=== PATIENT | male | born 1980 ===

== ENCOUNTER 2020-08-26 17:00 | Emergency (ER) | payer OTHER, MEDICAID, SELFPAY ==
[2020-08-26 17:39] VITALS: BP 160/112; BP 170/100; PULSE 83; PULSE 89; RESP 16; TEMP 36.5; O2SAT 97; O2SAT 98; BMI 38.9
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
[2020-08-26] MEDS: Ibuprofen 800 MG TABLET PO (18:39)
[2020-08-26 19:23] VITALS: BP 158/107; PULSE 61; RESP 17; O2SAT 98
== END 2020-08-26 19:31 | disposition home or self-care (01) ==
PROVIDERS: Emergency Provider Internal Medicine
DX: S80.01XA Contusion of right knee, initial encounter (principal); S20.213A Contusion of bilateral front wall of thorax, initial encounter; R07.89 Other chest pain; M25.561 Pain in right knee; Y29.XXXA Contact with blunt object, undetermined intent, initial encounter; Y93.9 Activity, unspecified; Y92.810 Car as the place of occurrence of the external cause
CPT/HCPCS: 71046; 73564; 99283; 99284

== ENCOUNTER 2020-09-13 11:12 | Emergency (ER) | payer OTHER, MEDICAID, SELFPAY ==
[2020-09-13 11:24] VITALS: BP 130/89; PULSE 103; RESP 16; TEMP 36.9; O2SAT 97; BMI 35.4
--- NOTE | 2020-09-13 11:30 | XR_ITS ---
EXAMINATION: CR CHEST CLINICAL INFORMATION: Chest pain. COMPARISON: Several prior chest x-rays, most recent of which is dated 08/26/2020. TECHNIQUE: AP upright portable view of the chest was obtained. FINDINGS: EKG leads overlie the chest. The cardiomediastinal silhouette is within normal limits in size. Lungs bilaterally are symmetrically expanded and clear. No focal consolidation, effusion or pneumothorax is seen. Bony structures are unremarkable. XR/XR chest 1V IMPRESSION: Unremarkable examination.
--- NOTE | 2020-09-13 11:31 | ECG_ITS ---
Test Reason : CP Blood Pressure : / mmHG Vent. Rate : 094 BPM Atrial Rate : 094 BPM P-R Int : 152 ms QRS Dur : 088 ms QT Int : 356 ms P-R-T Axes : 024 -15 -01 degrees QTc Int : 445 ms Normal sinus rhythm Voltage criteria for left ventricular hypertrophy Nonspecific T wave abnormality Inferior leads Abnormal ECG When compared with ECG of 17-MAY-2020 13:04, No significant change was found Heart rate has increased Referred By: Reji Sorenson Electronically Signed By:GEOFF CRUZ MD
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
[2020-09-13 11:47] VITALS: PULSE 110; RESP 18
[2020-09-13 11:53] LABS: Basophils Absolute Auto 0.1 X10*3/uL (0.0-0.2); Basophils Percent Auto 0.5 % (0-2); Eosinophils Absolute Auto 0.1 X10*3/uL (0.0-0.4); Eosinophils Percent Auto 1.5 % (0-4); Hematocrit 46.4 % (42-52); Hemoglobin 15.9 g/dl (14.0-18.0); Imm Gran Abs Auto 0.03 X10*3/uL (0.00-0.03); Imm Gran Pct Auto 0.3 % (0.0-0.4); Lymphocytes Absolute Auto 2.4 X10*3/uL (1.2-4.9); Lymphocytes Percent Auto 25.2 % (20-40); MANUAL DIFF FLAG NO; Mean Corpuscular HGB Conc 34.3 g/dl (31.0-36.0); Mean Corpuscular Hemoglobin 29.8 pg (27.0-33.0); Mean Corpuscular Volume 86.9 fL (80-98); Monocytes Absolute Auto 0.7 X10*3/uL (0.1-1.2); Monocytes Percent Auto 7.2 % (2-11); Neutrophils Absolute Auto 6.1 X10*3/uL (2.0-8.3); Neutrophils Percent Auto 65.3 % (45-73); Platelet Count 272 X10*3/uL (160-400); Red Blood Count 5.34 X10*6/uL (4.60-5.80); Red Cell Distribution Width 13.7 % (11.0-16.0); White Blood Count 9.4 X10*3/uL (4.8-10.8)
[2020-09-13 12:05] LABS: D Dimer < 200 NG/ML
[2020-09-13 12:25] LABS: Anion Gap 12 (12-20); Blood Urea Nitrogen 22 mg/dL (9-16); Calcium 8.8 mg/dL (8.4-10.2); Carbon Dioxide 29 mmol/L (22-29); Chloride 105 mmol/L (96-108); Creatinine Clr Calc Pharmacy 69.9; Estimated Glomerular Filt Rate 57; Glucose Random 100 mg/dL (60-115); Potassium 4.2 mmol/l (3.3-5.1); Sodium 142 mmol/L (135-145)
[2020-09-13 12:33] LABS: B Type Natriuretic Peptide < 10 pg/mL (<100); Troponin-I High Sensitivity < 3.5 ng/L (<3.5-35.0)
== END 2020-09-13 13:04 | disposition home or self-care (01) ==
PROVIDERS: Emergency Provider Emergency Medicine; PCP Family Medicine
DX: S20.213A Contusion of bilateral front wall of thorax, initial encounter (principal); R07.9 Chest pain, unspecified; I10 Essential (primary) hypertension; V43.52XA Car driver injured in collision with other type car in traffic accident, initial encounter; Y93.9 Activity, unspecified; Y92.410 Unspecified street and highway as the place of occurrence of the external cause; Y99.9 Unspecified external cause status; Z79.899 Other long term (current) drug therapy
CPT/HCPCS: 36415; 71045; 80048; 83880; 84484; 85025; 85379; 93005; 99283; 99285

== ENCOUNTER 2020-10-27 11:52 | Outpatient (REF) | payer MEDICAID, SELFPAY | END 2020-10-27 11:53 | disposition home or self-care (01) | LOC: HO.LAB 11:52 | PROVIDERS: PCP Family Medicine; Visit Provider Internal Medicine | DX: Z20.828 Contact with and (suspected) exposure to other viral communicable diseases (principal) | CPT/HCPCS: C9803; U0003 ==

== ENCOUNTER 2020-11-13 14:59 | Emergency (ER) | payer MEDICAID, SELFPAY ==
[2020-11-13 15:21] VITALS: BP 153/98; PULSE 87; RESP 18; TEMP 37.3; O2SAT 97; BMI 38.0
[2020-11-13 15:41] VITALS: BP 161/101; PULSE 73; RESP 24; TEMP 36.9; O2SAT 98
--- NOTE | 2020-11-13 15:49 | XR_ITS ---
EXAMINATION: XR CHEST CLINICAL INFORMATION: Rule out pneumonia. COMPARISON: Several priors. Most recent of 09/13/20. TECHNIQUE: Frontal view of the chest was obtained. FINDINGS: No significant abnormality is noted involving the heart, lungs, mediastinum, bony thorax or soft tissues. No focal consolidation or other abnormality. XR/XR chest 1V IMPRESSION: Unremarkable examination.
[2020-11-13 16:00] VITALS: BP 140/67; PULSE 76; RESP 18; TEMP 36.7; O2SAT 97
--- NOTE | 2020-11-13 16:12 | ED.URI ---
HPI - URI/Sore Throat General Chief Complaint: Upper Respiratory Symptoms Stated Complaint: cough,dirrhea, Time Seen by Provider: 11/13/20 15:49 Source: patient Mode of arrival: ambulatory Limitations: no limitations History of Present Illness HPI Narrative: 40-year-old male with past medical history of hypertension, migraines here with complaints of cough, body aches, tactile temps, diarrhea times several days. at home has COVID. He had a test on November 10 which is negative. Continued symptoms. No shortness of breath, chest pain, vomiting, abdominal pain. MD elicited complaint: cough Onset (ago): day(s) Consistency: constant Severity: mild Able to tolerate fluids by mouth: Yes Exacerbating factors: nothing Relieving factors: nothing Associated symptoms: fever, chills, myalgias, cough and diarrhea Treatments prior to arrival: none Related Data Previous Rx's Medication Instructions Recorded naproxen 500 mg PO BID PRN #20 tab 08/26/20 Allergies Allergy/AdvReac Type Severity Reaction Status Date / Time No Known Allergies Allergy Verified 08/26/20 18:28 Review of Systems Review of Systems: Yes all other systems are reviewed and are negative Constitutional: Constitutional: Reports no additional constitutional complaints, Reports body ache(s), Reports chills, Reports fever(s), Denies headache(s) and Denies weakness Eyes: Eyes: Reports no additional eye complaints and Denies change in vision ENT: Reports system reviewed and no additional complaints, except as documented, Denies dizziness, Denies headache(s), Denies nasal congestion, Denies nasal discharge and Denies neck pain Cardiovascular: Cardiovascular: Reports no additional cardiovascular complaints, Denies chest pain, Denies leg edema and Denies dyspnea Respiratory: Respiratory: Reports no additional respiratory complaints, Reports cough and Denies dyspnea Gastrointestinal: Gastrointestinal: Reports no additional gastrointestinal complaints, Denies abdominal pain, Reports diarrhea, Denies nausea and Denies vomiting Genitourinary: Genitourinary: Denies urinary incontinence Musculoskeletal: Musculoskeletal: Reports no additional musculoskeletal complaints, Denies back pain, Denies arthralgias, Denies joint swelling, Denies neck pain, Denies numbness and Denies tingling Integumentary/Breasts: Skin/Breast: Reports system reviewed and no additional complaints, except as docu and Denies rash Neurologic: Denies Abnormal speech present, Denies dizziness, Denies headache(s), Denies numbness, Denies tingling and Denies weakness PMFSH Past Medical History Attestation statement: The following information was validated with the patient. Source: old records reviewed and nursing notes reviewed Medical History Hernia HTN (hypertension) Migraines Social History Social History Alcohol intake: never Smoking Status: Never smoker Advance Directives: No Advance Directives Information Provided: No Physical Exam Vital Signs: Vital Signs: Last Vital Signs Temp 98.0 F 11/13/20 16:00 Pulse 76 11/13/20 16:00 Resp 18 11/13/20 16:00 BP 140/67 H 11/13/20 16:00 Pulse Ox 97 11/13/20 16:00 Body Mass Index 38.0 Const: General: cooperative, healthy appearing, comfortable and no acute distress Orientation/consciousness: patient oriented x3 Limitations: no limitations HENMT: Head: Yes normal to inspection Ears: hearing grossly normal bilaterally General nose exam: Normal external nose present Face and sinus: Yes normal facial exam Mouth: Normal oral and palatal mucosa present Throat: Yes posterior oropharynx normal Eyes: General: appearance normal, both eyes and all related structures Pupils: Equal, round and reactive pupils present Neck: Neck: Yes normal visual inspection Chest: Chest palpation & inspection: normal inspection of the chest Resp: Effort & Inspection: normal respiratory effort Auscultation: clear to auscultation bilaterally Cardio: Rate: regular rate Rhythm: regular rhythm Peripheral pulses: Peripheral pulses 2+ throughout GI: Inspection: Yes normal to inspection Palpation (GI): Soft to palpation and nontender Auscultation: normal bowel sounds Back/Spine/Pelvis: Thoracic/Lumbar Spine: thoracic and lumbar spine normal to inspection Skin: General skin exam: no rashes or lesions noted Neuro: General: patient oriented x3, no focal motor deficits and normal sensation to monofilament Cranial nerves: Yes Equal, round and reactive pupils present Cognition (Neuro): normal cognition Speech: No Abnormal speech present Gait exam (Neuro): Normal gait present Motor exam (neuro): 5/5 motor strength present throughout Extrem: General: Yes normal to inspection Course Course Course Narrative: Flu like symptoms x 4 days. Will check covid, CXR. 1800-chest x-ray is negative. COVID test is positive. Patient has stable vital signs and stable oxygenation. Reviewed findings with the patient. Reviewed worrisome signs and symptoms and when to return to the emergency department. Comfortable discharge home. MDM - URI/Sore Throat Medical Records Attestation: I reviewed the patient's medical records. Lab Data Attestation: I reviewed the patient's lab results. Labs: Lab Results 11/13/20 Range/Units 16:26 Coronavirus (PCR) POSITIVE A (Negative) Influenza Type A (PCR) NEGATIVE (Negative) Influenza Type B (PCR) NEGATIVE (Negative) RSV RNA Qual (PCR) NEGATIVE (Negative) Imaging Data Chest x-ray: Attestation: I personally reviewed and interpreted this imaging study as follows: Radiologist's impression: EXAMINATION: XR CHEST CLINICAL INFORMATION: Rule out pneumonia. COMPARISON: Several priors. Most recent of 09/13/20. TECHNIQUE: Frontal view of the chest was obtained. FINDINGS: No significant abnormality is noted involving the heart, lungs, mediastinum, bony thorax or soft tissues. No focal consolidation or other abnormality. XR/XR chest 1V IMPRESSION: Unremarkable examination. Discharge Plan Discharge Clinical Impression: COVID-19 Patient Disposition: Home, Self-Care Instructions: COVID-19 (Coronavirus Disease 2019) (ED) Additional Instructions: Your test today for COVID was positive. You need to self isolate for total of 10 days from when her symptoms started and he must to resolve for 24 hours. Motrin or Tylenol for pain or fever as needed Increase fluids, rest Prescriptions: No Action naproxen 500 mg tablet 500 mg PO BID PRN (Reason: pain) Qty: 20 RF: 0 Referrals: Yue Mei DO [Primary Care Provider] - 2 days Stand Alone Forms: Work/School Release Interventions: ED Discharge Assessment Last Done: 11/13/20 18:05 Discharge Date/Time: 11/13/20 18:05
[2020-11-13 17:27] LABS: Influenza A PCR NEGATIVE (Negative); Influenza B PCR NEGATIVE (Negative); Resp Syncy Virus RNA Qual PCR NEGATIVE (Negative); SARS COV2 PCR INHOUSE POSITIVE (Negative)
== END 2020-11-13 18:05 | disposition home or self-care (01) ==
PROVIDERS: Nurse Practitioner Family; Emergency Provider Emergency Medicine; PCP Family Medicine
DX: U07.1 COVID-19 (principal)
CPT/HCPCS: 0241U; 71045; 99283; 99284

== ENCOUNTER 2021-04-28 19:49 | Emergency (ER) | payer MEDICAID, SELFPAY ==
--- NOTE | ~2021-04-28 | XR_ITS ---
EXAMINATION: XR CHEST CLINICAL INFORMATION: Tachycardia COMPARISON: 11/13/2020 TECHNIQUE: 2 views of the chest were obtained. FINDINGS: No significant abnormality is noted involving the heart, lungs, mediastinum, bony thorax or soft tissues. XR/XR chest 2V IMPRESSION: Unremarkable examination.
--- NOTE | 2021-04-28 08:58 | ECG_ITS ---
Test Reason : HYPERTENSIVE Blood Pressure : / mmHG Vent. Rate : 105 BPM Atrial Rate : 105 BPM P-R Int : 146 ms QRS Dur : 080 ms QT Int : 348 ms P-R-T Axes : 015 -21 -06 degrees QTc Int : 459 ms Sinus tachycardia Voltage criteria for left ventricular hypertrophy Abnormal ECG When compared with ECG of 28-APR-2021 21:33, No significant change was found Referred By: Tali Biswas Electronically Signed By:HAILY RIVERO
[2021-04-28 20:14] VITALS: BP 179/107; PULSE 120; RESP 20; TEMP 36.8; O2SAT 97; BMI 42.5
[2021-04-28 21:21] VITALS: BP 159/111; PULSE 100; RESP 20; O2SAT 98
[2021-04-28 21:31] LABS: MANUAL DIFF FLAG NO
[2021-04-28 21:32] LABS: Basophils Percent Auto 0.4 % (0-2); Eosinophils Absolute Auto 0.4 X10*3/uL (0.0-0.4); Eosinophils Percent Auto 3.8 % (0-4); Imm Gran Abs Auto 0.04 X10*3/uL (0.00-0.03); Imm Gran Pct Auto 0.4 % (0.0-0.4); Lymphocytes Percent Auto 27.1 % (20-40); Mean Corpuscular HGB Conc 34.1 g/dl (31.0-36.0); Mean Corpuscular Hemoglobin 29.2 pg (27.0-33.0); Mean Corpuscular Volume 85.8 fL (80-98); Mean Platelet Volume 11.6 fL (9.4-12.4); Monocytes Absolute Auto 0.8 X10*3/uL (0.1-1.2); Monocytes Percent Auto 6.7 % (2-11); Neutrophils Absolute Auto 6.9 X10*3/uL (2.0-8.3); Neutrophils Percent Auto 61.6 % (45-73); Platelet Count 252 X10*3/uL (160-400); Red Blood Count 5.13 X10*6/uL (4.60-5.80); Red Cell Distribution Width 14.1 % (11.0-16.0); White Blood Count 11.2 X10*3/uL (4.8-10.8)
[2021-04-28 21:40] LABS: Prothrombin Time 12.4 SEC (10.8-13.0)
[2021-04-28 21:43] LABS: Partial Thromboplastin Time 38.8 SEC (24.1-38.0)
[2021-04-28 22:03] LABS: Alanine Aminotransferase 32 U/L (0-40); Albumin Level 4.3 g/dL (3.5-5.0); Alkaline Phosphatase 77 U/L (39-117); Anion Gap 12 (12-20); Aspartate Amino Transferase 23 U/L (5-37); Bilirubin Total 0.3 mg/dL (0.0-1.0); Blood Urea Nitrogen 19 mg/dL (9-16); Calcium 9.1 mg/dL (8.4-10.2); Carbon Dioxide 26 mmol/L (22-29); Chloride 106 mmol/L (96-108); Creatinine Clr Calc Pharmacy 82.6; Estimated Glomerular Filt Rate > 60; Glucose Random 117 mg/dL (60-115); Potassium 3.6 mmol/L (3.3-5.1); Sodium 140 mmol/L (135-145); Total Protein 6.8 g/dL (6.5-8.0)
[2021-04-28 22:07] LABS: Troponin-I High Sensitivity 6.3 ng/L (<3.5-35.0)
[2021-04-28 23:07] VITALS: BP 154/111; PULSE 86; RESP 16; O2SAT 96
[2021-04-28 23:09] VITALS: BP 144/103
--- NOTE | 2021-04-28 23:15 | PC.NURSE ---
UA obtained and sent.
[2021-04-28 23:24] LABS: Glucose Urine UA NEG (NEG); Leukocyte Esterase Urine NEG (NEG); Nitrite Urine NEG (NEG); Specific Gravity - Urine 1.025 (1.005-1.025); Urine Blood NEG (NEG); Urine Ketones NEG (NEG); Urine Protein NEG (NEG-TRACE)
[2021-04-28 23:26] LABS: Appearance Urine CLEAR; Color Urine YELLOW
[2021-04-28 23:41] LABS: Amphetamine Screen Urine Not Detected (Not Detect); Barbiturates, Urine Not Detected (Not Detect); Benzodiazepines Screen Urine Not Detected (Not Detect); Cannabinoid Screen Urine Not Detected (Not Detect); Cocaine Screen Urine Not Detected (Not Detect); Opiate Screen Urine Not Detected (Not Detect); Phencyclidine Screen Urine Not Detected (Not Detect)
--- NOTE | 2021-04-28 23:58 | ED.DIZZY ---
HPI - Dizziness General Chief Complaint: Dizziness Stated Complaint: high bp Time Seen by Provider: 04/28/21 23:33 Source: patient Mode of arrival: ambulatory Limitations: no limitations History of Present Illness HPI Narrative: 40-year-old male presents with dizziness, high blood pressure, and nausea for approximately 1 day. He does report to take his medications intermittently, and is prescribed lisinopril, hydralazine, and another medication that he is not quite sure the name of. He did not report any illicit drug use, or any alcohol intake. He denies loss of balance, chest pain and pressure, palpitations, shortness of breath, shortness breath on exertion, abdominal pain, abdominal distention, dysuria, hematuria, vomiting, diarrhea, constipation, edema, weakness, changes in vision, or any other concerning symptoms. MD elicited complaint: dizziness Onset (ago): day(s) (1) Timing: gradual onset Severity: moderate Description: room spinning and lightheadedness History of similar symptoms: Yes Exacerbating factors: movement/ambulation and change in body position Relieving factors: nothing Associated symptoms: nausea Related Data Previous Rx's Medication Instructions Recorded naproxen 500 mg PO BID PRN #20 tab 08/26/20 Allergies Allergy/AdvReac Type Severity Reaction Status Date / Time No Known Allergies Allergy Verified 04/28/21 20:14 Review of Systems Review of Systems: Constitutional: Positive headache, positive dizziness, positive elevated blood pressure, No Fever, No Chills ENT/Mouth: No Ear Pain, No Hoarseness, No sore throat Eyes: No Eye Pain, No Swelling, No Redness, No Foreign Body Cardiovascular: No Chest Pain, No SOB Respiratory: No Cough, No Dyspnea Gastrointestinal: No Nausea, No Vomiting, No Diarrhea, No abdominal Pain Genitourinary: No Dysuria, No Hematuria Musculoskeletal: Now joint pain, No Myalgias, No Joint Swelling Skin: No Skin lacerations, No rash Neuro: No Weakness, No Numbness, No Paresthesias, No Loss of Consciousness, No Dizziness, No Headache Psych: No Anxiety/Panic, No Depression Heme/Lymph: no easy bruising, no Lymphadenopathy Endocrine: No Polyuria, No Polydipsia Yes all other systems are reviewed and are negative [facility] Past Medical History Attestation statement: The following information was validated with the patient. Source: old records reviewed Medical History Hernia HTN (hypertension) Migraines Social History Social History Alcohol intake: never Advance Directives: No Physical Exam Vital Signs: Vital Signs: Last Vital Signs Temp 98.3 F 04/28/21 20:14 Pulse 80 04/29/21 00:36 Resp 20 04/29/21 00:35 BP 136/88 04/29/21 00:36 Pulse Ox 96 04/28/21 23:07 Body Mass Index 42.5 Appearance: Alert. Oriented X3. No acute distress. Head: Normal external exam. Normocephalic. Atraumatic. No Geiger signs noted. No raccoon eyes noted Eyes: PERRLA. EOMI. Conjunctiva and sclera normal. Eyelids normal. ENT: TM's Normal. Pharynx normal. Uvula midline. Moist mucous membranes. No trismus noted. No drooling noted. No muffled voice noted. Neck: Normal inspection. Neck supple. No adenopathy. No meningeal signs. No neck mass noted. CVS: Normal heart rate and rhythm. Heart sound normal. No murmurs noted. Pulses equal to all extremities. Respiratory: No respiratory distress. Painless inspiration. Breath sounds normal. No wheezes/rales/rhonchi noted. Chest nontender. No accessory muscle usage noted or decreased air movement noted. Abdomen: Soft and nontender, obese. Bowel sounds normal in all 4 quadrants. No distention noted. No organomegaly noted. No visible injury noted. Back: No CVA tenderness. Full range of motion noted. Skin: Skin warm and dry. Normal skin color. Normal skin turgor. No rashes/lesions/lacerations noted. Extremities: No lower extremity edema. Extremities exhibit normal range of motion. Extremities nontender. Neuro: cranial nerves 2-12 intact, no focal neural deficits, strength 5/5 to all extremities, No motor deficit. No sensory deficit. Course Course Course Narrative: 40-year-old male presents with dizziness, and hypertension. Will rule out ACS, order lab values. Troponins are negative. BUN elevated at 19, urinalysis is negative, tox screen is negative. Chest x-ray is negative. Patient admitted that he has not been taking his medications properly. He was supposed take hydralazine twice a day today however he did not. He does not recall if he took his lisinopril this morning. Detailed discussion regarding necessity of taking medications properly discussed with patient and family. Will give 50 mg of hydralazine per his home dosage and discharged home. Patient verbalized understanding of and agrees plan of care discharge home. MDM - Dizziness MDM Narrative Medical decision making narrative: Hypertension, medication noncompliance Differential Diagnosis Differential diagnosis: Likely benign paroxysmal positional vertigo Medical Records Attestation: I reviewed the patient's medical records. Lab Data Attestation: I reviewed the patient's lab results. Result diagrams: 04/28/21 21:27 04/28/21 21: Labs: Lab Results 04/28/21 04/28/21 04/28/21 Range/Units 21:27 21:27 21:27 WBC 11.2 H (4.8-10.8) X10*3/uL RBC 5.13 (4.60-5.80) X10*6/uL Hgb 15.0 (14.0-18.0) g/dl Hct 44.0 (42-52) % MCV 85.8 (80-98) fL MCH 29.2 (27.0-33.0) pg MCHC 34.1 (31.0-36.0) g/dl RDW 14.1 (11.0-16.0) % Plt Count 252 (160-400) X10*3/uL MPV 11.6 (9.4-12.4) fL Immature Gran % (Auto) 0.4 (0.0-0.4) % Neut % (Auto) 61.6 (45-73) % Lymph % (Auto) 27.1 (20-40) % [place] % (Auto) 6.7 (2-11) % Eos % (Auto) 3.8 (0-4) % Baso % (Auto) 0.4 (0-2) % Lymph # (Auto) 3.0 (1.2-4.9) X10*3/uL [place] # (Auto) 0.8 (0.1-1.2) X10*3/uL Eos # (Auto) 0.4 (0.0-0.4) X10*3/uL Baso # (Auto) 0.0 (0.0-0.2) X10*3/uL Abs Immat Gran (auto) 0.04 H (0.00-0.03) X10*3/uL Absolute Neuts (auto) 6.9 (2.0-8.3) X10*3/uL Absolute Nucleated RBC 0.000 (0.0-0.012) X10*3/uL Nucleated RBC % (auto) 0.0 (0.0-0.2) /100WBC PT 12.4 (10.8-13.0) SEC INR 1.0 (0.9-1.1) APTT 38.8 H (24.1-38.0) SEC Sodium 140 (135-145) mmol/L Potassium 3.6 (3.3-5.1) mmol/L Chloride 106 (96-108) mmol/L Carbon Dioxide 26 (22-29) mmol/L Anion Gap 12 (12-20) BUN 19 H (9-16) mg/dL Creatinine 1.28 (0.5-1.4) mg/dL Estim Creat Clear Calc 82.6 Estimated GFR > 60 Random Glucose 117 H (60-115) mg/dL Calcium 9.1 (8.4-10.2) mg/dL Total Bilirubin 0.3 (0.0-1.0) mg/dL AST 23 (5-37) U/L ALT 32 (0-40) U/L Alkaline Phosphatase 77 (39-117) U/L Troponin I High Sens (<3.5-35.0) ng/L Total Protein 6.8 (6.5-8.0) g/dL Albumin 4.3 (3.5-5.0) g/dL Urine Color Urine Appearance Urine pH (5.0-8.0) Ur Specific [place] (1.005-1.025) Urine Protein (NEG-TRACE) MG/DL Urine Glucose (UA) (NEG) MG/DL Urine Ketones (NEG) MG/DL Urine Blood (NEG) Urine Nitrite (NEG) Ur Leukocyte Esterase (NEG) Urine Opiates Screen (Not Detect) Ur Barbiturates Screen (Not Detect) Ur Phencyclidine Scrn (Not Detect) Ur Amphetamines Screen (Not Detect) U Benzodiazepines Scrn (Not Detect) Urine Cocaine Screen (Not Detect) U Marijuana (THC) Screen (Not Detect) COVID-19 (MELONIE) (Negative) COVID-19 Clin Com 04/28/21 04/28/21 04/28/21 Range/Units 21:27 23:14 23:14 WBC (4.8-10.8) X10*3/uL RBC (4.60-5.80) X10*6/uL Hgb (14.0-18.0) g/dl Hct (42-52) % MCV (80-98) fL MCH (27.0-33.0) pg MCHC (31.0-36.0) g/dl RDW (11.0-16.0) % Plt Count (160-400) X10*3/uL MPV (9.4-12.4) fL Immature Gran % (Auto) (0.0-0.4) % Neut % (Auto) (45-73) % Lymph % (Auto) (20-40) % [place] % (Auto) (2-11) % Eos % (Auto) (0-4) % Baso % (Auto) (0-2) % Lymph # (Auto) (1.2-4.9) X10*3/uL [place] # (Auto) (0.1-1.2) X10*3/uL Eos # (Auto) (0.0-0.4) X10*3/uL Baso # (Auto) (0.0-0.2) X10*3/uL Abs Immat Gran (auto) (0.00-0.03) X10*3/uL Absolute Neuts (auto) (2.0-8.3) X10*3/uL Absolute Nucleated RBC (0.0-0.012) X10*3/uL Nucleated RBC % (auto) (0.0-0.2) /100WBC PT (10.8-13.0) SEC INR (0.9-1.1) APTT (24.1-38.0) SEC Sodium (135-145) mmol/L Potassium (3.3-5.1) mmol/L Chloride (96-108) mmol/L Carbon Dioxide (22-29) mmol/L Anion Gap (12-20) BUN (9-16) mg/dL Creatinine (0.5-1.4) mg/dL Estim Creat Clear Calc Estimated GFR Random Glucose (60-115) mg/dL Calcium (8.4-10.2) mg/dL Total Bilirubin (0.0-1.0) mg/dL AST (5-37) U/L ALT (0-40) U/L Alkaline Phosphatase (39-117) U/L Troponin I High Sens 6.3 (<3.5-35.0) ng/L Total Protein (6.5-8.0) g/dL Albumin (3.5-5.0) g/dL Urine Color YELLOW Urine Appearance CLEAR Urine pH 6.0 (5.0-8.0) Ur Specific [place] 1.025 (1.005-1.025) Urine Protein NEG (NEG-TRACE) MG/DL Urine Glucose (UA) NEG (NEG) MG/DL Urine Ketones NEG (NEG) MG/DL Urine Blood NEG (NEG) Urine Nitrite NEG (NEG) Ur Leukocyte Esterase NEG (NEG) Urine Opiates Screen Not Detected (Not Detect) Ur Barbiturates Screen Not Detected (Not Detect) Ur Phencyclidine Scrn Not Detected (Not Detect) Ur Amphetamines Screen Not Detected (Not Detect) U Benzodiazepines Scrn Not Detected (Not Detect) Urine Cocaine Screen Not Detected (Not Detect) U Marijuana (THC) Screen Not Detected (Not Detect) COVID-19 (MELONIE) (Negative) COVID-19 Clin Com 04/29/21 Range/Units 00:15 WBC (4.8-10.8) X10*3/uL RBC (4.60-5.80) X10*6/uL Hgb (14.0-18.0) g/dl Hct (42-52) % MCV (80-98) fL MCH (27.0-33.0) pg MCHC (31.0-36.0) g/dl RDW (11.0-16.0) % Plt Count (160-400) X10*3/uL MPV (9.4-12.4) fL Immature Gran % (Auto) (0.0-0.4) % Neut % (Auto) (45-73) % Lymph % (Auto) (20-40) % [place] % (Auto) (2-11) % Eos % (Auto) (0-4) % Baso % (Auto) (0-2) % Lymph # (Auto) (1.2-4.9) X10*3/uL [place] # (Auto) (0.1-1.2) X10*3/uL Eos # (Auto) (0.0-0.4) X10*3/uL Baso # (Auto) (0.0-0.2) X10*3/uL Abs Immat Gran (auto) (0.00-0.03) X10*3/uL Absolute Neuts (auto) (2.0-8.3) X10*3/uL Absolute Nucleated RBC (0.0-0.012) X10*3/uL Nucleated RBC % (auto) (0.0-0.2) /100WBC PT (10.8-13.0) SEC INR (0.9-1.1) APTT (24.1-38.0) SEC Sodium (135-145) mmol/L Potassium (3.3-5.1) mmol/L Chloride (96-108) mmol/L Carbon Dioxide (22-29) mmol/L Anion Gap (12-20) BUN (9-16) mg/dL Creatinine (0.5-1.4) mg/dL Estim Creat Clear Calc Estimated GFR Random Glucose (60-115) mg/dL Calcium (8.4-10.2) mg/dL Total Bilirubin (0.0-1.0) mg/dL AST (5-37) U/L ALT (0-40) U/L Alkaline Phosphatase (39-117) U/L Troponin I High Sens (<3.5-35.0) ng/L Total Protein (6.5-8.0) g/dL Albumin (3.5-5.0) g/dL Urine Color Urine Appearance Urine pH (5.0-8.0) Ur Specific [place] (1.005-1.025) Urine Protein (NEG-TRACE) MG/DL Urine Glucose (UA) (NEG) MG/DL Urine Ketones (NEG) MG/DL Urine Blood (NEG) Urine Nitrite (NEG) Ur Leukocyte Esterase (NEG) Urine Opiates Screen (Not Detect) Ur Barbiturates Screen (Not Detect) Ur Phencyclidine Scrn (Not Detect) Ur Amphetamines Screen (Not Detect) U Benzodiazepines Scrn (Not Detect) Urine Cocaine Screen (Not Detect) U Marijuana (THC) Screen (Not Detect) COVID-19 (MELONIE) Negative (Negative) COVID-19 Clin Com See Note Imaging Data Chest x-ray: Attestation: I personally reviewed and interpreted this imaging study as follows: Radiologist's impression: EXAMINATION: XR CHEST CLINICAL INFORMATION: Tachycardia COMPARISON: 11/13/2020 TECHNIQUE: 2 views of the chest were obtained. FINDINGS: No significant abnormality is noted involving the heart, lungs, mediastinum, bony thorax or soft tissues. XR/XR chest 2V IMPRESSION: Unremarkable examination Discharge Plan Discharge Clinical Impression: Dizziness Hypertension Qualifiers: Hypertension type: essential hypertension Qualified Code(s): I10 - Essential (primary) hypertension Patient Disposition: Home, Self-Care Instructions: Hypertension (ED), Dizziness (ED) Additional Instructions: You were evaluated for elevated blood pressure and dizziness. You must take her medication as prescribed. If you continue to not follow your doctor's instructions you are extraordinary risk for heart attack and stroke. Please take your medications as your doctor prescribes them. That means if your physician orders hydralazine twice a day, please take your hydralazine twice a day. Thank you for choosing this emergency department for evaluation. Please follow-up with primary care physician as needed. Return to the emergency department for any new, concerning, or worsening symptoms. Prescriptions: No Action naproxen 500 mg tablet 500 mg PO BID PRN (Reason: pain) Qty: 20 RF: 0 Stand Alone Forms: Work/School Release Interventions: ED Discharge Assessment Last Done: 04/29/21 00:46 Discharge Date/Time: 04/29/21 00:47
[2021-04-29 00:16] VITALS: BP 155/100; PULSE 80; RESP 20
--- NOTE | 2021-04-29 00:20 | PC.NURSE ---
Covid swab obtained. Per pt, he takes Lisinopril 40 mg in the morning and Hydralazine 50 mg BID. Per pt, he is noncompliant with his medications and only takes them sometimes. Pt educated on proper medication adherence. Per pt, he took his Lisinopril and first dose of Hydralazine this morning but has not taken his second dose. [employer] aware. Plan for PM dose of Hydralazine.
[2021-04-29 00:35] VITALS: BP 136/88; PULSE 80; RESP 20
[2021-04-29 00:36] VITALS: BP 136/88; PULSE 80
[2021-04-29] MEDS: hydrALAZINE HCl 50 MG TABLET PO (00:36)
[2021-04-29 00:38] LABS: COVID-19 Test Negative (Negative); IDNOW Serial# 9DD0AD1C
== END 2021-04-29 00:47 | disposition home or self-care (01) ==
PROVIDERS: Nurse Practitioner Family; Physician Assistant; Emergency Provider Emergency Medicine Emergency Medical Services; PCP Family Medicine
DX: R42 Dizziness and giddiness (principal); I10 Essential (primary) hypertension; Z79.899 Other long term (current) drug therapy; Z91.14 Patient's other noncompliance with medication regimen; Z20.822 Contact with and (suspected) exposure to COVID-19
CPT/HCPCS: 36415; 71046; 80053; 80307; 81003; 84484; 85025; 85610; 85730; 87635; 93005; 96374; 99284

== ENCOUNTER 2021-10-04 12:21 | Emergency (ER) | payer MEDICAID, SELFPAY ==
--- NOTE | ~2021-10-04 | CT_ITS ---
EXAMINATION: CT HEAD WITHOUT CONTRAST CLINICAL INFORMATION: Headache. COMPARISON: CT head dated from 05/17/2020. TECHNIQUE: Contiguous axial imaging was performed from the skull base to vertex without intravenous administration of contrast. This CT examination was performed using dose optimization techniques as appropriate, variously including the following: *Automated exposure control *Adjustment of mA and/or kV according to patient size (this includes techniques or standardized protocols for targeted exams where dose is matched to indication/reason for exam; i.e. extremities or head) *Use of iterative reconstruction technique DLP: 761 mGy-cm FINDINGS: There is no evidence of acute intracranial hemorrhage or edematous territorial infarction. There is no abnormal attenuation within the brain parenchyma. Kaplan-white matter differentiation is preserved. The ventricles are normal in size and configuration. No evidence for obstructive hydrocephalus. No abnormal mass effect or midline shift. No extra-axial fluid collections. No acute soft tissue or osseous abnormalities. The mastoid air cells and paranasal sinuses are clear. CT/CT head/brain wo con IMPRESSION: No evidence of acute intracranial hemorrhage or edematous territorial infarction.
[2021-10-04 13:23] VITALS: BP 186/122; PULSE 68; RESP 19; TEMP 36.8; O2SAT 99; BMI 42.5
--- NOTE | 2021-10-04 15:33 | ED_ITS ---
HPI - Headache General Chief Complaint: Headache Stated Complaint: Headache/vomiting Time Seen by Provider: 10/04/21 15:24 Source: patient Mode of arrival: ambulatory Limitations: no limitations History of Present Illness HPI Narrative: 41 yo male with past medical history Of hypertension, migraines here with complaints of generalized headache since waking this morning with associated photophobia and nausea and vomiting. Patient has history of migraines and this feels similar to his previous migraines. He tried taking some Tylenol at home with continued symptoms. Patient takes hydralazine, lisinopril and hydrochlorothiazide for his blood pressure which he has been on for several months and has been compliant with taking these. Tells me that his blood pressure is always elevated. He denies any chest pain, shortness of breath, abdominal pain, blurry vision, weakness, numbness or tingling Related Data Previous Rx's Medication Instructions Recorded naproxen 500 mg tablet 500 mg PO BID PRN #20 tab 08/26/20 Allergies Allergy/AdvReac Type Severity Reaction Status Date / Time No Known Allergies Allergy Verified 04/28/21 20:14 Review of Systems Review of Systems: Yes all other systems are reviewed and are negative Constitutional: Constitutional: Reports no additional constitutional complaints, Denies body ache(s), Denies chills, Denies fever(s), Reports headache(s) and Denies weakness Eyes: Eyes: Reports no additional eye complaints, Denies change in vision and Reports photophobia ENT: Reports system reviewed and no additional complaints, except as documented, Denies dizziness, Reports headache(s), Denies nasal congestion, Denies nasal discharge and Denies neck pain Cardiovascular: Cardiovascular: Reports no additional cardiovascular complaints, Denies chest pain, Denies leg edema and Denies dyspnea Respiratory: Respiratory: Reports no additional respiratory complaints, Denies cough and Denies dyspnea Gastrointestinal: Gastrointestinal: Reports no additional gastrointestinal complaints, Denies abdominal pain, Denies diarrhea, Reports nausea and Reports vomiting Genitourinary: Genitourinary: Denies urinary incontinence Musculoskeletal: Musculoskeletal: Reports no additional musculoskeletal compla ints, Denies back pain, Denies arthralgias, Denies joint swelling, Denies neck pain, Denies numbness and Denies tingling Integumentary/Breasts: Skin/Breast: Reports system reviewed and no additional complaints, except as docu and Denies rash Neurologic: Reports system reviewed and no additional complaints, except as documented, Denies Abnormal speech present, Denies dizziness, Reports headache(s), Denies numbness, Denies tingling and Denies weakness PMFSH Past Medical History Attestation statement: The following information was validated with the patient. Source: old records reviewed and nursing notes reviewed Medical History Hernia HTN (hypertension) Migraines Social History Social History Alcohol intake: never Advance Directives: No Advance Directives Information Provided: No Physical Exam Vital Signs: Vital Signs: Last Vital Signs Temp 97.9 F 10/04/21 15:36 Pulse 88 10/04/21 17:33 Resp 16 10/04/21 15:36 BP 154/98 H 10/04/21 17:33 Pulse Ox 99 10/04/21 15:36 Body Mass Index 42.5 Const: General: cooperative, healthy appearing, comfortable and no acute distress Orientation/consciousness: patient oriented x3 Limitations: no li mitations HENMT: Head: Yes normal to inspection Ears: hearing grossly normal bilaterally and TM's normal bilaterally General nose exam: Normal external nose present Face and sinus: Yes normal facial exam Mouth: Normal oral and palatal mucosa present Throat: Yes posterior oropharynx normal Eyes: General: appearance normal, both eyes and all related structures Pupils: Equal, round and reactive pupils present Direct Ophthalmoscopy: photophobia Neck: Neck: Yes normal visual inspection Chest: Chest palpation & inspection: normal inspection of the chest Resp: Effort & Inspection: normal respiratory effort Auscultation: clear to auscultation bilaterally Cardio: Rate: regular rate Rhythm: regular rhythm Peripheral pulses: Peripheral pulses 2+ throughout GI: Inspection: Yes normal to inspection Palpation (GI): Soft to palpation and nontender Auscultation: normal bowel sounds Back/Spine/Pelvis: Thoracic/Lumbar Spine: thoracic and lumbar spine normal to inspection Skin: General skin exam: no rashes or lesions noted Neuro: General: patient oriented x3, no focal motor deficits and normal sensation to monofilament Cranial nerves: Yes CN's II-XII intact bilaterally, Yes Equal, round and reactive pupils present, Yes Bilaterally intact EOM present, Yes Nystagmus not present, Yes Normal facial strength present and Yes Midline tongue present Cognition (Neuro): normal cognition Speech: No Abnormal speech present Gait exam (Neuro): Normal gait present Motor exam (neuro): 5/5 motor strength present throughout Sensory Exam: Normal double simultaneous stimulation for sensation Coordination: [id number] test normal, [id number] test normal and tandem gait normal Extrem: General: Yes normal to inspection Course Course Course Narrative: 41-year-old male with a history of hypertension migraines here with complaints of generalized headache with photophobia and nausea and vomiting since waking this morning. History of migraines and feels similar to migraines. Normal neurological exam. Patient is hypertensive but tells me he has history of same despite taking his daily medications. Will place PIV and give reglan, benadryl. Due for afternoon dose of hydralazine so will order this. Check CT head. 1750- CT scan head normal. headache is resolved after receiving IV medicat.ions. likely migraine. blood pressure improved with patient's own home medications reviewed findings with patient. Reviewed worrisome signs and symptoms and when to return to the emergency department. Comfortable discharge home. MDM - Headache MDM Narrative Medical decision making narrative: Less likely sah with gradual onset, normal neuro exam, normal CT scan Differential Diagnosis Differential diagnosis: Likely migraine and subarachnoid hemorrhage Medical Records Attestation: I reviewed the patient's medical records. Lab Data Attestation: I reviewed the patient's lab results. Imaging Data CT scan - head: Attestation: I personally reviewed and interpreted this imaging study as follows: Radiologist's impression: FINDINGS: There is no evidence of acute intracranial hemorrhage or edematous territorial infarction. There is no abnormal attenuation within the brain parenchyma. Kaplan-white matter differentiation is preserved. The ventricles are normal in size and configuration. No evidence for obstructive hydrocephalus. No abnormal mass effect or midline shift. No extra-axial fluid collections. No acute soft tissue or osseous abnormalities. The mastoid air cells and paranasal sinuses are clear. ? CT/CT head/brain wo con IMPRESSION: No evidence of acute intracranial hemorrhage or edematous territorial infarction. ? Discharge Plan Discharge Clinical Impression: Migraine, Hypertension Patient Disposition: Home, Self-Care Instructions: Migraine Headache (ED), Chronic Hypertension (ED) Additional Instructions: your CT scan was normal your blood pressure improved with yourr afternoon blood pressure medication avoid migraine triggers. increase fluids and stay well hydrated. follow-up with your primary care doctor in regards to your high blood pressure Prescriptions: No Action naproxen 500 mg tablet 500 mg PO BID PRN (Reason: pain) Qty: 20 RF: 0 Referrals: [place],[facility] [Primary Care Provider] - 2 days
[2021-10-04 15:36] VITALS: BP 182/123; PULSE 72; RESP 16; TEMP 36.6; O2SAT 99
[2021-10-04 15:49] VITALS: BP 182/123; PULSE 72
[2021-10-04] MEDS: diphenhydrAMINE HCL 50 MG/ML VIAL 25 MG IVPUSH (15:49)
[2021-10-04] MEDS: hydrALAZINE HCl 50 MG TABLET PO (15:49)
[2021-10-04] MEDS: 0.9 % Sodium Chloride 1,000 ML 999 ML IV (15:49)
[2021-10-04] MEDS: Metoclopramide HCl 10 MG/2 ML VIAL IVPUSH (15:49)
[2021-10-04 17:33] VITALS: BP 154/98; PULSE 88
== END 2021-10-04 18:57 | disposition home or self-care (01) ==
PROVIDERS: Emergency Provider Emergency Medicine
DX: G43.909 Migraine, unspecified, not intractable, without status migrainosus (principal); I10 Essential (primary) hypertension; Z79.899 Other long term (current) drug therapy
CPT/HCPCS: 70450; 96361; 96374; 96375; 99284; J1200; J2765

== ENCOUNTER 2021-10-29 09:08 | Outpatient (REF) | payer MEDICAID, SELFPAY ==
[2021-10-29 09:32] LABS: MANUAL DIFF FLAG NO
[2021-10-29 10:03] LABS: Basophils Absolute Auto 0.1 X10*3/uL (0.0-0.2); Basophils Percent Auto 0.5 % (0-2); Eosinophils Absolute Auto 0.2 X10*3/uL (0.0-0.4); Eosinophils Percent Auto 1.5 % (0-4); Hemoglobin 15.3 g/dl (14.0-18.0); Imm Gran Abs Auto 0.06 X10*3/uL (0.00-0.03); Imm Gran Pct Auto 0.6 % (0.0-0.4); Lymphocytes Absolute Auto 2.9 X10*3/uL (1.2-4.9); Lymphocytes Percent Auto 27.3 % (20-40); Mean Corpuscular HGB Conc 33.3 g/dl (31.0-36.0); Mean Corpuscular Hemoglobin 29.1 pg (27.0-33.0); Mean Corpuscular Volume 87.5 fL (80.0-98.0); Monocytes Absolute Auto 0.8 X10*3/uL (0.1-1.2); Monocytes Percent Auto 7.4 % (2-11); Neutrophils Absolute Auto 6.8 x10*3/uL (2.0-8.3); Neutrophils Percent Auto 62.7 % (45-73); Platelet Count 273 X10*3/uL (160-400); Red Blood Count 5.26 X10*6/uL (4.60-5.80); Red Cell Distribution Width 14.3 % (11.0-16.0); White Blood Count 10.8 X10*3/uL (4.8-10.8)
[2021-10-29 10:32] LABS: Alanine Aminotransferase 22 U/L (0-40); Albumin Level 4.2 g/dL (3.5-5.0); Alkaline Phosphatase 64 U/L (39-117); Anion Gap 12 (12-20); Aspartate Amino Transferase 15 U/L (5-37); Bilirubin Direct < 0.2 mg/dL (0.0-0.5); Bilirubin Total 0.3 mg/dL (0.0-1.0); Blood Urea Nitrogen 20 mg/dL (9-16); Calcium 9.2 mg/dL (8.4-10.2); Carbon Dioxide 27 mmol/L (22-29); Chloride 105 mmol/L (96-108); Cholesterol 125 mg/dL; Estimated Glomerular Filt Rate 60; Glucose Random 97 mg/dL (60-115); HDL Cholesterol 37 mg/dL; LDL Cholesterol Calculated 64 mg/dl; Potassium 4.2 mmol/L (3.3-5.1); Sodium 140 mmol/L (135-145); Total Protein 6.7 g/dL (6.5-8.0); Triglycerides 122 mg/dL
[2021-10-29 10:37] LABS: Estimated Average Glucose 120 mg/dL; Hemoglobin A1c % 5.8 %
[2021-10-29 10:44] LABS: Hepatitis A Antibody IgG Nonreactive (Nonreactive); Syphilis Screen Nonreactive (Nonreactive); ~Hepatitis A Antibody IgG 0.29 S/CO (0.00-0.99)
[2021-10-29 10:45] LABS: Creatinine Urine 86.22 mg/dL; Microalbum/Creatinine Ratio Ur 403.6 ug/mg cr
[2021-10-29 10:46] LABS: HIV AB/AG Nonreactive (Nonreactive); HIV Num 1 0.07 S/CO (0.00-0.99); ~HepC Num1 0.07 S/CO (0.00-0.79); ~Hepatitis C Antibody Nonreactive (Nonreactive)
[2021-10-29 10:54] LABS: Free T4 (Free Thyroxine) 1.31 ng/dL (0.71-1.85); Thyroid Stimulating Hormone 2.87 uIU/mL (0.32-4.0); Vitamin D 25-OH Total 31.7 ng/mL (>30)
[2021-10-29 14:30] LABS: CT PCR NOT DETECTED (Not Detect.); NG PCR NOT DETECTED (Not Detect.)
== END 2021-10-29 09:09 | disposition home or self-care (01) ==
LOC: HO.LAB 09:08
PROVIDERS: PCP Family Medicine; Visit Provider Family Medicine
DX: I10 Essential (primary) hypertension (principal); R73.01 Impaired fasting glucose; R84.5 Abnormal microbiological findings in specimens from respiratory organs and thorax
CPT/HCPCS: 80048; 80061; 80076; 82043; 82306; 83036; 84439; 84443; 85025; 86708; 86780; 86803; 87389; 87491; 87591

== ENCOUNTER 2022-03-23 08:35 | Emergency (ER) | payer MEDICAID, SELFPAY ==
[2022-03-23 08:51] VITALS: BP 141/95; PULSE 120; RESP 18; TEMP 37.7; O2SAT 97; BMI 42.5
[2022-03-23 09:39] LABS: COVID-19 Test Negative (Negative); IDNOW Serial# 08D9AD1C; Influenza A Positive (Negative); Influenza B2 Negative (Negative)
--- NOTE | 2022-03-23 10:43 | ED_ITS ---
HPI - URI/Sore Throat General Chief Complaint: General Medical Stated Complaint: cold cough abd pain wound check Time Seen by Provider: 03/23/22 10:31 Source: patient and family ( at bedside with similar symptoms) Mode of arrival: ambulatory Limitations: no limitations History of Present Illness HPI Narrative: 41-year-old male presenting to the ED with URI symptoms for the past 4 days started after his had similar symptoms he reports subjective fevers, chills, fatigue, malaise, nasal congestion/rhinorrhea with productive cough with clear/yellow colored sputum. Reports that he is not vaccinated to the flu although vaccinated to COVID. He denies any other sick contacts other than his . He reports that he also had surgery to his abdomen approximately 2-3 weeks ago and has his kristen scheduled to be removed on March 25 and would just like for his kristen to be evaluated although he has no pain to the site or any purulent drainage. denies any recent travel. He denies any measured fever, di zziness, headaches, neck pain/stiffness, trouble swallowing or breathing, chest pain or shortness of breath, dyspnea on exertion, orthopnea, palpitations, lower extremity edema or calf tenderness, nausea/vomiting/diarrhea or constipation, abdominal pain, rashes or any other symptoms complaints or concerns at this time. MD elicited complaint: fever, cough, rhinorrhea and nasal congestion Onset (ago): day(s) Consistency: constant and improved Severity: mild Description of mucous: clear, watery and yellow Able to tolerate fluids by mouth: Yes Exacerbating factors: other (Coughing) Relieving factors: nothing Context: sick contacts ( with similar symptoms although no other similar symptoms) Associated symptoms: fever, chills, myalgias, headache, rhinorrhea, nasal congestion and cough Treatments prior to arrival: none Related Data Previous Rx's Medication Instructions Recorded naproxen 500 mg tablet 500 mg PO BID PRN #20 tab 08/26/20 albuterol sulfate 90 mcg/actuation 1 inh INHALATION QID PRN #8.5 g 03/23/22 aerosol inhaler azithromycin 250 mg tablet See Rx Instructions .ROUTE 03/23/22 .COMPLEX #6 tab prednisone 20 mg tablet 40 mg PO DAILY 5 Days #10 tab 03/23/22 Allergies Allergy/AdvReac Type Severity Reaction Status Date / Time No Known Allergies Allergy Verified 04/28/21 20:14 Review of Systems Review of Systems: Constitutional : + fever/chills/fatigue/malaise, No Weight loss, No Night Sweats ENT/Mouth : + nasal congestion/rhinorrhea, No Hearing loss, No Ear Pain, No Sinus Pain, No Hoarseness, No sore throat, No Swallowing Difficulty Eyes: No Eye Pain, No Swelling, No Redness, No Foreign Body, No Discharge, No Vision Changes Cardiovascular : No Chest Pain, No SOB, No Dyspnea on Exertion, No Orthopnea, No Edema, No Palpitations Respiratory : + Cough, + Sputum, No Wheezing, No Smoke Exposure, No Dyspnea Gastrointestinal : No Nausea, No Vomiting, No Diarrhea, No Constipation, No abdominal Pain, No Hematochezia, No Melena Genitourinary : no irregular bleeding, No Dysuria, No Urinary Frequency, No Hematuria, No Urinary Incontinence, No Urgency, No Flank Pain, No Urinary Flow Changes, No Hesitancy Musculoskeletal : No joint pain, + Myalgias, No Joint Swelling Skin : No Skin Lesions, No rash Neuro : No Weakness, No Numbness, No Paresthesias, No Loss of Consciousness, No Dizziness, No Headache Psych : No Anxiety/Panic, No Depression, No SI/HI/AH/VH, No Social Issues, Heme/Lymph: No Bruising, No Bleeding,No Lymphadenopathy Endocrine : No Polyuria, No Polydipsia, No Temperature Intolerance Yes all other systems are reviewed and are negative [facility] Past Medical History Attestation statement: The following information was validated with the patient. Medical History Hernia HTN (hypertension) Migraines Social History Social History Alcohol intake: never Advance Directives: No Advance Directives Information Provided: No Physical Exam Vital Signs: Vital Signs: Last Vital Signs Temp 100 F 03/23/22 08:51 Pulse 120 H 03/23/22 08:51 Resp 18 03/23/22 08:51 BP 141/95 H 03/23/22 08:51 Pulse Ox 97 03/23/22 08:51 BMI result Body Mass Index 42.5 vital signs have been reviewed as normal and appeared to be correct. Blood pressure normal. Heart rate normal. Respiration rate normal. Temperature normal. Oxygen saturation normal. Appearance: Alert. Oriented X3. No acute distress. Head: Normal external exam. Normocephalic. Atraumatic. Eyes: PERRLA. EOMI. Conjunctiva and sclera normal. Eyelids normal. ENT: EAC normal. TM's Normal. Pharynx normal. Uvula midline. Moist mucous membranes. No lesions/ulcerations or masses noted on the tongue. Normal voice. No trismus noted. No drooling noted. No muffled voice noted. Neck: Normal inspection. Neck supple. FROM. No adenopathy. Thyroid Normal. No tracheal deviation noted. No crepitus is noted. No meningeal signs. No neck mass noted. No signs of trauma noted. CVS: Normal heart rate and rhythm. Heart sound normal. Pulses normal throughout. No murmurs/rales/gallops. Respiratory: No respiratory distress. Painless inspiration. Breath sounds normal. No wheezes/rales/rhonchi noted. Chest nontender. No crepitus is noted. No signs of trauma noted. No accessory muscle usage noted or decreased air movement noted. No signs of trauma. Abdomen: Soft and nontender. Bowel sounds normal in all 4 quadrants. No distention noted. No organomegaly noted. No visible injury noted. Patient does have approximately 4-5 sites of kristen in place mild erythema surrounding margins which appears healing not consistent with cellulitis. No purulent drainage/fluctuance noted. Back: No CVA tenderness. Full range of motion noted. Nontender. No signs of trauma. Patient neuro intact bilaterally and distally on all 4 extremities. Patient's reflexes intact bilaterally and distally on all 4 extremities. No rashes/lesion/induration/fluctuance or signs of infection noted. Skin: Skin warm and dry. Normal skin color. Normal skin turgor. No rashes/lesions/lacerations noted. Extremities: No lower extremity edema. No calf tenderness is noted. Extremities exhibit normal range of motion and nontender. Neuro: Oriented X 3. No motor deficit. No sensory deficit. Reflexes normal. Normal steady gait. No focal neuro deficits noted. CN's II-XII intact bilaterally? Vascular: + radial pulses/+ 2 distal pedal pulses/+2 dorsalis pedis b/l. Normal cap refill. No cyanosis noted to upper extremity nails and lower extremity toes nails. Course Course Course Narrative: 41-year-old male came out positive for influenza A. Will give Motrin due to patient has a low-grade fever of 100.0. No additional labs or imaging are indicated. Will DC home with symptomatic treatment instructions to self isolate and to return if any new or worsening symptoms follow up with primary care provider. Patient understands agrees with this plan. MDM - URI/Sore Throat Medical Records Attestation: I reviewed the patient's medical records. Lab Data Attestation: I reviewed the patient's lab results. Labs: Lab Results 03/23/22 03/23/22 Range/Units 08:50 08:50 COVID-19 (MELONIE) Negative (Negative) COVID-19 Clin Com See Note Influenza Type A (ASHANTI) Positive A (Negative) Influenza Type B (ASHANTI) Negative (Negative) Influenza A & B Note See Note Discharge Plan Discharge Clinical Impression: Influenza A, Fever Patient Disposition: Home, Self-Care Instructions: Influenza (ED), Flu Shot (Vaccine) for Adults (ED), Droplet Precautions (ED) Prescriptions: New azithromycin 250 mg tablet See Rx Instructions .ROUTE .COMPLEX Qty: 6 0RF Rx Instructions: take 500 mg today (day 1), then 250 mg for 4 days (days 2-5) prednisone 20 mg tablet 40 mg PO DAILY 5 Days Qty: 10 0RF albuterol sulfate 90 mcg/actuation HFA aerosol inhaler 1 inh inhalation QID PRN (Reason: shortness of breath or wheezing) Qty: 8.5 0RF No Action naproxen 500 mg tablet 500 mg PO BID PRN (Reason: pain) Qty: 20 0RF Referrals: Yue Mei DO [Primary Care Provider] - 2 days Print Language: Hungarian
[2022-03-23] MEDS: Ibuprofen 800 MG TABLET PO (10:48)
== END 2022-03-23 10:56 | disposition home or self-care (01) ==
PROVIDERS: Emergency Provider Emergency Medicine; PCP Family Medicine
DX: J10.1 Influenza due to other identified influenza virus with other respiratory manifestations (principal); R05.9 Cough, unspecified; R10.9 Unspecified abdominal pain; M79.10 Myalgia, unspecified site; R51.9 Headache, unspecified; Z20.822 Contact with and (suspected) exposure to COVID-19; Z79.899 Other long term (current) drug therapy
CPT/HCPCS: 87502; 87635; 99283; 99284

== ENCOUNTER 2023-01-21 10:26 | Emergency (ER) | payer MEDICAID, SELFPAY ==
[2023-01-21 10:28] VITALS: BP 150/96; PULSE 99; RESP 18; TEMP 36.4; O2SAT 98; BMI 46.0
--- NOTE | 2023-01-21 12:32 | ED_ITS ---
HPI - Ear Problem General Chief complaint: Ear Problems Stated complaint: Diff hearing L&R ear Time Seen by Provider: 01/21/23 11:11 Source: patient Mode of arrival: ambulatory History of Present Illness HPI Narrative: 42-year-old male with a past medical history of hernia, HTN, migraines, presenting to the ED complaining of bilateral ear clogging x4 days, worse on the right. Also reports acute on chronic right foot pain s/p injury many years ago. Denies hearing loss, drainage from the ear, fever/chills, sore throat, cough, new or recent foot injury/trauma or fall MD Complaint: decreased hearing Location: bilateral Duration: constant Related Data Previous Rx's Medication Instructions Recorded naproxen 500 mg tablet 500 mg PO BID PRN pain #20 tabs 08/26/20 albuterol sulfate 90 mcg/actuation 1 inh inhalation QID PRN shortness 03/23/22 aerosol inhaler of breath or wheezing #8.5 grams azithromycin 250 mg tablet See Rx Instructions PO .COMPLEX #6 03/23/22 tabs prednisone 20 mg tablet 40 mg PO DAILY rash 5 days #10 tabs 03/23/22 amoxicillin 875 mg-potassium 1 tab PO BID 7 days #14 tabs 01/21/23 clavulanate 125 mg tablet Allergies Allergy/AdvReac Type Severity Reaction Status Date / Time No Known Allergies Allergy Verified 01/21/23 10:28 Review of Systems Review of Systems: Constitutional: No Fever, No Chills ENT/Mouth: + Ear Pain, +ear congestion, No Nasal Congestion, No Sinus Pain, No Hoarseness, No sore throat, No Rhinorrhea, No Swallowing Difficulty Cardiovascular: No Chest Pain, No SOB Respiratory: No Cough, No Sputum Gastrointestinal: No Nausea, No Vomiting, No Diarrhea, No Constipation, No Abdominal pain Genitourinary: No Dysuria, No Hematuria, No Flank Pain Musculoskeletal: +joint pain, No Myalgias, No Joint Swelling Skin: No Skin Lesions, No rash Neuro: No Weakness, No Numbness, No Paresthesias Yes all other systems are reviewed and are negative; No Other Constitutional: Constitutional: Reports as per [facility] Past Medical History Attestation statement: The following information was validated with the patient. Medical History Hernia HTN (hypertension) Migraines Social History Social History Alcohol intake: never Advance Directives: No Advance Directives Information Provided: Yes Physical Exam Vital Signs: Vital Signs: Last Vital Signs Temp 97.6 F 01/21/23 10:28 Pulse 99 01/21/23 10:28 Resp 18 01/21/23 10:28 BP 150/96 H 01/21/23 10:28 Pulse Ox 98 01/21/23 10:28 BMI result Body Mass Index 46.0 Const: General: cooperative, healthy appearing, comfortable and no acute distress Orientation/consciousness: patient oriented x3 Limitations: no limitations HEENT: Head: Yes normal to inspection and Yes atraumatic Ears: hearing grossly normal bilaterally, external ears normal, TM normal on the left, mastoids normal and unable to visualize TM (due to cerumen impaction) on the right General nose exam: Normal external nose present Face and sinus: Yes normal facial exam Mouth: Normal oral and palatal mucosa present Throat: Yes posterior oropharynx normal, Yes tonsils normal, Yes uvula midline, No peritonsillar mass, No uvula laterally displaced and No uvular edema Eyes: General: appearance normal, both eyes and all related structures EOM: EOMs intact bilaterally Neck: Neck: Yes normal visual inspection, Yes no lymphadenopathy and Yes no meningeal signs Resp: Effort & Inspection: normal respiratory effort and no respiratory distress Auscultation: clear to auscultation bilaterally Cardio: Rate: regular rate Skin: Rashes: no rashes Wounds: no wounds Neuro: General: patient oriented x3, tone normal and no meningeal signs Gait exam (Neuro): Normal gait present Extrem: Other: Right foot with mild tenderness to lateral aspect. No deformity/swelling. No ecchymosis/erythema. NV intact. Ankle/tib-fib nontender General: Yes normal to inspection Procedures Ear Wax Removal Right Ear: Cerumenolytic Used: 5-10% Sodium Bicarb solution Results: Re-examined: some cerumen remains Ear Canal Exam: bleeding Noted Patient Tolerated Procedure: well Technique: ear canal irrigated and ear canal curetted Medical Decision Making Medical Decision Making MDM Narrative: 42-year-old male with a past medical history of hernia, HTN, migraines, presenting to the ED complaining of bilateral ear clogging x4 days, worse on the right. On exam vital signs stable, NAD, nontoxic appearing, right TM obscured by cerumen impaction, cleared with curette and irrigation, appears infected. Mastoids WNL. Right foot with reproducible tenderness, no deformity. Concern for otitis media. Low suspicion for otitis externa, pharyngitis/ENVIRONMENTAL TECH or mastoiditis. Concern for arthritis. Low suspicion for acute fracture/septic joint/arthritis. Plan: Ear irrigation Differential Diagnosis Differential Diagnoses: The differential diagnosis associated with the presentation includes as above Lab Data MDM Lab Attestation statement: I reviewed the patient's lab results. Discharge Plan Discharge Clinical Impression: Otitis media, Impacted cerumen Patient Disposition: Home, Self-Care Instructions: Ear Infection (ED) Additional Instructions: you have an inner ear infection Augmentin is an antibiotic please take as prescribed You have ear wax that was mostly drained in the ED today. Continue to use saline/peroxide soaks at home Follow-up with your doctor Prescriptions: New amoxicillin-pot clavulanate 875-125 mg tablet 1 tab PO BID 7 Days Qty: 14 0RF No Action naproxen 500 mg tablet 500 mg PO BID PRN (Reason: pain) Qty: 20 0RF azithromycin 250 mg tablet See Rx Instructions .ROUTE .COMPLEX Qty: 6 0RF Rx Instructions: take 500 mg today (day 1), then 250 mg for 4 days (days 2-5) prednisone 20 mg tablet 40 mg PO DAILY 5 Days Qty: 10 0RF albuterol sulfate 90 mcg/actuation HFA aerosol inhaler 1 inh inhalation QID PRN (Reason: shortness of breath or wheezing) Qty: 8.5 0RF Referrals: Yue Mei DO [Primary Care Provider] - 3 days Interventions: ED Discharge Assessment Last Done: 01/21/23 12:42 Discharge Date/Time: 01/21/23 12:42
== END 2023-01-21 12:42 | disposition home or self-care (01) ==
PROVIDERS: Emergency Provider Emergency Medicine; PCP Family Medicine
DX: H66.91 Otitis media, unspecified, right ear (principal); H61.21 Impacted cerumen, right ear; M79.671 Pain in right foot; I10 Essential (primary) hypertension; Z79.899 Other long term (current) drug therapy
CPT/HCPCS: 69210; 99283

== ENCOUNTER 2023-03-14 14:36 | Outpatient (REF) | payer MEDICAID, SELFPAY ==
--- NOTE | ~2023-03-14 | MM_ITS ---
EXAMINATION: MM DIAGNOSTIC DIGITAL BREAST TOMOSYNTHESIS, BILATERAL US DIAGNOSTIC ULTRASOUND BREAST, RIGHT CLINICAL INFORMATION: Male age 42 with pain right nipple/areola on and off for 1 month. No palpable mass. No discharge. No prior breast imaging. Family history breast cancer cousin. COMPARISON: None (current study represents initial baseline exam). TECHNIQUE: Digital breast tomosynthesis is performed in both the craniocaudal and mediolateral oblique views along with computer-aided detection (CAD). Synthesized 2D images are generated from the tomosynthesis. Ultrasound right breast is targeted to the retroareolar and periareolar region using grayscale imaging and color Doppler without and with harmonics. Internal comparison ultrasound imaging left retroareolar and periareolar region also performed at time of ultrasound. FINDINGS: There are scattered areas of fibroglandular density (ACR BI-RADS breast composition Category b). There is mild gynecomastia type pattern subareolar regions, mild right and less on left. There is no mass or architectural abnormality. No abnormal calcifications. Incidental small intramammary node seen posterior 9:00 right breast and small intramammary node posterior 3:00 left breast. The axilla and skin contours are unremarkable. No skin thickening or coarsening of the stromal markings. Ultrasound demonstrates mild subareolar gynecomastia right and trace on left. No cystic or solid mass or architectural abnormality. No skin thickening or edema tracking in soft tissue planes. No hyperemia. Results are discussed with the patient at time of visit. MM/MM tomosynthesis diagnostic BI IMPRESSION: -Mild asymmetric gynecomastia, right mild and less on left. -Unremarkable breast ultrasound. ASSESSMENT: BI-RADS 2: Benign RECOMMENDATION: Patient should be managed based on the clinical impression. If clinically indicated, further evaluation may be considered with surgical consult. Decision to proceed with biopsy should be based on clinical grounds and degree of clinical concern.
== END 2023-03-14 14:37 | disposition home or self-care (01) ==
LOC: HO.MAMMO 14:36
PROVIDERS: PCP Family Medicine; Visit Provider Family Medicine
DX: N64.4 Mastodynia (principal)
CPT/HCPCS: 76642; 77062; 77066

== ENCOUNTER 2023-04-04 17:36 | Emergency (ER) | payer MEDICAID, SELFPAY ==
--- NOTE | ~2023-04-04 | XR_ITS ---
X-ray right foot and x-ray left foot CLINICAL HISTORY: Pain. COMPARISON: Radiograph right foot 12/25/2015. TECHNIQUE: 3 views of each foot. FINDINGS: Right foot: No acute fractures or malalignment. No significant degenerative changes, erosions or chondrocalcinosis. Small dorsal calcaneal spur. Diffuse nonspecific soft tissue thickening. No unexpected radiopaque foreign bodies. Left foot: No acute fracture or malalignment. No significant degenerative changes. No erosions or chondrocalcinosis. Diffuse nonspecific soft tissue thickening. No unexpected radiopaque foreign bodies. XR/XR foot RT min 3V IMPRESSION: 1. No acute fractures or malalignment. 2. Nonspecific bilateral diffuse soft tissue thickening, correlate with physical examination.
--- NOTE | ~2023-04-04 | XR_ITS ---
X-ray right foot and x-ray left foot CLINICAL HISTORY: Pain. COMPARISON: Radiograph right foot 12/25/2015. TECHNIQUE: 3 views of each foot. FINDINGS: Right foot: No acute fractures or malalignment. No significant degenerative changes, erosions or chondrocalcinosis. Small dorsal calcaneal spur. Diffuse nonspecific soft tissue thickening. No unexpected radiopaque foreign bodies. Left foot: No acute fracture or malalignment. No significant degenerative changes. No erosions or chondrocalcinosis. Diffuse nonspecific soft tissue thickening. No unexpected radiopaque foreign bodies. XR/XR foot LT min 3V IMPRESSION: 1. No acute fractures or malalignment. 2. Nonspecific bilateral diffuse soft tissue thickening, correlate with physical examination.
[2023-04-04 17:55] VITALS: BP 128/92; PULSE 108; RESP 18; TEMP 36.9; O2SAT 97; BMI 46.9
--- NOTE | 2023-04-04 17:57 | ED.LOWEXIN ---
HPI - Extremity Injury (Lower) General Chief Complaint: Extremity Injury, Lower Stated Complaint: left foot pain Time Seen by Provider: 04/04/23 19:11 Source: patient Mode of arrival: ambulatory Limitations: no limitations History of Present Illness HPI Narrative: Patient comes to the emergency room complaining of 3 weeks of bilateral foot pain with walking. Patient denies any trauma. Related Data Previous Rx's Medication Instructions Recorded naproxen 500 mg tablet 500 mg PO BID PRN pain #20 tabs 08/26/20 albuterol sulfate 90 mcg/actuation 1 inh inhalation QID PRN shortness 03/23/22 aerosol inhaler of breath or wheezing #8.5 grams azithromycin 250 mg tablet See Rx Instructions PO .COMPLEX #6 03/23/22 tabs prednisone 20 mg tablet 40 mg PO DAILY rash 5 days #10 tabs 03/23/22 amoxicillin 875 mg-potassium 1 tab PO BID 7 days #14 tabs 01/21/23 clavulanate 125 mg tablet ibuprofen 600 mg tablet 600 mg PO TID PRN pain #20 tabs 04/04/23 Allergies Allergy/AdvReac Type Severity Reaction Status Date / Time No Known Allergies Allergy Verified 01/21/23 10:28 Review of Systems Review of Systems: Constitutional : No Weight loss, No Fever, No Chills, No Night Sweats, No Fatigue, No Malaise ENT/Mouth : No Hearing loss, No Ear Pain, No Nasal Congestion, No Sinus Pain, No Hoarseness, No sore throat, No Rhinorrhea, No Swallowing Difficulty Eyes: No Eye Pain, No Swelling, No Redness, No Foreign Body, No Discharge, No Vision Changes Cardiovascular : No Chest Pain, No SOB, No Dyspnea on Exertion, No Orthopnea, No Edema, No Palpitations Respiratory : No Cough, No Sputum, No Wheezing, No Smoke Exposure, No Dyspnea Gastrointestinal : No Nausea, No Vomiting, No Diarrhea, No Constipation, No abdominal Pain, No Hematochezia, No Melena Genitourinary : no irregular bleeding, No Dysuria, No Urinary Frequency, No Hematuria, No Urinary Incontinence, No Urgency, No Flank Pain, No Urinary Flow Changes, No Hesitancy Musculoskeletal : Bilateral foot pain with walking No joint pain, No Myalgias, No Joint Swelling Skin : No Skin Lesions, No rash Neuro : No Weakness, No Numbness, No Paresthesias, No Loss of Consciousness, No Dizziness, No Headache Psych : No Anxiety/Panic, No Depression, No SI/HI/AH/VH, No Social Issues, Heme/Lymph: No Bruising, No Bleeding,No Lymphadenopathy Endocrine : No Polyuria, No Polydipsia, No Temperature Intolerance PMF Past Medical History Medical History Hernia HTN (hypertension) Migraines Social History Social History Alcohol intake: never Smoked in Last 30 Days: No Use of substances other than those prescribed or required for medical reasons: No Advance Directives: No Advance Directives Information Provided: No Physical Exam Vital Signs: Vital Signs: Last Vital Signs Temp 98.3 F 04/04/23 19:34 Pulse 86 04/04/23 19:34 Resp 16 04/04/23 19:34 BP 129/100 H 04/04/23 19:34 Pulse Ox 98 04/04/23 19:34 O2 Del Method Room Air 04/04/23 19:34 BMI result Body Mass Index 46.9 Const: Other: Appearance: Alert. Oriented X3. No acute distress. Eyes: Pupils equal, round and reactive to light. ENT: Pharynx normal. Neck: Normal inspection. Neck supple. No lymph nodes noted. No crepitus CVS: Normal heart rate and rhythm. Pulses normal. Normal S1 and S2 Respiratory: No respiratory distress. Breath sounds normal. No Wheezing. No rales Abdomen: Soft and nontender. No rigidity. No distention. Skin: Skin warm and dry. Normal skin color. Normal skin turgor. Extremities: No lower extremity edema. No Lacerations. No Rash Neuro: Oriented X 3. No motor deficit. No sensory deficit. Moving all extremities. No slurred speech. CN 2 through 12 grossly intact Psych: calm, cooperative, normal affect Course Course Course Narrative: RME: 42 yo M w/PMHx hernia, HTN, c/o atraumatic bilateral foot pain x 3 weeks. Denies numbness, tingling, fever + tinea pedis noted to bilateral feet with tenderness to volar aspect of right foot and heel of left foot. No erythema/warmth. Neurovascularly intact X-rays ordered Full HPI, ROS and PE to be performed by primary ED provider. Medical Decision Making Medical Decision Making MDM Narrative: I discussed the x-rays with the patient, no acute findings. I discussed with the patient that he will need insoles. Patient will try [id number] 1st. If these do not work, patient will need to be seen by Podiatry for custom-made orthotics Discharge Plan Discharge Clinical Impression: Bilateral foot pain Patient Disposition: Home, Self-Care Instructions: Arthralgia (ED) Additional Instructions: Please follow-up with your primary care physician tomorrow. If you have any worsening or new symptoms, please return to the emergency room or call 911 Prescriptions: New ibuprofen 600 mg tablet 600 mg PO TID PRN (Reason: pain) Qty: 20 0RF No Action naproxen 500 mg tablet 500 mg PO BID PRN (Reason: pain) Qty: 20 0RF amoxicillin-pot clavulanate 875-125 mg tablet 1 tab PO BID 7 Days Qty: 14 0RF azithromycin 250 mg tablet See Rx Instructions .ROUTE .COMPLEX Qty: 6 0RF Rx Instructions: take 500 mg today (day 1), then 250 mg for 4 days (days 2-5) prednisone 20 mg tablet 40 mg PO DAILY 5 Days Qty: 10 0RF albuterol sulfate 90 mcg/actuation HFA aerosol inhaler 1 inh inhalation QID PRN (Reason: shortness of breath or wheezing) Qty: 8.5 0RF
[2023-04-04 19:34] VITALS: BP 129/100; PULSE 86; RESP 16; TEMP 36.8; O2SAT 98
--- NOTE | 2023-04-04 19:45 | PC.NURSE ---
pt c/o bilat foot pain, more pain in L foot than R foot h/o htn, denies DM bilat dorsalis pedis 4+
[2023-04-04 20:42] VITALS: BP 130/92; PULSE 79; RESP 14; TEMP 36.7; O2SAT 98
[2023-04-04] MEDS: Ibuprofen 600 MG TABLET PO (21:15)
--- NOTE | 2023-04-04 21:20 | PC.NURSE ---
administered ibuprofen 600 mg PO per JAN Discharge instructions given and explained to patient [id number] no apparent distress ambulates safely and independently
== END 2023-04-04 21:20 | disposition home or self-care (01) ==
PROVIDERS: Emergency Provider Emergency Medicine; PCP Family Medicine
DX: M79.672 Pain in left foot (principal); M79.671 Pain in right foot; I10 Essential (primary) hypertension
CPT/HCPCS: 73630; 99283; 99284

== ENCOUNTER 2024-04-03 17:58 | Emergency (ER) | payer OTHER, SELFPAY ==
--- NOTE | ~2024-04-03 | XR_ITS ---
EXAMINATION: XR HAND, RIGHT CLINICAL INFORMATION: Crush injury to hand COMPARISON: None available. TECHNIQUE: PA, lateral, and oblique views of the right hand. FINDINGS: The bones and soft tissues are unremarkable. No fracture. Alignment is anatomic. Joint spaces are maintained. No erosions or soft tissue calcifications. XR/XR hand RT min 3V IMPRESSION: Normal right hand.
[2024-04-03 18:08] VITALS: BP 127/77; PULSE 96; RESP 16; TEMP 36.3; O2SAT 95; BMI 43.2
--- NOTE | 2024-04-03 18:12 | ED_ITS ---
HPI - Extremity Problem General Chief complaint: Extremity Injury, Upper Stated complaint: hand inj from work Time Seen by Provider: 04/03/24 22:07 Source: patient and RN notes reviewed Mode of arrival: ambulatory Limitations: no limitations History of Present Illness ED Provider: Elis Caldera PA-C HPI Narrative: This is a 43-year-old male, with no known medical problems, who presents [facility] department with complaints of right hand pain since yesterday. Patient states that while he was at work he was on a job when suddenly a gutter fell out and pinned his against a wall. Patient reports that he immediately had pain. He states that he has been applying ice to his hand which has provided him with some relief. Denies taking any medications to treat his current symptoms. Denies any numbness, tingling, or weakness. He does feel like his right hand is swollen when compared to his left. Denies injury to his right hand in the past. He is left-handed. Denies any fevers, chills, chest pain, shortness of breath, abdominal pain, nausea, vomiting or diarrhea. No other complaints or concerns at this time. MD Complaint: extremity pain and extremity swelling Location: right Radiation: none Relieving factors: cold therapy Exacerbating factors: palpation Associated symptoms: denies other symptoms Related Data Previous Rx's ?Medication ?Instructions ?Recorded naproxen 500 mg tablet 500 mg PO BID PRN pain #20 tabs 08/26/20 albuterol sulfate 90 mcg/actuation 1 inh inhalation QID PRN shortness 03/23/22 aerosol inhaler of breath or wheezing #8.5 grams azithromycin 250 mg tablet See Rx Instructions PO .COMPLEX #6 03/23/22 tabs prednisone 20 mg tablet 40 mg (2 x 20 mg) PO DAILY rash 5 03/23/22 days #10 tabs amoxicillin 875 mg-potassium 1 tab PO BID 7 days #14 tabs 01/21/23 clavulanate 125 mg tablet ibuprofen 600 mg tablet 600 mg PO TID PRN pain #20 tabs 04/04/23 ibuprofen 600 mg tablet 600 mg PO Q6H PRN pain #30 tabs 04/03/24 Allergies Allergy/AdvReac Type Severity Reaction Status Date / Time No Known Allergies Allergy Verified 04/03/24 18:11 Review of Systems Review of Systems: Yes all other systems are reviewed and are negative Constitutional: Constitutional: Reports as per [facility] Past Medical History Attestation statement: The following information was validated with the patient. Medical History Hernia Migraines HTN (hypertension) Social History Social History Alcohol intake: never Smoked in Last 30 Days: No Use of substances other than those prescribed or required for medical reasons: No Any prior treatment program specific to substance use: No Advance Directives: No Advance Directives Information Provided: No Do you have a plan to hurt others: No Plan Physical Exam Vital Signs: Vital Signs: Last Vital Signs Temp 97.4 F 04/03/24 23:29 Pulse 89 04/03/24 23:29 Resp 17 04/03/24 23:29 BP 142/95 H 04/03/24 23:29 Pulse Ox 97 04/03/24 23:29 O2 Del Method Room Air 04/03/24 23:29 BMI result Body Mass Index 43.2 Const: General: cooperative, comfortable and no acute distress Orientation/consciousness: patient oriented x3 Limitations: no limitations HEENT: Head: Yes normal to inspection, Yes normocephalic and Yes atraumatic Ears: hearing grossly normal bilaterally General nose exam: Normal external nose present Face and sinus: Yes normal facial exam Mouth: Normal oral and palatal mucosa present, oropharynx normal and moist mucous membranes Throat: Yes posterior oropharynx normal Eyes: General: appearance normal, both eyes and all related structures Eyelids: Yes eyelids normal Conjunctivae: conjunctivae normal Sclerae: sclerae normal Pupils: Equal, round and reactive pupils present EOM: EOMs intact bilaterally Neck: Neck: Yes normal visual inspection, Yes full ROM and Yes no lymphadenopathy Lymphatic: no lymphadenopathy noted Chest: Chest palpation & inspection: normal inspection of the chest Resp: Effort & Inspection: normal respiratory effort and able to speak in complete sentences Auscultation: clear to auscultation bilaterally, no crackles, no rales, no rhonchi and no wheezes Cardio: Rate: regular rate Rhythm: regular rhythm Heart sounds: S1 normal heart sound present and S2 normal heart sound present GI: Inspection: Yes normal to inspection Skin: General skin exam: no rashes or lesions noted Trauma: no lacerations or abrasions Wounds: no wounds Neuro: General: patient oriented x3 and moves all extremities Cranial nerves: Yes Equal, round and reactive pupils present Extrem: Other: Right hand dorsal aspect there is moderate edema and ecchymosis seen, patient has tenderness palpation along the 2nd and 3rd metacarpals. No bony step-off her open wounds or lacerations. Able to make fist without difficulty. Able to oppose thumb to all digits without difficulty. Strong radial pulse. General: Yes normal to inspection Right upper extremity: normal to inspection Left upper extremity: normal to inspection Right lower extremity: normal to inspection Left lower extremity: normal to inspection Course Course Course Narrative: RME- 43-year-old male presents for evaluation of right hand injury after getting it pinned between a gutter and a wall. Plan for x-rays Medications Administered Discontinued Medications Generic Name Dose Route Start Last Admin Trade Name Freq PRN Reason Stop Dose Admin Ibuprofen 600 mg 04/03/24 22:35 04/03/24 22:53 Ibuprofen 600 Mg Tablet PO 04/03/24 22:36 600 mg ONCE ONE Administration Medical Decision Making Medical Decision Making [facility] Narrative: This is a 43-year-old male, with no known medical problems, who presents emergency department with complaints of right hand pain status post work-related injury which occurred yesterday. On arrival vital signs within normal limits. Patient has tenderness to palpation along the 2nd and 3rd metacarpals, with moderate edema seen. Differential diagnoses include fracture, contusion, sprain, strain. Less likely compartment syndrome. X-rays were obtained, no bony abnormality seen. I reviewed these x-rays and agree with the radiology report. Patient's right hand was placed in Claus wrap, educated on RICE techniques and discharged with ibuprofen. Given return precautions. Also given referral to Orthopedics should he continue to have ongoing pain. Patient understands and agrees with this treatment plan. Patient stable for discharge. Differential Diagnosis Differential Diagnoses: The differential diagnosis associated with the presentation includes See above Radiology Impression Discussion of test interpretation with radiology: I have reviewed the radiologist's reading. Radiologist Impression: TECHNIQUE: PA, lateral, and oblique views of the right hand. FINDINGS: The bones and soft tissues are unremarkable. No fracture. Alignment is anatomic. Joint spaces are maintained. No erosions or soft tissue calcifications. XR/XR hand RT min 3V IMPRESSION: Normal right hand. Dictated By: Garrett Linda MD Discharge Plan Discharge Clinical Impression: Contusion of hand, right Patient Disposition: Home, Self-Care Instructions: Contusion in Adults (ED) Additional Instructions: You were seen in the emergency department due to right hand pain. Your x-ray does not show any broken bones. Please rest, ice, use Claus wrap, and elevate your right hand. Take ibuprofen as needed for pain and symptoms. If you continue to have ongoing symptoms, you may follow-up with Orthopedics, call to make an appointment. If any new or worsening symptoms occur including but not limited to worsening pain, swelling, fevers, chills, chest pain, shortness of breath, please return for re-evaluation. Prescriptions: New ibuprofen 600 mg tablet 600 mg PO Q6H PRN (Reason: pain) Qty: 30 0RF No Action naproxen 500 mg tablet 500 mg PO BID PRN (Reason: pain) Qty: 20 0RF amoxicillin-pot clavulanate 875-125 mg tablet 1 tab PO BID 7 Days Qty: 14 0RF azithromycin 250 mg tablet See Rx Instructions .ROUTE .COMPLEX Qty: 6 0RF Rx Instructions: take 500 mg today (day 1), then 250 mg for 4 days (days 2-5) prednisone 20 mg tablet 40 mg PO DAILY 5 Days Qty: 10 0RF albuterol sulfate 90 mcg/actuation HFA aerosol inhaler 1 inh inhalation QID PRN (Reason: shortness of breath or wheezing) Qty: 8.5 0RF ibuprofen 600 mg tablet 600 mg PO TID PRN (Reason: pain) Qty: 20 0RF Referrals: [facility] [Provider Group] Stand Alone Forms: Work/School Release Interventions: ED Discharge Assessment Last Done: 04/03/24 23:29 Discharge Date/Time: 04/03/24 23:00 Print Language: Chilean
[2024-04-03 20:36] VITALS: BP 126/86; PULSE 99; RESP 18; TEMP 36.1; O2SAT 97
[2024-04-03 22:45] VITALS: BP 142/95; PULSE 89; RESP 17; TEMP 36.3; O2SAT 97
[2024-04-03] MEDS: Ibuprofen 600 MG TABLET PO (22:53)
[2024-04-03 23:29] VITALS: BP 142/95; PULSE 89; RESP 17; TEMP 36.3; O2SAT 97
== END 2024-04-03 23:00 | disposition home or self-care (01) ==
PROVIDERS: Emergency Provider Emergency Medicine; PCP Family Medicine
DX: S60.221A Contusion of right hand, initial encounter (principal); W20.1XXA Struck by object due to collapse of building, initial encounter; Y93.89 Activity, other specified; Y92.89 Other specified places as the place of occurrence of the external cause; Y99.0 Civilian activity done for income or pay; M25.541 Pain in joints of right hand
CPT/HCPCS: 73130; 99283; 99284

== ENCOUNTER 2024-07-08 10:23 | Emergency (ER) | payer OTHER, SELFPAY ==
[2024-07-08 10:31] VITALS: BP 126/90; PULSE 91; RESP 18; TEMP 36.8; O2SAT 97; BMI 42.0
[2024-07-08 11:13] LABS: COVID-19 Test Negative (Negative); IDNOW Serial# 152EDE1D
== END 2024-07-08 18:15 | disposition left against medical advice (07) ==
LOC: HO.ED 18:01
PROVIDERS: Emergency Provider Emergency Medicine; PCP Family Medicine
DX: I10 Essential (primary) hypertension (principal); Z11.52 Encounter for screening for COVID-19
CPT/HCPCS: 87635; 99281

== ENCOUNTER 2024-10-26 12:28 | Emergency (ER) | payer OTHER, SELFPAY ==
--- NOTE | ~2024-10-26 | XR_ITS ---
EXAMINATION: XR FOOT, LEFT CLINICAL INFORMATION: pain COMPARISON: X-ray of the left foot March 2023 TECHNIQUE: AP, lateral, and oblique views of the left foot. FINDINGS: The bones and soft tissues are normal. No fracture. Alignment is anatomic. Joint spaces are maintained. XR/XR foot LT min 3V IMPRESSION: Normal left foot. Electronically signed by: Genaro Siegel MD 10/26/2024 02:47 PM EST
[2024-10-26 12:53] VITALS: BP 144/96; PULSE 97; RESP 18; TEMP 37; O2SAT 98; BMI 42.6
--- NOTE | 2024-10-26 12:54 | ED.GENADULT ---
HPI - General Adult General Chief complaint: General Medical Stated complaint: L foot pain, ear pain Time Seen by Provider: 10/26/24 13:50 Source: patient Mode of arrival: ambulatory Limitations: no limitations History of Present Illness ED Provider: SUZANNE JASON PA-C HPI narrative: 44 year old male with pmhx significant for HTN and migraines presents to the ED today for evaluation of left foot pain x3 months. He reports pain to the top of his left foot since dropping a heavy piece of metal on the foot 3 months ago. Pain is 9/10 with ambulation, 3/10 at present. Reports taking Tylenol at home with temporary relief. His last dose was yesterday. Denies new injury or trauma. Denies numbness/tingling/weakness of the left foot. Additionally, he reports decreased hearing to his right ear. Admits to history of cerumen impaction requiring removal. Denies ear pain, drainage, headaches. Related Data Previous Rx's ?Medication ?Instructions ?Recorded naproxen 500 mg tablet 500 mg PO BID PRN pain #20 tabs 08/26/20 albuterol sulfate 90 mcg/actuation 1 inh inhalation QID PRN shortness 03/23/22 aerosol inhaler of breath or wheezing #8.5 grams azithromycin 250 mg tablet See Rx Instructions PO .COMPLEX #6 03/23/22 tabs prednisone 20 mg tablet 40 mg (2 x 20 mg) PO DAILY rash 5 03/23/22 days #10 tabs amoxicillin 875 mg-potassium 1 tab PO BID 7 days #14 tabs 01/21/23 clavulanate 125 mg tablet ibuprofen 600 mg tablet 600 mg PO TID PRN pain #20 tabs 04/04/23 ibuprofen 600 mg tablet 600 mg PO Q6H PRN pain #30 tabs 04/03/24 diclofenac sodium 1 % topical gel 2 g topical QID #100 grams 10/26/24 (Arthritis Pain (diclofenac)) Allergies Allergy/AdvReac Type Severity Reaction Status Date / Time No Known Allergies Allergy Verified 10/26/24 12:57 Review of Systems Review of Systems: Yes all other systems are reviewed and are negative PMFSH Past Medical History Attestation statement: The following information was validated with the patient. Source: old records reviewed and nursing notes reviewed Medical History Hernia Migraines HTN (hypertension) Social History Social History Alcohol intake: never Advance Directives: No Advance Directives Information Provided: No Physical Exam ED Vital Signs: Vital Signs - 24 hr 10/26/24 12:53 10/26/24 16:54 10/26/24 17:16 Temperature 98.6 F 97.4 F 97.4 F Pulse Rate 97 65 65 Respiratory Rate 18 16 16 Blood Pressure 144/96 H 154/97 H 154/97 H Pulse Oximetry 98 99 99 Oxygen Delivery Method Room Air Room Air Room Air BMI result Body Mass Index 42.6 hypertensive, vitals otherwise wnl General: Well appearing, in no acute distress. Skin: Warm, dry, intact. No rashes or lesions. Head: Normocephalic, atraumatic. EENT: + No pain on manipulation of left pinna or tragus. No mastoid tenderness. Left EAC without erythema, edema or discharge. TM intact without erythema, effusion, or bulging. + No pain on manipulation of right pinna or tragus. No mastoid tenderness. Right EAC with impacted cerumen. unable to fully visualize TM. Cardiac: Chest wall symmetric. RRR Lungs: Normal respiratory effort without accessory muscle use. CTA bilaterally Ext: Upper and lower extremities atraumatic, without tenderness, deformity, swelling or erythema. Full ROM throughout. Capillary refill <2 seconds in all extremities. Pulses 2+ equal and bilateral. Neuro: AOx3. Normal speech. Ambulating with steady gait. Psych: Appropriate mood and affect. Responds appropriately to questions. Course Course Course Narrative: This is an RME: Additional HPI, ROS, PE not included below will be deferred to primary provider. RME assessment and note performed by: Elis Caldera PA-C This is a 44-year-old male who presents to the ER with complaints of left foot pain x many years. Reports that the lump on his foot is now starting to bother him. Reports hx of broken foot years ago, did not have surgery on it. Reporting pain is 9/10. Denies taking any medications at home to treat his pain. Also reporting decreased hearing from right ear. +cerumen impaction to right ear. Plan: xray left foot, needs r ear irrigated Reevaluation(s) Reevaluation #1: XR left foot unremarkable. no fracture. will send diclofenac topical gel to pharmacy. cerumen removal attempted in right ear - partially removed. see procedure note. able to visualize TM - no bulging/erythema/effusion. patient reports improvement in hearing. referral for ENT provided. Patient has remained stable throughout ED visit today. Discussed worrisome signs and symptoms and when to return to the ED. All questions answered at this time. Patient is agreeable with disposition and stable for discharge. Medications Administered Discontinued Medications Generic Name Dose Route Start Last Admin Trade Name Tawana PRN Reason Stop Dose Admin Docusate Sodium 200 mg 10/26/24 14:35 10/26/24 14:48 Docusate Sodium 100 Mg/10 Ml Liquid PO 10/26/24 14:36 200 mg ONCE ONE Administration Procedures Ear Wax Removal Right Ear: Cerumenolytic Used: Colace Results: Re-examined: some cerumen remains TM Examination: TM(s) intact, normal appearance Ear Canal Exam: atraumatic Patient Tolerated Procedure: well Complications: no problems Technique: ear canal irrigated and ear canal curetted Medical Decision Making Medical Decision Making MDM Narrative: 44 year old male with pmhx significant for HTN and migraines presents to the ED today for evaluation of left foot pain x3 months. His vital signs are stable, he is afebrile. He is nontoxic appearing and in NAD. On exam, right EAC with impacted cerumen. unable to fully visualize TM. Exam of left foot unremarkable. ambulating with steady gait. I considered the following differential diagnoses: foot fracture, contusion, arthritis. unlikely dislocation, osteomyelitis, pseudo gout, gout, aa or vv occlusion, nv compromise or threat to limb. Concern for cerumen impaction. Unlikely intracranial mass, otitis media, otitis externa, malignant otitis externa, mastoiditis. Plan for imaging, cerumen disimpaction, re-evaluation. Differential Diagnosis Differential Diagnoses: The differential diagnosis associated with the presentation includes as above Admission/Observation not indicated. Independent Interpretation I performed an independent interpretation of an: Plain X-Ray Interpretation: xr left foot without fracture Radiology Impression Discussion of test interpretation with radiology: I have reviewed the radiologist's reading. Radiologist Impression: EXAMINATION: XR FOOT, LEFT CLINICAL INFORMATION: pain COMPARISON: X-ray of the left foot March 2023 TECHNIQUE: AP, lateral, and oblique views of the left foot. FINDINGS: The bones and soft tissues are normal. No fracture. Alignment is anatomic. Joint spaces are maintained. XR/XR foot LT min 3V IMPRESSION: Normal left foot. Electronically signed by: Genaro Siegel MD 10/26/2024 02:47 PM [facility] Independent Historian Clinical information obtained from an independent historian. History obtained from or confirmed by: Spouse External Record Review External record reviewed: Inpatient record Prescription Management I considered prescription management with: Pain Medication Social Determinants Patient?s care significantly limited by Social Determinants of Health including: Other Social Determinant of Health Critical Care Time Critical Care Time Critical Care Time: No Discharge Plan Discharge Clinical Impression: Chronic foot pain, Impacted cerumen of right ear Patient Disposition: Home, Self-Care Instructions: Arthralgia (ED) Additional Instructions: You were evaluated in the ED today for left foot pain. Your x-rays do not reveal fracture. I am sending diclofenac cream to your pharmacy which you can apply to your foot as needed for pain. You may also continue taking Tylenol at home. Utilize rice therapy - Rest, ice, compress, elevate the foot. You were also noted to have impacted cerumen to your right ear. This was partially removed in the ED today with improvement in hearing. Please follow-up with either your primary care provider or ENT. ENT number provided below. Call them to establish care. They will not call you. Return with any new or worsening symptoms. In the case of an emergency call 911. [facility] [address] [address] Prescriptions: New diclofenac sodium [Arthritis Pain (diclofenac)] 1 % gel 2 g topical QID Qty: 100 0RF Rx Instructions: apply to single elbow, wrist or hand; for hand includes palm/fingers/back of hand No Action naproxen 500 mg tablet 500 mg PO BID PRN (Reason: pain) Qty: 20 0RF amoxicillin-pot clavulanate 875-125 mg tablet 1 tab PO BID 7 Days Qty: 14 0RF azithromycin 250 mg tablet See Rx Instructions .ROUTE .COMPLEX Qty: 6 0RF Rx Instructions: take 500 mg today (day 1), then 250 mg for 4 days (days 2-5) prednisone 20 mg tablet 40 mg PO DAILY 5 Days Qty: 10 0RF albuterol sulfate 90 mcg/actuation HFA aerosol inhaler 1 inh inhalation QID PRN (Reason: shortness of breath or wheezing) Qty: 8.5 0RF ibuprofen 600 mg tablet 600 mg PO Q6H PRN (Reason: pain) Qty: 30 0RF ibuprofen 600 mg tablet 600 mg PO TID PRN (Reason: pain) Qty: 20 0RF Interventions: ED Discharge Assessment Last Done: 10/26/24 17:16 Discharge Date/Time: 10/26/24 17:16 Print Language: Malawian
[2024-10-26] MEDS: Docusate Sodium 100 MG/10 ML LIQUID 200 MG PO (14:48)
--- NOTE | 2024-10-26 14:50 | PC.NURSE ---
colace instilled into rt ear
--- NOTE | 2024-10-26 16:50 | PC.NURSE ---
provider irrigated patients bilat ears.
[2024-10-26 16:54] VITALS: BP 154/97; PULSE 65; RESP 16; TEMP 36.3; O2SAT 99
[2024-10-26 17:16] VITALS: BP 154/97; PULSE 65; RESP 16; TEMP 36.3; O2SAT 99
== END 2024-10-26 17:16 | disposition home or self-care (01) ==
PROVIDERS: Emergency Provider Emergency Medicine; PCP Family Medicine
DX: G89.29 Other chronic pain (principal); M79.672 Pain in left foot; H61.21 Impacted cerumen, right ear
CPT/HCPCS: 69210; 73630; 99283

== ENCOUNTER → 2024-11-19 07:50 | Outpatient (BNV) | payer SELFPAY | PROVIDERS: Emergency Provider Emergency Medicine; PCP Family Medicine; Visit Provider Internal Medicine | DX: R07.9 Chest pain, unspecified (principal) | CPT/HCPCS: 93010 ==

== ENCOUNTER 2025-03-05 10:14 | Emergency (ER) | payer OTHER, SELFPAY ==
--- NOTE | ~2025-03-05 | XR_ITS ---
EXAMINATION: XR FOOT, LEFT CLINICAL INFORMATION: puncture wound on plantar aspect, ? metal FB COMPARISON: October 26, 2024. TECHNIQUE: AP, lateral, and oblique views of the left foot. FINDINGS: No metallic or radiopaque foreign body. No acute cortical disruption or gross malalignment. No lytic or blastic lesions. XR/XR foot LT min 3V IMPRESSION: No gross foreign body. Negative exam. Electronically signed by: Gerry Cabrera MD 03/05/2025 01:11 PM EDT
[2025-03-05 10:20] VITALS: BP 152/90; PULSE 86; RESP 18; TEMP 36.8; O2SAT 99; BMI 43.6
--- OUTSIDE RECORDS SUMMARY | 2025-03-05 12:32 | XMS_ITS | Encounter Summary ---
Author Organization [employer] Address [address] [facility] [address] [place] [address] Care Team Providers Care Architectural Draftsman Name Role Phone Yue Mei DO Primary Care Provider Encounter Details Date Type Department Care Team (Late st Contact Info) Description 11/15/2022 Orders Only [facility] [address] [place] [address] Yue Ham LPN Social History Tobacco Use Types Packs/Day Years Used Date Smoking Tobacco: Never Assessed Sex and Gender Information Value Date Recorded Sex Assigned at Male 09/12/2022 10:18 AM EDT Legal Sex Male 10:18 AM EDT Gender Identity Male 09/12/2022 10:18 AM EDT Sexual Orientation Straight 09/12/2022 10 :18 AM EDT documented as of this encounter Plan of Treatment Not on file documented as of this encounter Visit Diagnoses Not on filedocumented in this encounter Care Teams Architectural Draftsman Relationship Specialty Start Date End Date Yue Mei DO [address] [place] [id number] PCP - General Family Medicine 06/03/15 documented as of this encounter
--- OUTSIDE RECORDS SUMMARY | 2025-03-05 12:32 | XMS_ITS | Encounter Summary ---
Author Organization [employer] Address [address] [facility] [address] [place] [address] Care Team Providers Care Ebd Special Education Teacher Name Role Phone Yue Mei DO Primary Care Provider Encounter Details Date Type Department Care Team (Late st Contact Info) Description 01/30/2023 Orders Only [facility] PEDS [address] [place] [address] Yue Ham LPN Social History Tobacco Use Types Packs/Day Years Used Date Smoking Tobacco: Never Smokeless Tobacco: Never Sex and Gender Information Value Date Recorded Sex Assigned at Male 09/12/2022 10:18 AM EDT Legal Sex Male 10:18 AM EDT Gender Identity Male 09/12/2022 10:18 AM EDT Sexual Orientation Straight 09/12/2022 10 :18 AM EDT documented as of this encounter Plan of Treatment Not on file documented as of this encounter Visit Diagnoses Not on filedocumented in this encounter Care Teams Ebd Special Education Teacher Relationship Specialty Start Date End Date Yue Mei DO [address] [place] [id number] PCP - General Family Medicine 06/03/15 documented as of this encounter
--- OUTSIDE RECORDS SUMMARY | 2025-03-05 12:32 | XMS_ITS | Encounter Summary ---
Author Organization [employer] Address [address] [facility] [address] [place] [address] Care Team Providers Care Car Rental Agency Manager Name Role Phone Yue Mei DO Primary Care Provider [phone] Reason for Visit * Reason Onset Date Comments Med Refill Follow up breast imaging 01/30/2023 Encounter Details Date Type Department Care Team (Late st Contact Info) Description 01/30/2023 Refill [facility] [address] [place], [place] [phone] Yue Mei DO [address] [place], [place] [id number] Social History Tobacco Use Types Packs/Day Years Used Date Smoking Tobacco: Never Smokeless Tobacco: Never Sex and Gender Information Value Date Recorded Sex Assigned at Male 09/12/2022 10:18 AM EDT Legal Sex Male 10:18 AM EDT Gender Identity Male 09/12/2022 10:18 AM EDT Sexual Orientation Straight 09/12/2022 10 :18 AM EDT documented as of this encounter Miscellaneous Notes * Telephone Encounter - Chani Summers - 02/13/2023 9:32 AM EDT Outgoing call placed to patient . I let patient know that I was unable to find Monday hours for him to complete his imaging. Patient stated that he cant miss any more work but can speak to his employer to see if he's able to leave work early if [facility] had afternoon appointments. Let patient know that due to his work schedule it might be best for him to call in and arrange the appointment himself . I provided patient with the number and let him know of the Albanian speaking staff that works there , Message forwarded to pcp as fyi. documented in this encounter Plan of Treatment Not on file documented as of this encounter Visit Diagnoses Not on filedocumented in this encounter Care Teams Car Rental Agency Manager Relationship Specialty Start Date End Date Yue Mei DO [address] [place] [address] PCP - General Family Medicine 06/03/15 documented as of this encounter
--- OUTSIDE RECORDS SUMMARY | 2025-03-05 12:32 | XMS_ITS | Encounter Summary ---
Author Organization [employer] Address [address] [facility] 7t [place] [address] Care Team Providers Care Artist Color Separation Name Role Phone Yue Mei DO Primary Care Provider [phone] Reason for Visit * Reason Comments Med Refill Encounter Details Date Type Department Care Team ([facility] st Contact Info) Description 03/13/[address] [facility] [address] [place], [place] [phone] Yue Mei DO [address] [place], [place] [phone] Social History Tobacco Use Types Packs/Day Years Used Date Smoking Tobacco: Never Smokeless Tobacco: Never Alcohol Use Standard Drinks/Week Comments Never 0 (1 standard drink = 0.6 oz pur e alcohol) Housing Stability Answer Date Recorded What is your housing situation today? I have libby loyola 09/15/[address] you li ve. Do you have problems with any of the following? None of the above 09/15/2023 Food Insecurity Answer Date Recorded Within the past 12 months, y ou worried that your food would run out before you got money to buy more: Never True 09/15/2023 Within the past 12 months,th e food you bought just didn't last and you didn't have enough money to get more: Never True 01/2023 Transportation Answer Date Recorded In the past 12 months, has l ack of transportation kept you from medical appts, meetings, work or from getting things needed for daily living? Yes, it has kept me from medical appointments or getting medications. 08/20/2023 Utilities Answer Date Recorded In the past 12 months, has t he electric, gas, oil or water company threatened to shut off services in your home? No 09/15/2023 Depression Answer Date Recorded Patient Health Questionnaire-2 Score 0 02/08/2023 Sex and Gender Information Value Date Recorded Sex Assigned at Male 09/12/2022 10:18 AM EDT Legal Sex Male 10:18 AM EDT Gender Identity Male 09/12/2022 10:18 AM EDT Sexual Orientation Straight 09/12/2022 10 :18 AM EDT documented as of this encounter Plan of Treatment Not on file documented as of this encounter Visit Diagnoses Not on filedocumented in this encounter Care Teams Artist Color Separation Relationship Specialty Start Date End Date Yue Mei DO [address] [place] [id number] PCP - General Family Medicine 06/03/15 documented as of this encounter
--- OUTSIDE RECORDS SUMMARY | 2025-03-05 12:32 | XMS_ITS | Encounter Summary ---
Author Organization [employer] Address [address] [facility] 7t [place] [address] Care Team Providers Care Local Area Network Administrator Name Role Phone Yue Mei DO Primary Care Provider Encounter Details Date Type Department Care Team (Late st Contact Info) Description 05/08/2023 Orders Only [facility] MED & PEDS [address] [place] [address] Yue Ham LPN Social History Tobacco Use Types Packs/Day Years Used Date Smoking Tobacco: Never Smokeless Tobacco: Never Alcohol Use Standard Drinks/Week Comments Never 0 (1 standard drink = 0.6 oz pur e alcohol) Depression Answer Date Recorded Patient Health Questionnaire-2 [...] on filedocumented in this encounter Care Teams Local Area Network Administrator Relationship Specialty Start Date End Date Yue Mei DO [address] [place] [address] PCP - General Family Medicine 06/03/15 documented as of this encounter
--- OUTSIDE RECORDS SUMMARY | 2025-03-05 12:32 | XMS_ITS | Encounter Summary ---
Author Organization [employer] Address [address] [facility] 7t [place] [address] Care Team Providers Care Pay Agent Name Role Phone Yue Mei DO Primary Care Provider [phone] Encounter Details Date Type Department Care Team (Late st Contact Info) Description 10/09/2023 Orders Only [facility] CHC MED & PEDS [address] [place] [address] Lexus Cao LPN Social History Tobacco Use Types Packs/Day [...] on file documented as of this encounter Procedures Procedure Name Priority Date/Time Associated Diagnosis Comments COVID-19 ID NOW (NOBLES) Routine 07/08/2024 10:36 AM EDT documented in this encounter Results * COVID-19 ID NOW (NOBLES) (07/08/2024 10:36 AM EDT) IDNOW SERIAL# [id number] [facility] COVID-19 TEST Negative Negative [facility] COVID-19 NOTE See Note [facility] Comment: Results are for the identification of SARS-CoV2 RNA. TheSARS-CoV2 RNA is generally detectable in respiratory samplesduring the acute phase of infection. Positive results areindicative of the presence of SARS-CoV-2 RNA; clinicalcorrelation with patient history and other diagnosticinformation is necessary to determine patient infectionstatus. Positive results do not rule out bacterial infectionor co- infection with other viruses.Testing facilities within the [facility] and [facility] are required to report all positive results tothe appropriate public health authorities.Negative results should be treated as presumptive and, ifinconsistent with clinical signs and symptoms or necessaryfor patient management, should be tested with differentauthorized or cleared molecular tests. Negative results donot preclude SARS-CoV2 RNA infection and should not be usedas the sole basis for patient management decisions. Negativeresults should be considered in the context of a patient'srecent exposures, history and the presence of clinical signsand symptoms consistent with COVID-19.This test has been authorized by the FDA under an EmergencyUse Authorization (EUA) for use by authorized laboratories.Testing performed on the [facility] ID NOW utilizing NAAT. 07/08/2024 10:3 6 AM EDT 07/08/2024 10:39 AM EDT us Generic External Data Provider LAB [facility]LE[facility] ORDERABLES Final Result [facility] [address] [place] [address] [phone] documented in this encounter Visit Diagnoses Not on filedocumented in this encounter Care Teams Pay Agent Relationship Specialty Start Date End Date Yue Mei DO [address] [place] [phone] PCP - General Family Medicine 06/03/15 documented as of this encounter
--- OUTSIDE RECORDS SUMMARY | 2025-03-05 12:32 | XMS_ITS | Clinical Summary ---
Author Organization [employer] Address [address] [facility] [address] [place] [address] Care Team Providers Care Wrestling Coach Name Role Phone Yue Mei DO Primary Care Provider Allergies No known active allergies Medications fluticasone (Flonase Allergy Relief) 50 MCG/ACT nasal sprayIndication s:Nasal congestion Administer 1 spray into each nostril in the morning. Shake gently. Before first use, prime pump. After use, clean tip and replace cap. 16 g 12 12/19/19 23 Active Diclofenac Sodium 1 % gel Apply 2 g topically if needed in the morning and at bedtime (pain). 150 g 3 02/09/20 23 Active acetaminophen (Tylenol) 500 MG tablet Take 2 tablets (1,000 mg) by mouth every 6 (six) hours if needed for moderate pain or fever for up to 25 doses. 50 tablet 01/17/20 24 Active hydroCHLOROthia zide (HYDRODiuril) 25 MG tablet TAKE 1 TABLET BY MOUTH EVERY MORNING 90 tablet 1 09/26/20 24 Active famotidine (Pepcid) 20 MG tablet TAKE 1 TABLET BY MOUTH TWICE DAILY 180 tablet 1 11/22/19 25 Active D3 Super Strength 50 MCG (1999 UT) capsule TAKE 1 CAPSULE BY MOUTH EVERY MORNING 90 capsule 3 12/03/19 25 Active omeprazole (PriLOSEC) [address] capsule TAKE 1 CAPSULE BY MOUTH EVERY MORNING 90 capsule 1 12/25/19 25 Active losartan (Cozaar) 100 MG tabletIndicatio ns:Hypertension , unspecified type TAKE 1 TABLET BY MOUTH EVERY MORNING 90 tablet 1 12/25/19 25 Active hydrALAZINE (Apresoline) 50 MG tabletIndicatio ns:Hypertension , unspecified type TAKE 1 TABLET BY MOUTH TWICE DAILY IN THE MORNING AND IN THE EVENING WITH FOOD 180 tablet 1 12/25/19 25 Active amLODIPine (Norvasc) 10 MG tablet TAKE 1 TABLET BY MOUTH EVERY MORNING 90 tablet 02/14/20 25 Active amLODIPine (Norvasc) 10 MG tablet Take 1 tablet (10 mg) by mouth Once per day. 90 tablet 3 02/14/20 25 026 Active amLODIPine (Norvasc) 10 MG tablet Take 1 tablet (10 mg) by mouth in the morning. 90 tablet 3 02/09/20 24 025 Discontinued Hospital, Clinic, or Other Facility Administered Medication Ordered Dose Route Frequency Start Date End Date Status cloNIDine (Catapres) tablet 0.2 mgIndications:Hypertensive urgency 0.2 mg PO Once 02/05/2024 Active Active Problems Problem Noted Date Diagnosed Date Morbid obesity 12/19/2022 Status post nephrectomy 12/19/2022 History of migraine 10/15/2022 History of nephrolithiasis 10/15/2022 Overview (10/15/2022): History of calculus of kidney Elevated fasting glucose 03/08/2016 Essential hypertension 03/08/2016 Chronic gastroesophageal reflux disease 03/08/20 16 Resolved Problems Problem Noted Date Diagnosed Date Resolved Date Obesity 03/08/2016 02/08/2023 Encounters Date Type Department Care Team Description 02/13/2025 Refill [facility] [address] [place] [address] Yue Mei DO 02/12/2025 Refill [facility] [address] [place] [address] Yue Mei DO 02/03/2025 Telephone [facility] [address] [place] [address] Yue Mei DO No Show 12/23/2024 Refill [facility] MED & PEDS [address] [place] [address] Yue Mei DO Hypertension, unspecified type 12/19/2024 Telephone [facility] [address] [place] [address] Yue Mei DO telephone call from Last 3 Months Immunizations Name Administration Dates Next Due HPV, Bivalent 11/16/2009 Hep B, Adolescent or Pediatric 01/25/2007 Pfizer Covid-19 Vaccine 12+ 06/08/2022, 1,03/11/2021 TD (adult), 2 Lf tetanus tox oid, preservative free, adsorbed 11/13/2000 Tdap 06/16/2015 Social History Tobacco Use Types Packs/Day Years Used Date Smoking Tobacco: Never Smokeless Tobacco: Never Tobacco Cessation:Counseling Given: Not Answered Alcohol Use Standard Drinks/Week Comments Never 0 [...] Orientation Straight 09/12/2022 10 :18 AM EDT Last Filed Vital Signs Vital Sign Reading Time Taken Comments Blood Pressure 158/108 07/12/2024 2:28 PM EDT Pulse 79 07/12/2024 2:28 PM EDT Temperature 36.7 ??C (98.1 ??F) 07/12/2024 2:28 PM ED T Respiratory Rate 18 07/12/2024 2:28 PM EDT Oxygen Saturation 97% 07/12/2024 2:28 PM EDT Inhaled Oxygen Concentration - - Weight 107 kg (236 lb 3.2 oz) 07/12/2024 2:28 PM EDT Height 163.5 cm (5' 4.37 ) 09/08/2022 12:10 AM E DT Body Mass Index 40.08 09/08/2022 12:10 AM EDT Plan of Treatment Health Maintenance Due Date Last Done Comments CT Colonography 1978 Colonoscopy 1978 Colorectal Cancer Screening 1978 FIT DNA/Cologuard 1978 FIT 1978 FOBT 1978 Sigmoidoscopy 1978 Alcohol/Substance Use Screening 1990 Family Planning (PISQ) 1993 Hepatitis B Vaccines (1 of 3 - 19+ 3-dose series) 1997 01/25/2007 Depression Screening 02/09/2024 02/08/2023, 02/08/2023 SDOH Screening 02/09/2024 02/08/2023 COVID-19 Vaccine (4 - 2023-2 5 season) 2024 06/08/2022, 04/01/2021, 03/11/2021 Influenza Vaccine (#1) 2024 DTaP/Tdap/Td Vaccines (2 - T d or Tdap) 06/16/2025 06/16/2015, 11/13/2000 Tobacco Screening 07/12/2025 07/12/2024 Lipid Panel 10/29/2026 10/29/2021 Zoster Vaccines (1 of 2) 2028 RSV Patients and Patients Aged 60 years or older (1 - 1-dose 75+ series) 2053 HPV Vaccines Aged Out 11/16/2009 No longer eligi ble based on patient's age to complete this topic HIV Screening Completed 10/29/2021 Hepatitis C Screening Completed 10/29/2021 HIB Vaccines Aged Out No longer eligi ble based on patient's age to complete this topic Hepatitis A Vaccines Aged Out No long er eligible based on patient's age to complete this topic IPV Vaccines Aged Out No longer eligi ble based on patient's age to complete this topic Meningococcal Vaccine Aged Out No rubi abdias eligible based on patient's age to complete this topic Pneumococcal Vaccine: Pediatrics (0 to 5 Years) and At-Risk Patients (6 to 49) Years) Aged Out No longer eligible b ased on patient's age to complete this topic RSV under 20 months Aged Out No longe r eligible based on patient's age to complete this topic Rotavirus Vaccines Aged Out No longer eligible based on patient's age to complete this topic Procedures Procedure Name Priority Date/Time Associated Diagnosis Comments THUAN HISTORICAL HEPATITIS C ANTIBODY RFLX Routine 10/29/2021 9:30 AM EST ZDIGNA HISTORICAL HIV AB/AG Routine 10/29/2021 9:30 AM EST THUAN HISTORICAL LIPID PANEL Routine 10/29/2021 9:30 AM EST from Last 3 Months or Most Recently Relevant to Health Maintenance Results * HEPATITIS C ANTIBODY RFLX (10/29/2021 9:30 AM EST) Hepatitis C Antibody Nonreactive Nonreactive [facility] Comment: Antibodies to HCV not detected; does not exclude early acute HCV infection. 10/29/2021 9:30 AM EST Yue Mei DO HISTORICAL/NON ORDERABLE LAB S Final Result [facility] [address] * HIV AB/AG (10/29/2021 9:30 AM EST) HIV AB/AG Nonreactive Nonreactive [facility] Comment: HIV-1 p24 Ag and/or HIV-1/HIV-2 Ab not detected. ?? A test result that is nonreactive does not exclude the possibility of exposure to or infection with HIV-1 and/or HIV-2. Nonreactive results in this assay for individuals with prior exposure to HIV-1 and/or HIV-2 may be due to antigen and antibody levels that are below the limit of detection of this assay. ?? The [employer] Assistant Import Manager HIV Ag/Ab Combo assay result and supplemental assay results should be interpreted in conjunction with the patient's clinical presentation, history and other laboratory results. ??If the results are inconsistent with clinical evidence, additional testing is suggested to confirm the result. 10/29/2021 9:30 AM EST us Yue Mei DO HISTORICAL/NON ORDERABLE LAB S Final Result [facility] [address] * (ABNORMAL) LIPID PANEL (10/29/2021 9:30 AM EST) Cholesterol 125 mg/dL [facility] Comment: Desirable Cholesterol: ?less than 200 mg/dL Borderline High Cholesterol: ??200-239 mg/dL High Cholesterol: ? greater than 239 mg/dL HDL Cholesterol 37 mg/dL [facility] Comment: Desirable HDL: ??greater than 40 mg/dL ?? Note: This HDL assay may give artificially ? low results in patients with liver disease. LDL Cholesterol Calculated 64 mg/dl [facility] Comment: Desirable LDL: ? less than 100 mg/dL Near Optimal/Above Optimal LDL: ??110-129 mg/dL Borderline High LDL: ? 130-159 mg/dL High LDL: ?160-189 mg/dL Very High LDL: ? greater than or equal to ?190 mg/dL Triglycerides 122 mg/dL [facility] Comment: Desirable Triglyceride: ? less than 150 mg/dL Borderline High Triglyceride ??150-199 mg/dL High Triglyceride: ?200-499 mg/dL Very High Triglyceride: ? greater than or equal to ? 5OO mg/dL Thyroid Stimulating Hormone 2.87 0.32 - 4.0 uIU/mL [facility] Comment: Note: ??A sustained TSH level above 2.5 uIU/mL may warrant ?further investigation. ? TSH 3rd Generation ([employer]) Alanine Aminotransferase 22 0 - 40 U/L [facility] Albumin Level 4.2 3.5 - 5.0 g/dL [facility] Alkaline Phosphatase 64 39 - 117 U/L [facility] Aspartate Amino Transferase 15 5 - 37 U/L [facility] Bilirubin Direct <0.2 0.0 - 0.5 mg/dL [facility] Bilirubin Total 0.3 0.0 - 1.0 mg/dL [facility] Total Protein 6.7 6.5 - 8.0 g/dL [facility] Anion Gap 12 12 - 20 [facility] Blood Urea Nitrogen 20(H) 9 - 16 mg/dL [facility] Calcium 9.2 8.4 - 10.2 mg/dL [facility] Carbon Dioxide 27 22 - 29 mmol/L [facility] Chloride 105 96 - 108 mmol/L [facility] Creatinine, Serum 1.31 0.5 - 1.4 mg/dL [facility] Estimated Glomerular Filt Rate 60 [facility] Comment: NOTE: ??For -[place]ong[place] individuals, multiply the result ?by 1.210. ?? Chronic Kidney Disease: ??Estimated GFR < 60 mL/min/1.73m2 Severe Kidney Disease: ??Estimated GFR < 15 mL/min/1.73m2 Glucose Random 97 60 - 115 mg/dL [facility] Potassium 4.2 3.3 - 5.1 mmol/L [facility] Sodium 140 135 - 145 mmol/L [facility] Vitamin D 25-OH Total 31.7 >30 ng/mL [facility] Comment: Health Based Reference Values* ?? < 20 ??ng/mL ??Deficient 20-30 ng/mL ??Insufficient > 30 ??ng/mL ??Sufficient ?? *Faye CHAHAL. N Engl J Med. 2007;357:266-280 ?? Care must be taken in interpreting Vitamin D results from different laboratories and methodologies. ??Published data demonstrated that results from patients undergoing hemodialysis may show a negative bias when tested with various automated 25-OH vitamin D assays when compared to LC-MS/MS. ?? When testing samples from patients whose predominant form of Vitamin D is Vitamin D2, such as patients receiving Vitamin D2 supplementation, results that are subtherapeutic should be confirmed with another method such as LC-MS/MS. Free T4 (Free Thyroxine) 1.31 0.71 - 1.85 ng/dL [place] [facility] 10/29/2021 9:30 AM EST us Yue Mei DO HISTORICAL/NON ORDERABLE LAB S Final Result [facility] [address] from Last 3 Months or Most Recently Relevant to Health Maintenance Insurance [employer] Care Teams Wrestling Coach Relationship Specialty Start Date End Date Yue Mei DO [address] [place] [id number] PCP - General Family Medicine 06/03/15
--- OUTSIDE RECORDS SUMMARY | 2025-03-05 12:32 | XMS_ITS | Encounter Summary ---
Author Organization [employer] Address [address] [place] [address] [address] [place] [address] Care Team Providers Care Division Field Inspector Name Role Phone Yue Mei DO Primary Care Provider Reason for Visit * Reason Comments Med Refill Encounter Details Date Type Department Care Team ([facility] st Contact Info) Description 11/11/[address] [facility] & PEDS [address] [place] [address] Yue Mei DO [address] [place], [place] [phone] Chronic GERD (Primary Dx) Social History Tobacco Use Types Packs/Day Years [...] documented as of this encounter Visit Diagnoses Diagnosis Chronic GERD- Primary documented in this encounter Care Teams Division Field Inspector Relationship Specialty Start Date End Date Yue Mei DO [address] [place], [place] [phone] PCP - General Family Medicine 06/03/15 documented as of this encounter
--- OUTSIDE RECORDS SUMMARY | 2025-03-05 12:32 | XMS_ITS | Clinical Summary ---
Author Organization [facility] [employer] ity Address [address] [place] [address] Care Team Providers Care Timber Killer Name Role Phone Unavailable Primary Care Provider Unavailabl e Social History Tobacco Use Types Packs/Day Years Used Date Smoking Tobacco: Never Assessed Sex and Gender Information Value Date Recorded Sex Assigned at Not on file Legal Sex Male 6:17 PM EST Gender Identity Not on file Sexual Orientation Not on file Plan of Treatment Health Maintenance Due Date Last Done Comments DTaP,Tdap,and Td Vaccines (1 - Tdap) 1997 Hepatitis B Vaccines (1 of 3 - 19+ 3-dose series) 1997 COVID-19 Vaccine (2023-2 5 season) 2024 Influenza Vaccine (Season Ended) 2025 HIB Vaccines Aged Out No longer eligi ble based on patient's age to complete this topic HPV Vaccines Aged Out No longer eligi ble based on patient's age to complete this topic Hepatitis A Vaccines Aged Out No long er eligible based on patient's age to complete this topic IPV Vaccines Aged Out No longer eligi ble based on patient's age to complete this topic MMR Vaccines Aged Out No longer eligi ble based on patient's age to complete this topic Meningococcal ACWY Vaccine Aged Out N o longer eligible based on patient's age to complete this topic Meningococcal B Vaccine Aged Out No l onger eligible based on patient's age to complete this topic Pneumococcal Vaccine: Pediat rics (0 to 5 Years) and At-Risk Patients (6 to 64 Years) Aged Out No longer eligible b ased on patient's age to complete this topic RSV Immunization Patients Un ange 20 months Aged Out No longer eligible b ased on patient's age to complete this topic Varicella Vaccines Aged Out No longer eligible based on patient's age to complete this topic
--- NOTE | 2025-03-05 12:33 | ED.GENADULT ---
HPI - General Adult General Chief complaint: Wound/Laceration Stated complaint: Injury On L Foot From Blade Time Seen by Provider: 03/05/25 12:33 History of Present Illness ED Provider: Becky DINERO narrative: The patient is a 44-year-old male who comes to the emergency room for evaluation of an injury to his left foot. Yesterday he was at work and he stepped on a straight razor which punctured the sole of his sneaker. The straight razor punctured the skin on the plantar aspect of his foot at the level of the metatarsal pad. He says that the razor blade broke when he removed it with a pliers. During the process he also sustained a slight injury to the tip of his right 3rd finger. He comes today because he would like to have his foot evaluated. He has not had any recent tetanus shot. He has mild pain at the site of the foot injury. He cannot be certain that there was no retained piece of razor blade in his foot. Related Data Previous Rx's ?Medication ?Instructions ?Recorded naproxen 500 mg tablet 500 mg PO BID PRN pain #20 tabs 08/26/20 albuterol sulfate 90 mcg/actuation 1 inh inhalation QID PRN shortness 03/23/22 aerosol inhaler of breath or wheezing #8.5 grams azithromycin 250 mg tablet See Rx Instructions PO .COMPLEX #6 03/23/22 tabs prednisone 20 mg tablet 40 mg (2 x 20 mg) PO DAILY rash 5 03/23/22 days #10 tabs amoxicillin 875 mg-potassium 1 tab PO BID 7 days #14 tabs 01/21/23 clavulanate 125 mg tablet ibuprofen 600 mg tablet 600 mg PO TID PRN pain #20 tabs 04/04/23 ibuprofen 600 mg tablet 600 mg PO Q6H PRN pain #30 tabs 04/03/24 diclofenac sodium 1 % topical gel 2 g topical QID #100 grams 10/26/24 (Arthritis Pain (diclofenac)) ciprofloxacin HCl 500 mg tablet 500 mg PO BID 2 days #4 tabs 03/05/25 Allergies Allergy/AdvReac Type Severity Reaction Status Date / Time No Known Allergies Allergy Verified 03/05/25 10:22 Review of Systems Review of Systems: Yes all other systems are reviewed and are negative PMFSH Past Medical History Medical History Hernia Migraines HTN (hypertension) Social History Social History Alcohol intake: never Physical Exam ED Vital Signs: Vital Signs - 24 hr 03/05/25 10:20 03/05/25 14:36 03/05/25 14:36 Temperature 98.3 F 97.9 F 97.9 F Pulse Rate 86 80 80 Respiratory Rate 18 18 18 Blood Pressure 152/90 H 139/78 139/78 Pulse Oximetry 99 99 99 Oxygen Delivery Method Room Air Room Air Room Air BMI result Body Mass Index 43.6 Const Other: The patient is a 44-year-old male who was awake, alert, pleasant, cooperative. He does not appear obviously acutely ill. HENMT Other: Face is symmetrical, mucous membranes moist Eyes General: appearance normal, both eyes and all related structures Neck Neck: Yes normal visual inspection and Yes full ROM Resp Effort & Inspection: normal respiratory effort Skin Other: There is a small area of skin injury on the plantar aspect of the left foot on the lateral metatarsal pad. There is some dried blood. I cleaned this area off and did not feel that there was any large wound present. There may be a small puncture wound. There is no suturable injury. There is also a small superficial laceration to the tip of the right 3rd finger. Neuro Other: The patient is awake and alert with a normal mental status. Moves his extremities normally with normal strength and sensation. He seems neurologically intact. Extrem Other: There is a small area of skin injury on the plantar aspect of the lateral left forefoot Medications Administered Discontinued Medications Generic Name Dose Route Start Last Admin Trade Name Freq PRN Reason Stop Dose Admin Diphtheria/Tetanus/Acell Pertussis 0.5 ml 03/05/25 12:41 03/05/25 13:14 Diphth,Pertus(Acell),Tet Adult 0.5 Ml Syringe IM 03/05/25 12:42 0.5 ml .ONCE ONE Administration Levofloxacin 500 mg 03/05/25 13:48 03/05/25 14:28 Levofloxacin 500 Mg Tablet PO 03/05/25 13:49 500 mg ONCE ONE Administration Medical Decision Making Medical Decision Making MDM Narrative: The patient is a 44-year-old male who says that he has a history of prediabetes. He comes to the emergency room for evaluation of a left foot injury that occurred when he stepped on a razor blade at work. The razor blade somehow seemed to puncture the sole of his sneaker so that there was a small injury to the plantar aspect of the left foot. He is not showing obvious signs of infection at the moment. An x-ray shows no foreign body in the foot. The patient was given a tetanus shot. Since he sustained a puncture type injury to the plantar aspect of the foot and since the razor blade that did the puncture had also punctured through the sole of the patient's sneaker the patient will be placed on a short course of prophylactic antibiotics with Pseudomonas coverage. He was given 500 mg of levofloxacin for today's dose. He was given a prescription for ciprofloxacin 500 mg b.i.d. x2 days to start tomorrow morning. He was given today and tomorrow off so he can rest and keep his foot elevated. He should follow up with the [facility] or return to the ER if acutely worse. Discharge Plan Discharge Clinical Impression: Puncture wound of foot Patient Disposition: Home, Self-Care Additional Instructions: Please keep the wound clean and covered with a Band-Aid. I recommend that you take the rest of today off work and also tomorrow. Please rest and stay off your feet. Keep the left foot elevated. I have sent a prescription for 2 days of antibiotics to your pharmacy. Please machine pecan picker the antibiotic today. Take your 1st dose of the prescribed antibiotic in the morning (you received your dose for today here in the emergency room). You has been given a work note to stay out of work today and tomorrow. If you feel that you have any worsening symptoms in your foot, especially if you experience any redness or swelling or fever or significant worsening pain, return to the emergency room. Alternatively you may contact the [facility], this is a clinic that deals with a work-related injuries. Prescriptions: New ciprofloxacin HCl 500 mg tablet 500 mg PO BID 2 Days Qty: 4 0RF No Action naproxen 500 mg tablet 500 mg PO BID PRN (Reason: pain) Qty: 20 0RF amoxicillin-pot clavulanate 875-125 mg tablet 1 tab PO BID 7 Days Qty: 14 0RF azithromycin 250 mg tablet See Rx Instructions .ROUTE .COMPLEX Qty: 6 0RF Rx Instructions: take 500 mg today (day 1), then 250 mg for 4 days (days 2-5) prednisone 20 mg tablet 40 mg PO DAILY 5 Days Qty: 10 0RF albuterol sulfate 90 mcg/actuation HFA aerosol inhaler 1 inh inhalation QID PRN (Reason: shortness of breath or wheezing) Qty: 8.5 0RF ibuprofen 600 mg tablet 600 mg PO Q6H PRN (Reason: pain) Qty: 30 0RF diclofenac sodium [Arthritis Pain (diclofenac)] 1 % gel 2 g topical QID Qty: 100 0RF Rx Instructions: apply to single elbow, wrist or hand; for hand includes palm/fingers/back of hand ibuprofen 600 mg tablet 600 mg PO TID PRN (Reason: pain) Qty: 20 0RF Referrals: [facility] [Provider Group] (Puncture wound to foot occurred at work) Stand Alone Forms: Work/School Release Interventions: ED Discharge Assessment Last Done: 03/05/25 14:36 Discharge Date/Time: 03/05/25 14:37 Print Language: Finnish
[2025-03-05] MEDS: Diphth,Pertus(ACell),Tet Adult 0.5 ML SYRINGE IM (13:14)
[2025-03-05] MEDS: levoFLOXacin 500 MG TABLET PO (14:28)
[2025-03-05 14:36] VITALS: BP 139/78; PULSE 80; RESP 18; TEMP 36.6; O2SAT 99
== END 2025-03-05 14:37 | disposition home or self-care (01) ==
PROVIDERS: Emergency Provider Emergency Medicine; PCP Family Medicine
DX: S91.332A Puncture wound without foreign body, left foot, initial encounter (principal); W26.8XXA Contact with other sharp object(s), not elsewhere classified, initial encounter; Y93.89 Activity, other specified; Y92.89 Other specified places as the place of occurrence of the external cause; Y99.0 Civilian activity done for income or pay; Z23 Encounter for immunization
CPT/HCPCS: 73630; 90471; 90715; 99284

== ENCOUNTER → 2025-03-05 12:41 | Outpatient (BNV) | payer OTHER, SELFPAY | PROVIDERS: Emergency Provider Emergency Medicine; PCP Family Medicine; Visit Provider Radiology Diagnostic Radiology | DX: S91.332A Puncture wound without foreign body, left foot, initial encounter (principal); Z04.2 Encounter for examination and observation following work accident | CPT/HCPCS: 73630 ==

== ENCOUNTER 2025-05-24 10:10 | Emergency (ER) | payer SELFPAY ==
--- NOTE | ~2025-05-24 | XR_ITS ---
CLINICAL HISTORY: pain 3 views lumbar spine Comparison: None provided Findings: Normal alignment. Lumbar vertebral body heights are preserved. No acute fractures or dislocation. Mild vertebral spondylosis. Intervertebral disc heights are preserved in the lumbar spine. IMPRESSION: No acute findings. This document has been electronically signed by: Jean Lim MD on 05/24/2025 12:36:25
[2025-05-24 10:28] VITALS: BMI 41.6
--- NOTE | 2025-05-24 10:39 | ED_ITS ---
HPI - Back Pain/Injury General Chief Complaint: Back Pain/Injury Stated Complaint: back pain Time Seen by Provider: 05/24/25 10:38 Source: patient Mode of arrival: ambulatory Limitations: no limitations History of Present Illness ED Provider: KATHERIN MCFARLANE PA-C HPI Narrative: 44 year old male with pmhx significant for nephrolithiasis requiring lithotripsy, s/p nephrectomy in 2021 secondary to HTN, migraines presents to the ED today for evaluation of lower back pain x 1 week. Pain is primarily to his left lower back, now radiating to the right. Pain is currently 8/10, exacerbated with movement. Admits to heavy lifting at work. He can not recall a specific moment where he lifted something heavy and felt back pain. Reports falling out of a beach chair 8 days ago however he is unsure if this is related to his pain. Denies head strike or LOC at that time. Not on anticoagulation. Denies fever, chills, urinary sx, abdominal pain, numbness/tingling/weakness of the LEs. Related Data Previous Rx's ?Medication ?Instructions ?Recorded naproxen 500 mg tablet 500 mg PO BID PRN pain #20 t abs 08/26/20 albuterol sulfate 90 mcg/actuation 1 inh inhalation QI D PRN shortness 03/23/22 aerosol inhaler of breath or wheezing #8.5 g marco antonio azithromycin 250 mg tablet See Rx Instructions PO .COM PLEX #6 03/23/22 tabs prednisone 20 mg tablet 40 mg (2 x 20 mg) PO DAILY r brittni 5 03/23/22 days #10 tabs amoxicillin 875 mg-potassium 1 tab PO BID 7 days #14 t abs 01/21/23 clavulanate 125 mg tablet ibuprofen 600 mg tablet 600 mg PO TID PRN pain #20 t abs 04/04/23 ibuprofen 600 mg tablet 600 mg PO Q6H PRN pain #30 t abs 04/03/24 diclofenac sodium 1 % topical gel 2 g topical QID #100 grams 10/26/24 (Arthritis Pain (diclofenac)) ciprofloxacin HCl 500 mg tablet 500 mg PO BID 2 days # 4 tabs 03/05/25 cyclobenzaprine 5 mg tablet 5 mg PO Q8H PRN muscle sha n #9 tabs 05/24/25 lidocaine 5 % topical patch 1 patch topical DAILY #15 ea 05/24/25 (Lidoderm) Allergies Allergy/AdvReac Type Severity Reaction Status Date / Time No Known Allergies Allergy Verified 05/24/25 10:28 Review of Systems 2 Review of Systems: Constitutional: No fever, chills, fatigue, night sweats, weight changes ENT/Mouth: No ear pain, hearing loss, nasal congestion, sinus pain, rhinorrhea, sore throat Eyes: No eye pain, swelling, redness, vision changes, discharge Cardio: No chest pain, palpitations, RAMIREZ, orthopnea, peripheral edema Pulm: No SOB, cough, sputum, wheezing, dyspnea, hemoptysis GI: No nausea, vomiting, hematemesis, abdominal pain, diarrhea, constipation, hematochezia, melena : No irregular bleeding, dysuria, frequency, urgency, hesitancy, hematuria, flank pain, urinary flow changes, urinary incontinence or retention MSK: No neck pain, joint pain, myalgias, +back pain Skin: No lesions, rashes Neuro: No weakness, numbness, paresthesias, LOC, dizziness, headache Psych: No anxiety/panic, depression, SI/HI, AH/VH All other systems reviewed and are negative. FORMERLY [facility], [facility] Past Medical History Attestation statement: The following information was validated with the patient. Source: old records reviewed and nursing notes reviewed Medical History Hernia Migraines HTN (hypertension) Social History Social History Alcohol intake: former Physical Exam 2 Vital Signs: Vital Signs: Last Vital Signs Temp 97.8 F 05/24/25 11:40 Pulse 78 05/24/25 11:40 Resp 18 05/24/25 11:40 BP 130/83 05/24/25 11:40 Pulse Ox 97 05/24/25 11:40 O2 Del Method Room Air 05/24/25 11:40 BMI result Body Mass Index 41.6 vital signs stable, afebrile General: Well appearing, in no acute distress. Skin: Warm, dry, intact. No rashes or lesions. Head: Normocephalic, atraumatic. EENT: Hearing is intact b/l. Conjunctiva clear. PERRLA. EOM intact. Moist mucous membranes.? Cardiac: Chest wall symmetric. RRR Lungs: Normal respiratory effort without accessory muscle use. CTA bilaterally Abdomen: Soft, non-tender, non-distended. No rebound tenderness or guarding. Positive BS x4. no CVAT. Back: No midline spinous tenderness or step-off deformity. There is left lumbar paraspinal muscle tenderness to palpation, no overlying skin changes/deformity, no fluctuance, warmth. Ext: Upper and lower extremities atraumatic, without tenderness, deformity, swelling or erythema. Full ROM throughout Neuro: AOx3. Normal speech. Strength 5/5 intact throughout. Sensation intact to light touch. NV intact distally. Ambulating with steady gait. Psych: Appropriate mood and affect. Responds appropriately to questions. Course Course Course Narrative: 1202 -- CBC without leukocytosis or left shift. Chemistry without acute electrolyte abnormality requiring intervention. no [place]. normal liver function. > xays and UA pending > medicated with tylenol and lido patch 1346 --on re-evaluation, patient reports improvement in pain with medication. Urinalysis without infection. No blood. X-ray lumbar spine without fracture. > workup unremarkable. Likely muscular in etiology. Will send patient home with lidocaine patches and muscle relaxer. Patient has remained stable throughout ED visit today. Discussed worrisome signs and symptoms and when to return to the ED. All questions answered at this time. Patient is agreeable with disposition and stable for discharge. Medications Administered Discontinued Medications Generic Name Dose Route Start Last Admin Trade Name Freq PRN Reason Stop Dose Admin Acetaminophen 975 mg 05/24/25 11:06 05/24/25 11:31 Acetaminophen 325 Mg Tablet PO 05/24/25 11:07 975 mg ONCE ONE Administration Lidocaine 1 patch 05/24/25 11:06 05/24/25 11:31 Lidocaine 4 % Patch Adh..Patch TRANSDERMA 05/24/25 11:07 1 patch ONCE ONE Administration Protocol Medical Decision Making Medical Decision Making MDM Narrative: 44 year old male with pmhx significant for nephrolithiasis requiring lithotripsy, s/p nephrectomy in 2021 secondary to HTN, migraines presents to the ED today for evaluation of lower back pain x 1 week. His vitals are stable, he is afebrile. He is well-appearing and in no acute distress. on exam, there is no midline spinous tenderness or step-off deformity. There is left lumbar paraspinal muscle tenderness to palpation, no overlying skin changes/deformity, no fluctuance, warmth. Neurovascularly intact distally. Sensation intact to light touch throughout, strength 5/5 intact throughout. Ambulating with steady gait. Differential diagnosis includes muscle spasm, MSK sprain/strain, sciatica, arthritis, fracture, disc herniation, radiculopathy. Lower suspicion for UTI, renal colic, nephrolithiasis, hydronephrosis. Unlikely cauda equina, Guillain- Paton, epidural abscess, cord compression. Plan for labs, UA, imaging, pain control and re-evaluation. Differential Diagnosis Differential Diagnoses: The differential diagnosis associated with the presentation includes As above Admission/Observation Not indicated Lab Data MDM Lab Attestation statement: I reviewed the patient's lab results. As above 05/24/25 11:26 05/24/25 11:26 Labs: Lab Results 05/24/25 05/24/25 Range/Units 11:26 13:19 WBC 9.2 (4.8-10.8) X10*3/uL RBC 4.97 (4.60-5.80) X10*6/uL Hgb 14.5 (14.0-18.0) g/dl Hct 40.9 L (42.0-52.0) % MCV 82.3 (80.0-98.0) fL MCH 29.2 (27.0-33.0) pg MCHC 35.5 (31.0-36.0) g/dl RDW 14.6 (11.0-16.0) % Plt Count 277 (160-400) X10*3/uL MPV 11.1 (9.4-12.4) fL Immature Gran % (Auto) 0.2 (0.0-0.4) % Neut % (Auto) 56.0 (45-73) % Lymph % (Auto) 34.2 (20-40) % [place] % (Auto) 7.3 (2-11) % Eos % (Auto) 1.5 (0-4) % Baso % (Auto) 0.8 (0-2) % Lymph # (Auto) 3.1 (1.2-4.9) X10*3/uL [place] # (Auto) 0.7 (0.1-1.2) X10*3/uL Eos # (Auto) 0.1 (0.0-0.4) X10*3/uL Baso # (Auto) 0.1 (0.0-0.2) X10*3/uL Abs Immat Gran (auto) 0.02 (0.00-0.03) X10*3/uL Absolute Neuts (auto) 5.2 (2.0-8.3) x10*3/uL Absolute Nucleated RBC 0.000 (0.0-0.012) X10*3/uL Nucleated RBC % (auto) 0.0 (0.0-0.2) /100WBC Sodium 137 (135-145) mmol/L Potassium 3.9 (3.3-5.1) mmol/L Chloride 104 (96-108) mmol/L Carbon Dioxide 26 (22-29) mmol/L Anion Gap 11 L (12-20) BUN 22 H (9-16) mg/dL Creatinine 1.37 (0.5-1.4) mg/dL Estim Creat Clear Calc 78.3 Estimated GFR 56 Random Glucose 102 (60-115) mg/dL Calcium 9.2 (8.4-10.2) mg/dL Magnesium 2.2 (1.6-2.6) mg/dL Total Bilirubin 0.5 (0.0-1.0) mg/dL AST 26 (5-37) U/L ALT 34 (0-40) U/L Alkaline Phosphatase 50 (39-117) U/L Total Protein 7.3 (6.5-8.0) g/dL Albumin 4.8 (3.5-5.0) g/dL Urine Color Yellow Urine Appearance Clear Urine pH 6.0 (5.0-9.0) Ur Specific [place] 1.020 (1.005-1.025) Urine Protein Trace (Neg-Trace) mg/dL Urine Glucose (UA) Negative (Negative) mg/dL Urine Ketones Trace (Negative) mg/dL Urine Blood Negative (Negative) Urine Nitrite Negative (Negative) Ur Leukocyte Esterase Negative (Negative) Independent Interpretation I performed an independent interpretation of an: Plain X-Ray Interpretation: X-ray lumbar spine without fracture Radiology Impression Discussion of test interpretation with radiology: I have reviewed the radiologist's reading. Radiologist Impression: Date of Service: 05/24/25 Procedure(s): XR lumbar spine 2-3V Accession Number(s): [id number] cc: Yue Mei DO; Katherin Mcfarlane~ CLINICAL HISTORY: pain 3 views lumbar spine Comparison: None provided Findings: Normal alignment. Lumbar vertebral body heights are preserved. No acute fractures or dislocation. Mild vertebral spondylosis. Intervertebral disc heights are preserved in the lumbar spine. IMPRESSION: No acute findings. This document has been electronically signed by: Jean Lim MD on 05/24/2025 12:36:25 External Record Review External record reviewed: Inpatient record Prescription Management I considered prescription management with: Pain Medication Social Determinants Patient?s care significantly limited by Social Determinants of Health including: Other Social Determinant of Health Critical Care Time Critical Care Time Critical Care Time: No Discharge Plan Discharge Clinical Impression: Lumbar back pain Patient Disposition: Home, Self-Care Instructions: Acute Low Back Pain (ED) Additional Instructions: You were evaluated in the Emergency Department today for your back pain.? Your evaluation did not show signs of medical conditions requiring emergent intervention at this time. Avoid bending, lifting, or twisting. Use ice several times per day for 20 minutes at a time for the next 48 hours and then change to heat. I recommend you take 600mg ibuprofen every 6 hours or Tylenol 650mg every 6 hours as needed for pain. If needed, you can alternate these medications so that you take one medication every 3 hours. For example, at noon take ibuprofen, then at 3pm take Tylenol, then at 6pm take ibuprofen. Flexeril is a muscle relaxer. Take this at night as it makes you drowsy. Do not drive, drink alcohol, or operate machinery while taking it. Lidoderm patches are numbing patches. Apply to painful areas. Please schedule an appointment for follow-up with your primary care provider this week for further evaluation of your symptoms. Return to the Emergency Department if you experience worsening back pain, difficulty walking, fevers, numbness, tingling, incontinence, or any other concerning symptoms. In the case of an emergency call 911. Prescriptions: New cyclobenzaprine 5 mg tablet 5 mg PO Q8H PRN (Reason: muscle pain) Qty: 9 0RF lidocaine [Lidoderm] 5 % adhesive patch,medicated 1 patch topical DAILY Qty: 15 0RF Rx Instructions: leave on most painful area for up to 12 hrs No Action naproxen 500 mg tablet 500 mg PO BID PRN (Reason: pain) Qty: 20 0RF amoxicillin-pot clavulanate 875-125 mg tablet 1 tab PO BID 7 Days Qty: 14 0RF azithromycin 250 mg tablet See Rx Instructions .ROUTE .COMPLEX Qty: 6 0RF Rx Instructions: take 500 mg today (day 1), then 250 mg for 4 days (days 2-5) prednisone 20 mg tablet 40 mg PO DAILY 5 Days Qty: 10 0RF albuterol sulfate 90 mcg/actuation HFA aerosol inhaler 1 inh inhalation QID PRN (Reason: shortness of breath or wheezing) Qty: 8.5 0RF ibuprofen 600 mg tablet 600 mg PO Q6H PRN (Reason: pain) Qty: 30 0RF diclofenac sodium [Arthritis Pain (diclofenac)] 1 % gel 2 g topical QID Qty: 100 0RF Rx Instructions: apply to single elbow, wrist or hand; for hand includes palm/fingers/back of hand ciprofloxacin HCl 500 mg tablet 500 mg PO BID 2 Days Qty: 4 0RF ibuprofen 600 mg tablet 600 mg PO TID PRN (Reason: pain) Qty: 20 0RF Referrals: Yue Mei DO [Primary Care Provider, Internal Medicine] Interventions: ED Discharge Assessment Last Done: 05/24/25 13:46 Discharge Date/Time: 05/24/25 13:46 Print Language: Thai
[2025-05-24 11:30] LABS: MANUAL DIFF FLAG NO
[2025-05-24 11:31] LABS: Hematocrit 40.9 % (42.0-52.0); Hemoglobin 14.5 g/dl (14.0-18.0); Imm Gran Abs Auto 0.02 X10*3/uL (0.00-0.03); Imm Gran Pct Auto 0.2 % (0.0-0.4); Lymphocytes Absolute Auto 3.1 X10*3/uL (1.2-4.9); Mean Corpuscular HGB Conc 35.5 g/dl (31.0-36.0); Mean Corpuscular Hemoglobin 29.2 pg (27.0-33.0); Mean Corpuscular Volume 82.3 fL (80.0-98.0); NRBC Abs Auto 0.000 X10*3/uL (0.0-0.012); NRBC Pct Auto 0.0 /100WBC (0.0-0.2); Platelet Count 277 X10*3/uL (160-400); Red Blood Count 4.97 X10*6/uL (4.60-5.80); White Blood Count 9.2 X10*3/uL (4.8-10.8)
[2025-05-24] MEDS: Lidocaine 4 % Patch ADH..PATCH 1 PATCH TRANSDERMA (11:31)
[2025-05-24 11:40] VITALS: BP 130/83; PULSE 78; RESP 18; TEMP 36.6; O2SAT 97
[2025-05-24 11:46] LABS: Alanine Aminotransferase 34 U/L (0-40); Albumin Level 4.8 g/dL (3.5-5.0); Alkaline Phosphatase 50 U/L (39-117); Anion Gap 11 (12-20); Aspartate Amino Transferase 26 U/L (5-37); Blood Urea Nitrogen 22 mg/dL (9-16); Calcium 9.2 mg/dL (8.4-10.2); Carbon Dioxide 26 mmol/L (22-29); Chloride 104 mmol/L (96-108); Creatinine Clr Calc Pharmacy 78.3; Estimated Glomerular Filt Rate 56; Magnesium 2.2 mg/dL (1.6-2.6); Potassium 3.9 mmol/L (3.3-5.1); Sodium 137 mmol/L (135-145); Total Protein 7.3 g/dL (6.5-8.0)
[2025-05-24 13:25] LABS: Appearance Urine Clear; Glucose Urine UA Negative (Negative); PH 6.0 (5.0-9.0); Specific Gravity - Urine 1.020 (1.005-1.025)
[2025-05-24 13:46] VITALS: BP 130/83; PULSE 78; RESP 18; TEMP 36.6; O2SAT 97
== END 2025-05-24 13:46 | disposition home or self-care (01) ==
PROVIDERS: Physician Assistant Medical; Emergency Provider Emergency Medicine; PCP Family Medicine
DX: M54.50 Low back pain, unspecified (principal); I10 Essential (primary) hypertension
CPT/HCPCS: 36415; 72100; 80053; 81003; 83735; 85025; 99283; 99284

== ENCOUNTER → 2025-05-24 11:05 | Outpatient (BNV) | payer SELFPAY | PROVIDERS: Emergency Provider Emergency Medicine; PCP Family Medicine; Visit Provider Radiology Diagnostic Radiology | DX: M54.50 Low back pain, unspecified (principal) | CPT/HCPCS: 72100 ==

== ENCOUNTER 2025-06-12 09:23 | Emergency (ER) | payer SELFPAY ==
[2025-06-12 09:36] VITALS: BP 136/84; PULSE 77; RESP 17; TEMP 36.2; O2SAT 98; BMI 42.7
[2025-06-12 10:00] VITALS: BP 141/101; PULSE 80; RESP 18; TEMP 36.7; O2SAT 99
--- NOTE | 2025-06-12 10:50 | ED_ITS ---
HPI - Animal Bite General Chief Complaint: Skin/Abscess/Foreign Body Stated Complaint: Bee stings Time Seen by Provider: 06/12/25 10:38 Source: patient, family and RN notes reviewed Mode of arrival: ambulatory Limitations: no limitations History of Present Illness ED Provider: Artemio Fregoso PA-C HPI narrative: 44-year-old male presents to the ER for evaluation after he was stung by multiple bees while at work. 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 He was stung multiple times on his bilateral hands, a few on his leg and trunk. He came to the ER right away for further evaluation. He has no history of bee sting allergies that he is aware of. He denies any shortness of breath, wheezing, sensation of throat swelling or closing, no diffuse hives or rashes. Denies any chest pain, abdominal pain, nausea, vomiting, headaches. Reports some stinging and burning at the sting sites. the event occurred around 08:00 this morning MD complaint: other ( Multiple bee stings) Onset (ago): hour(s) (3) Animal: other ( bee) Pain description: burning Severity scale (1-10): 3 Associated symptoms: none Related Data Previous Rx's ?Medication ?Instructions ?Recorded naproxen 500 mg tablet 500 mg PO BID PRN pain #20 t abs 08/26/20 albuterol sulfate 90 mcg/actuation 1 inh inhalation QI D PRN shortness 03/23/22 aerosol inhaler of breath or wheezing #8.5 g marco antonio azithromycin 250 mg tablet See Rx Instructions PO .COM PLEX #6 03/23/22 tabs prednisone 20 mg tablet 40 mg (2 x 20 mg) PO DAILY r brittni 5 03/23/22 days #10 tabs amoxicillin 875 mg-potassium 1 tab PO BID 7 days #14 t abs 01/21/23 clavulanate 125 mg tablet ibuprofen 600 mg tablet 600 mg PO TID PRN pain #20 t abs 04/04/23 ibuprofen 600 mg tablet 600 mg PO Q6H PRN pain #30 t abs 04/03/24 diclofenac sodium 1 % topical gel 2 g topical QID #100 grams 10/26/24 (Arthritis Pain (diclofenac)) ciprofloxacin HCl 500 mg tablet 500 mg PO BID 2 days # 4 tabs 03/05/25 cyclobenzaprine 5 mg tablet 5 mg PO Q8H PRN muscle sha n #9 tabs 05/24/25 lidocaine 5 % topical patch 1 patch topical DAILY #15 ea 05/24/25 (Lidoderm) Allergies Allergy/AdvReac Type Severity Reaction Status Date / Time No Known Allergies Allergy Verified 06/12/25 09:38 Review of Systems Review of Systems: Yes all other systems are reviewed and are negative [facility] Past Medical History Medical History Hernia Migraines HTN (hypertension) Social History Social History Alcohol intake: former Advance Directives: No Advance Directives Information Provided: Yes Do you have a plan to hurt others: No Plan Physical Exam ED Exam Exam: Appearance: Alert. Oriented X3. No acute distress. Head: normocephalic, atraumatic. Eyes: Pupils equal, round and reactive to light. ENT: Pharynx normal. No tonsillar swelling or exudate. no swelling of the lip or tongue. Voice is normal Neck: Normal inspection. Neck supple. CVS: Normal heart rate and rhythm. Pulses normal. Respiratory: No respiratory distress. Breath sounds normal. Abdomen: Obese, Soft and nontender. +BS x4 Skin: Skin warm and dry. Normal skin color. Normal skin turgor. No rashes. Extremities: No lower extremity edema. No joint swelling. Neuro/psych: Oriented X 3. grossly normal, nonfocal Normal speech and cognition. Vital Signs: Vital Signs - 24 hr 06/12/25 09:36 Temperature 97.2 F Pulse Rate 77 Respiratory Rate 17 Blood Pressure 136/84 Pulse Oximetry 98 Oxygen Delivery Method Room Air BMI result Body Mass Index 42.7 Medical Decision Making Medical Decision Making MDM Narrative: 44-year-old male presents to the ER for evaluation after he was stung by multiple bees while at work around 08:00 today. On examination he has some small red areas where he was stung without any evidence of localized cellulitis, no significant inflammation or hives. no evidence of anaphylaxis or severe allergic reaction at this point. The event was several hours ago and he seems to be doing very well. Given he was stung by multiple bees will give a dose of Benadryl to help with any histamine related inflammation. He was encouraged to continue Benadryl as needed for localized inflammation/burning/itching at home. At this time comfortable discharge home Differential Diagnosis Differential Diagnoses: The differential diagnosis associated with the presentation includes anaphylaxis, localized histamine reaction, generalized allergic reaction, bee stings Admission/Observation Consideration of admission/observation: Escalation of care including admission/observation considered External Record Review External record reviewed: Prior outpatient labs Prescription Management I considered prescription management with: Other ( steroids, Benadryl) Critical Care Time Critical Care Time Critical Care Time: No Discharge Plan Discharge Clinical Impression: Bee sting Qualifiers: Encounter type: initial encounter Injury intent: accidental or unintentional Qualified Code(s): T63.441A - Toxic effect of venom of bees, accidental (unintentional), initial encounter Patient Disposition: Home, Self-Care Instructions: Insect Bite or Sting (ED) Additional Instructions: Use cool compresses to the stings as needed for pain and swelling. You can take oral Benadryl as needed for itching and pain as well. You can also try topical Benadryl cream or ointment to help with pain and swelling. If you develop shortness of breath, diffuse hives all over her body, throat swelling, shortness of breath, lip or tongue swelling, wheezing call 911 or come back to the ER for further evaluation. Prescriptions: No Action naproxen 500 mg tablet 500 mg PO BID PRN (Reason: pain) Qty: 20 0RF amoxicillin-pot clavulanate 875-125 mg tablet 1 tab PO BID 7 Days Qty: 14 0RF azithromycin 250 mg tablet See Rx Instructions .ROUTE .COMPLEX Qty: 6 0RF Rx Instructions: take 500 mg today (day 1), then 250 mg for 4 days (days 2-5) prednisone 20 mg tablet 40 mg PO DAILY 5 Days Qty: 10 0RF albuterol sulfate 90 mcg/actuation HFA aerosol inhaler 1 inh inhalation QID PRN (Reason: shortness of breath or wheezing) Qty: 8.5 0RF ibuprofen 600 mg tablet 600 mg PO Q6H PRN (Reason: pain) Qty: 30 0RF diclofenac sodium [Arthritis Pain (diclofenac)] 1 % gel 2 g topical QID Qty: 100 0RF Rx Instructions: apply to single elbow, wrist or hand; for hand includes palm/fingers/back of hand ciprofloxacin HCl 500 mg tablet 500 mg PO BID 2 Days Qty: 4 0RF cyclobenzaprine 5 mg tablet 5 mg PO Q8H PRN (Reason: muscle pain) Qty: 9 0RF lidocaine [Lidoderm] 5 % adhesive patch,medicated 1 patch topical DAILY Qty: 15 0RF Rx Instructions: leave on most painful area for up to 12 hrs ibuprofen 600 mg tablet 600 mg PO TID PRN (Reason: pain) Qty: 20 0RF Stand Alone Forms: Work/School Release Print Language: Wallisian
--- OUTSIDE RECORDS SUMMARY | 2025-06-12 10:54 | XMS_ITS | Encounter Summary ---
Author Organization [employer] Address [address] [facility] [address] [place] [address] Care Team Providers Care Tenon Machine Operator Name Role Phone Yue Mei DO Primary Care Provider + [phone] Reason for Visit * Reason Comments Med Refill Encounter Details Date Type Department Care Team ([facility] st Contact Info) Description 03/13/[address] [facility] [address] [place], [place] [phone] Yue Mei DO [address] [place], [place] [phone] Social History Tobacco Use Types Packs/Day Years [...] on filedocumented in this encounter Care Teams Tenon Machine Operator Relationship Specialty Start Date End Date Yue Mei DO [address] [place] [id number] PCP - General Family Medicine 06/03/15 documented as of this encounter
--- OUTSIDE RECORDS SUMMARY | 2025-06-12 10:54 | XMS_ITS | Clinical Summary ---
Author Organization [employer] [facility] ity Address [address] [place] [address] Care Team Providers Care Fuel Conversion Technician Name Role Phone Unavailable Primary Care Provider [...] 1997 COVID-19 Vaccine (2023-2 5 season) 2024 Depression Screening 11/13/2024 Influenza Vaccine (#1) 2025 HIB Vaccines Aged Out No longer [...] 5 Years) and At-Risk Patients (6 to 49 Years) Aged Out No longer eligible b ased on patient's age to complete this topic RSV Immunization Patients Un ange 20 months Aged Out No longer eligible b ased on patient's age to complete this topic Varicella Vaccines Aged Out No longer eligible based on patient's age to complete this topic
[2025-06-12 11:12] VITALS: BP 141/101; PULSE 80; RESP 18; TEMP 36.7; O2SAT 99
== END 2025-06-12 11:13 | disposition home or self-care (01) ==
PROVIDERS: Emergency Provider Emergency Medicine Emergency Medical Services; PCP Family Medicine
DX: T63.441A Toxic effect of venom of bees, accidental (unintentional), initial encounter (principal); Y92.9 Unspecified place or not applicable
CPT/HCPCS: 99283

== ENCOUNTER 2025-07-30 10:27 | Emergency (ER) | payer SELFPAY ==
--- NOTE | ~2025-07-30 | CT_ITS ---
EXAMINATION: CT ABDOMEN AND PELVIS WITH CONTRAST CLINICAL INFORMATION: abd. pain, diarrhea, R/ O colitis; COMPARISON: None available. TECHNIQUE: Multidetector volumetric images were obtained from the superior aspect of the liver through the pubic symphysis following administration 85 mL of Omnipaque 350 intravenous contrast. Sagittal and coronal reformatted images were obtained on the technologist's workstation. Oral contrast: No This CT examination was performed using dose optimization techniques as appropriate, variously including the following: *Automated exposure control *Adjustment of mA and/or kV according to patient size (this includes techniques or standardized protocols for targeted exams where dose is matched to indication/reason for exam; i.e. extremities or head) *Use of iterative reconstruction technique DLP: 807 mGy*cm FINDINGS: LUNG BASES: Clear LIVER, GALLBLADDER, AND BILIARY TREE: There is decreased attenuation of the liver with focal sparing in the posterior inferior left lateral segment The gallbladder contains a small focal punctate area of height density in the dependent portion of the gallbladder. PANCREAS: Unremarkable. SPLEEN: Unremarkable. ADRENAL GLANDS: Unremarkable. KIDNEYS AND URETERS: Left nephrectomy has been performed. The remaining distal left ureter is mildly dilated. The right kidney is unremarkable. BLADDER: There is thickening along the posterior wall of the bladder measuring up to 1 cm in thickness and up to 4 cm wide with an undulating appearance GASTROINTESTINAL TRACT: There are a few scattered pseudodiverticula in the colon. There is no gross wall thickening or fat stranding. The appendix is within normal limits. ABDOMINAL WALL: Small right inguinal hernia contains fat and tents the adjacent adjacent bladder. LYMPH NODES: Normal. VASCULAR: Unremarkable. PELVIC VISCERA: Unremarkable. 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 There is a vague area of sclerosis in the right upper sacrum measuring 2.[address]/CT abdomen pelvis w IV con IMPRESSION: Irregular plaque-like thickening involving posterior wall of the bladder 4 cm wide 1 cm thick raises question of transitional cell carcinoma. This area should be amenable to cystoscopy. There is a vague sclerotic area in the right upper sacrum measuring 2.1 x 3.2 cm. While this may be mechanical in nature, a sclerotic metastasis cannot be ruled out. Left nephrectomy. Hepatic steatosis. Gallstones versus polyp. Fleischner guidelines were followed. Electronically signed by: Alf Amaro MD 07/30/2025 01:44 PM EDT RP
[2025-07-30 10:40] VITALS: BP 153/106; PULSE 73; RESP 16; TEMP 36.4; O2SAT 96; BMI 42.0
[2025-07-30 10:46] VITALS: BP 142/87; PULSE 60; RESP 16; TEMP 36.5; O2SAT 99
--- NOTE | 2025-07-30 10:47 | ECG_ITS ---
Test Reason : ABD PAIN Blood Pressure : */* mmHG Vent. Rate : 84 BPM Atrial Rate : 84 BPM P-R Int : 158 ms QRS Dur : 86 ms QT Int : 350 ms P-R-T Axes : 8 -19 5 degrees QTcB Int : 413 ms Normal sinus rhythm Moderate voltage criteria for LVH, may be normal variant ( R in aVL , Gary product ) Borderline ECG When compared with ECG of 19-Nov-2024 08:17, QT has shortened Referred By: Kalia Jay Electronically Signed By: HAILY RIVERO
--- NOTE | 2025-07-30 10:49 | ED_ITS ---
HPI - General Adult General Chief complaint: Abdominal Pain Stated complaint: stomach issues Time Seen by Provider: 07/30/25 11:41 Source: patient and it service delivery manager Mode of arrival: ambulatory Limitations: no limitations History of Present Illness ED Provider: DR. Sorenson HPI narrative: 44-year-old male with PMHx HTN, migraines presented for evaluation of diffuse abdominal pain and diarrhea followed eating pork chops symptoms started since yesterday is diffuse cramps and nonbloody watery diarrhea with no nausea, no vomiting and symptoms persist today, no other sick contacts, no recent travel, no recent use of antibiotic. Patient stated that he takes a natural drink that he by from [place] every morning to help lose appetite and lose weight. intra-abdominal surgical history significant for left nephrectomy, + passing gas flatus. Related Data Previous Rx's ?Medication ?Instructions ?Recorded naproxen 500 mg tablet 500 mg PO BID PRN pain #20 t abs 08/26/20 albuterol sulfate 90 mcg/actuation 1 inh inhalation QI D PRN shortness 03/23/22 aerosol inhaler of breath or wheezing #8.5 g marco antonio azithromycin 250 mg tablet See Rx Instructions PO .COM PLEX #6 03/23/22 tabs prednisone 20 mg tablet 40 mg (2 x 20 mg) PO DAILY r brittni 5 03/23/22 days #10 tabs amoxicillin 875 mg-potassium 1 tab PO BID 7 days #14 t abs 01/21/23 clavulanate 125 mg tablet ibuprofen 600 mg tablet 600 mg PO TID PRN pain #20 t abs 04/04/23 ibuprofen 600 mg tablet 600 mg PO Q6H PRN pain #30 t abs 04/03/24 diclofenac sodium 1 % topical gel 2 g topical QID #100 grams 10/26/24 (Arthritis Pain (diclofenac)) ciprofloxacin HCl 500 mg tablet 500 mg PO BID 2 days # 4 tabs 03/05/25 cyclobenzaprine 5 mg tablet 5 mg PO Q8H PRN muscle sha n #9 tabs 05/24/25 lidocaine 5 % topical patch 1 patch topical DAILY #15 ea 05/24/25 (Lidoderm) Allergies Allergy/AdvReac Type Severity Reaction Status Date / Time No Known Allergies Allergy Verified 07/30/25 10:43 Review of Systems 2 Review of Systems: all other systems are reviewed and are negative Constitutional: Reports as per HPI and Reports no additional constitutional complaints Eyes: Reports as per HPI and Reports no additional eye complaints Reports system reviewed and no additional complaints, except as documented Cardiovascular: Reports as per HPI and Reports no additional cardiovascular complaints Respiratory: Reports as per HPI and Reports no additional respiratory complaints Gastrointestinal: Reports as per HPI and Reports no additional gastrointestinal complaints Genitourinary: Reports no additional female genitourinary complaints Musculoskeletal: Reports no additional musculoskeletal complaints Skin/Breast: Reports system reviewed and no additional complaints, except as docu Psychiatric: Reports no additional psychiatric complaints Endocrine: Reports no additional endocrine complaints Hematologic/Lymphatic: Reports no additional hematologic/lymphatic complaints Allergic/Immunologic: Reports no additional allergic/immunologic complaints Reports system reviewed and no additional complaints, except as documented and Reports Abnormal speech present [facility] Past Medical History Medical History Hernia Migraines HTN (hypertension) Social History Social History Alcohol intake: former Advance Directives: No Advance Directives Information Provided: Yes Physical Exam ED Vital Signs: Vital Signs - 24 hr 07/30/25 10:40 07/30/25 10:46 07/30/25 11:53 Temperature 97.6 F 97.7 F 98.1 F Pulse Rate 73 60 73 Respiratory Rate 16 16 12 Blood Pressure 153/106 H 142/87 H 140/101 H Pulse Oximetry 96 99 96 Oxygen Delivery Method Room Air Room Air Room Air 07/30/25 14:23 Temperature 98.1 F Pulse Rate 73 Respiratory Rate 12 Blood Pressure 140/101 H Pulse Oximetry 96 Oxygen Delivery Method Room Air BMI result Body Mass Index 42.0 Vital signs have been reviewed and appear to be correct. Blood pressure elevated. Heart rate normal. Respiratory rate normal. Temperature normal. Oxygen saturation normal. Appearance: Alert. Oriented X3. No acute distress. Head: Normal external exam. Normocephalic. Atraumatic. No Geiger signs noted. No raccoon eyes noted Eyes: PERRLA. EOMI. Conjunctiva and sclera normal. Eyelids normal. ENT: TM's Normal. Pharynx normal. Uvula midline. Moist mucous membranes. No trismus noted. No drooling noted. No muffled voice noted. Neck: Normal inspection. Neck supple. FROM. No adenopathy. Thyroid Normal. No meningeal signs. No neck mass noted. CVS: Normal heart rate and rhythm. Heart sound normal. No murmurs noted. Pulses normal throughout. Respiratory: No respiratory distress. Painless inspiration. Breath sounds normal. No wheezes/rales/rhonchi noted. Chest nontender. No accessory muscle usage noted or decreased air movement noted. Abdomen: Soft, mild epigastric tenderness, no rebound tenderness, no guarding,Bowel sounds normal in all 4 quadrants. No distention noted. No organomegaly noted. No visible injury noted. Back: No CVA tenderness. Full range of motion noted. Skin: Skin warm and dry. Normal skin color. Normal skin turgor. No rashes/lesions/lacerations noted. Extremities: No lower extremity edema. Extremities exhibit normal range of motion. Extremities nontender. Neuro: Oriented X 3. Cranial nerve exam: II-XII are grossly intact No motor deficit. No sensory deficit. Reflexes normal. Course Course Course Narrative: RME: 44-year-old male presents to ED for epigastric not generalized abdominal pain with multiple bouts of diarrhea after ED some pork. Patient denies any blood in stool. Labs EKG ordered Reevaluation(s) Reevaluation #1: CT abdomen pelvis shows no GI abnormality however revealed a mass in the urinary bladder with a concern or transitional cell carcinoma, using it service delivery manager service I explained to the patient the importance of contacting our urologist Dr. Savage for further evaluation of the bladder mass. Patient and his spouse fully understood my instruction and the important to timely fashion arrange an appointment with Dr. Savage. Drink plenty of fluids to keep up with the diarrhea until it resolved. Time: 13:55 Medications Administered Discontinued Medications Generic Name Dose Route Start Last Admin Trade Name Freq PRN Reason Stop Dose Admin Al Hydroxide/Mg Hydroxide 30 ml 07/30/25 11:48 07/30/25 12:04 Magnesium Hydrox/Alum Hydrox 30 Ml Oral.Susp PO 07/30/25 11:49 30 ml ONCE ONE Administration Famotidine 20 mg 07/30/25 11:48 07/30/25 12:04 Famotidine/Pf 20 Mg/2 Ml Vial IVPUSH 07/30/25 11:49 20 mg ONCE ONE Administration Iohexol 100 ml 07/30/25 13:26 07/30/25 13:27 Iohexol 350 Mg/Ml 100 Ml Infus..Btl IV 07/30/25 13:27 85 ml ONCE ONE Administration Loperamide HCl 2 mg 07/30/25 11:48 07/30/25 12:04 Loperamide Hcl 2 Mg Capsule PO 07/30/25 11:49 2 mg ONCE ONE Administration Medical Decision Making Differential Diagnosis Differential Diagnoses: The differential diagnosis associated with the presentation includes ( Gastroenteritis, gastritis, food poisoning, dehydration, acute appendicitis, colitis, diverticulitis, electrolyte derangement, severe anemia.) Admission/Observation Consideration of admission/observation: Escalation of care including admission/observation considered Lab Data MDM Lab Attestation statement: I reviewed the patient's lab results. 07/30/25 10:57 07/30/25 10:57 Labs: Lab Results 07/30/25 07/30/25 Range/Units 10:57 13:46 WBC 10.8 (4.8-10.8) X10*3/uL RBC 5.13 (4.60-5.80) X10*6/uL Hgb 14.9 (14.0-18.0) g/dl Hct 42.0 (42.0-52.0) % MCV 81.9 (80.0-98.0) fL MCH 29.0 (27.0-33.0) pg MCHC 35.5 (31.0-36.0) g/dl RDW 14.2 (11.0-16.0) % Plt Count 304 (160-400) X10*3/uL MPV 11.7 (9.4-12.4) fL Immature Gran % (Auto) 0.2 (0.0-0.4) % Neut % (Auto) 64.2 (45-73) % Lymph % (Auto) 27.7 (20-40) % [place] % (Auto) 5.4 (2-11) % Eos % (Auto) 1.8 (0-4) % Baso % (Auto) 0.7 (0-2) % Lymph # (Auto) 3.0 (1.2-4.9) X10*3/uL [place] # (Auto) 0.6 (0.1-1.2) X10*3/uL Eos # (Auto) 0.2 (0.0-0.4) X10*3/uL Baso # (Auto) 0.1 (0.0-0.2) X10*3/uL Abs Immat Gran (auto) 0.02 (0.00-0.03) X10*3/uL Absolute Neuts (auto) 6.9 (2.0-8.3) x10*3/uL Absolute Nucleated RBC 0.000 (0.0-0.012) X10*3/uL Nucleated RBC % (auto) 0.0 (0.0-0.2) /100WBC PT 12.3 (10.9-12.4) SEC INR 1.1 (0.9-1.1) APTT 37.0 H (26.7-34.1) SEC Sodium 140 (135-145) mmol/L Potassium 3.7 (3.3-5.1) mmol/L Chloride 108 (96-108) mmol/L Carbon Dioxide 25 (22-29) mmol/L Anion Gap 11 L (12-20) BUN 19 H (9-16) mg/dL Creatinine 1.30 (0.5-1.4) mg/dL Estim Creat Clear Calc 80.3 Estimated GFR 59 Random Glucose 105 (60-115) mg/dL Calcium 9.4 (8.4-10.2) mg/dL Total Bilirubin 0.5 (0.0-1.0) mg/dL AST 30 (5-37) U/L ALT 33 (0-40) U/L Alkaline Phosphatase 57 (39-117) U/L Troponin I High Sens < 2.7 (<3.5-35.0) ng/L Total Protein 7.6 (6.5-8.0) g/dL Albumin 4.9 (3.5-5.0) g/dL Lipase 24 (8-78) U/L Urine Color Yellow Urine Appearance Clear Urine pH 6.5 (5.0-9.0) Ur Specific [place] >= 1.030 H (1.005-1.025) Urine Protein Negative (Neg-Trace) mg/dL Urine Glucose (UA) Negative (Negative) mg/dL Urine Ketones Negative (Negative) mg/dL Urine Blood Negative (Negative) Urine Nitrite Negative (Negative) Ur Leukocyte Esterase Negative (Negative) Independent Interpretation I performed an independent interpretation of an: CT Scan ( Abdomen pelvis:Irregular plaque-like thickening involving posterior wall of the bladder 4 cm wide 1 cm thick raises question of transitional cell carcinoma. This area should be amenable to cystoscopy. There is a vague sclerotic area in the right upper sacrum measuring 2.1 x 3.2 cm. While this) Radiology Impression Discussion of test interpretation with radiology: I have reviewed the radiologist's reading. Discharge Plan Discharge Clinical Impression: Mass of urinary bladder, Diarrhea Patient Disposition: Home, Self-Care Instructions: Abdominal Pain (ED), Bladder Biopsy (DC) Prescriptions: No Action naproxen 500 mg tablet 500 mg PO BID PRN (Reason: pain) Qty: 20 0RF amoxicillin-pot clavulanate 875-125 mg tablet 1 tab PO BID 7 Days Qty: 14 0RF azithromycin 250 mg tablet See Rx Instructions .ROUTE .COMPLEX Qty: 6 0RF Rx Instructions: take 500 mg today (day 1), then 250 mg for 4 days (days 2-5) prednisone 20 mg tablet 40 mg PO DAILY 5 Days Qty: 10 0RF albuterol sulfate 90 mcg/actuation HFA aerosol inhaler 1 inh inhalation QID PRN (Reason: shortness of breath or wheezing) Qty: 8.5 0RF ibuprofen 600 mg tablet 600 mg PO Q6H PRN (Reason: pain) Qty: 30 0RF diclofenac sodium [Arthritis Pain (diclofenac)] 1 % gel 2 g topical QID Qty: 100 0RF Rx Instructions: apply to single elbow, wrist or hand; for hand includes palm/fingers/back of hand ciprofloxacin HCl 500 mg tablet 500 mg PO BID 2 Days Qty: 4 0RF cyclobenzaprine 5 mg tablet 5 mg PO Q8H PRN (Reason: muscle pain) Qty: 9 0RF lidocaine [Lidoderm] 5 % adhesive patch,medicated 1 patch topical DAILY Qty: 15 0RF Rx Instructions: leave on most painful area for up to 12 hrs ibuprofen 600 mg tablet 600 mg PO TID PRN (Reason: pain) Qty: 20 0RF Referrals: Smith Savage MD [Physician, Urology] Yue Mei DO [Primary Care Provider, Internal Medicine] Stand Alone Forms: Work/School Release Interventions: ED Discharge Assessment Last Done: 07/30/25 14:23 Discharge Date/Time: 07/30/25 14:23 Print Language: Bruneian
[2025-07-30 11:03] LABS: MANUAL DIFF FLAG NO
[2025-07-30 11:04] LABS: Hematocrit 42.0 % (42.0-52.0); Hemoglobin 14.9 g/dl (14.0-18.0); Imm Gran Abs Auto 0.02 X10*3/uL (0.00-0.03); Imm Gran Pct Auto 0.2 % (0.0-0.4); Lymphocytes Absolute Auto 3.0 X10*3/uL (1.2-4.9); Mean Corpuscular HGB Conc 35.5 g/dl (31.0-36.0); Mean Corpuscular Hemoglobin 29.0 pg (27.0-33.0); Mean Corpuscular Volume 81.9 fL (80.0-98.0); NRBC Abs Auto 0.000 X10*3/uL (0.0-0.012); NRBC Pct Auto 0.0 /100WBC (0.0-0.2); Platelet Count 304 X10*3/uL (160-400); Red Blood Count 5.13 X10*6/uL (4.60-5.80); White Blood Count 10.8 X10*3/uL (4.8-10.8)
[2025-07-30 11:09] LABS: INTERNATIONAL NORM RATIO 1.1 (0.9-1.1); Prothrombin Time 12.3 SEC (10.9-12.4)
[2025-07-30 11:12] LABS: Partial Thromboplastin Time 37.0 SEC (26.7-34.1)
[2025-07-30 11:21] LABS: Alanine Aminotransferase 33 U/L (0-40); Albumin Level 4.9 g/dL (3.5-5.0); Alkaline Phosphatase 57 U/L (39-117); Anion Gap 11 (12-20); Aspartate Amino Transferase 30 U/L (5-37); Blood Urea Nitrogen 19 mg/dL (9-16); Calcium 9.4 mg/dL (8.4-10.2); Carbon Dioxide 25 mmol/L (22-29); Chloride 108 mmol/L (96-108); Creatinine Clr Calc Pharmacy 80.3; Estimated Glomerular Filt Rate 59; Lipase 24 U/L (8-78); Potassium 3.7 mmol/L (3.3-5.1); Sodium 140 mmol/L (135-145); Total Protein 7.6 g/dL (6.5-8.0)
[2025-07-30 11:30] LABS: Troponin-I High Sensitivity < 2.7 ng/L (<3.5-35.0)
[2025-07-30 11:53] VITALS: BP 140/101; PULSE 73; RESP 12; TEMP 36.7; O2SAT 96
[2025-07-30] MEDS: Magnesium Hydrox/Alum Hydrox 30 ML ORAL.SUSP PO (12:04)
[2025-07-30] MEDS: iohexoL 350 MG/ML 100 ML INFUS..BTL IV (13:27)
[2025-07-30 13:56] LABS: Appearance Urine Clear; Glucose Urine UA Negative (Negative); PH 6.5 (5.0-9.0); Specific Gravity - Urine >= 1.030 (1.005-1.025)
[2025-07-30 14:23] VITALS: BP 140/101; PULSE 73; RESP 12; TEMP 36.7; O2SAT 96
--- OUTSIDE RECORDS SUMMARY | 2025-07-30 15:54 | XMS_ITS | Encounter Summary ---
Author Organization [employer] Address [address] [facility] [address] [place] [address] Care Team Providers Care Joint Terminal Attack Controller Name Role Phone Yue Mei DO Primary Care Provider + [phone] Encounter Details Date Type Department Care Team (Late st Contact Info) Description 10/09/2023 Orders Only [facility] [address] [place] [address] Lexus Cao LPN Social History Tobacco Use [...] (NOBLES) (07/08/2024 10:36 AM EDT) IDNOW SERIAL# [id number] [facility] COVID-19 TEST Negative Negative [facility] COVID-19 NOTE See Note [facility] Comment: Results are for the identification of SARS-CoV2 RNA. TheSARS-CoV2 RNA is generally detectable in respiratory samplesduring the acute phase of infection. Positive results areindicative of the presence of SARS-CoV-2 RNA; clinicalcorrelation with patient history and other diagnosticinformation is necessary to determine patient infectionstatus. Positive results do not rule out bacterial infectionor co- infection with other viruses.Testing facilities within the [facility] and [facility] are required to report all positive results [...] LAB MOLECULAR ROBB GNOSTICS ORDERABLES Final Result [facility] [address] [place] [phone] documented in this encounter Visit Diagnoses Not on filedocumented in this encounter Care Teams Joint Terminal Attack Controller Relationship Specialty Start Date End Date Yue Mei DO [address] [place] [phone] PCP - General Family Medicine 06/03/15 documented as of this encounter
--- OUTSIDE RECORDS SUMMARY | 2025-07-30 15:54 | XMS_ITS | Encounter Summary ---
Author Organization [employer] Address [address] [facility] [address] [place] [address] Care Team Providers Care Capture Manager Name Role Phone Yue Mei DO Primary Care Provider [phone] Reason for Visit * Reason Onset Date Comments ER Follow-up 07/30/2025 Encounter Details Date Type Department Care Team ([facility] st Contact Info) Description 07/30/2025 Telephone [facility] [address] [place] [address] Yue Mei DO [address] [place], [place] [phone] ER Follow-up Social History Tobacco Use Types Packs/Day Years Used Date Smoking Tobacco: Never Smokeless Tobacco: Never Alcohol Use Standard Drinks/Week Comments Never 0 (1 standard drink = 0.6 oz pur e alcohol) Housing Stability Answer Date Recorded What is your housing situation today? I have libbyisrrael loyola 09/15/[address] you [...] the past 12 months, has t he [employer] Private, oil or water company threatened to shut [...] on filedocumented in this encounter Care Teams Capture Manager Relationship Specialty Start Date End Date Yue Mei DO [address] [place] [phone] PCP - General Family Medicine 06/03/15 documented as of this encounter
--- OUTSIDE RECORDS SUMMARY | 2025-07-30 15:54 | XMS_ITS | Encounter Summary ---
Author Organization [employer] Address [address] [place] [address] Care Team Providers Care Heat Treat Inspector Name Role Phone Yue Mei DO Primary Care Provider Encounter Details Date Type Department Care Team (Late st Contact Info) Description 11/15/2022 Orders Only [facility] & PEDS [address] [place] [address] Yue Ham LPN Social History Tobacco Use [...] on filedocumented in this encounter Care Teams Heat Treat Inspector Relationship Specialty Start Date End Date Yue Mei DO [address] [place] [address] PCP - General Family Medicine 06/03/15 documented as of this encounter
--- OUTSIDE RECORDS SUMMARY | 2025-07-30 15:54 | XMS_ITS | Encounter Summary ---
Author Organization [email or web address] Address [address] [place] [address] Care Team Providers Care Wellness Program Administrator Name Role Phone Yue Mei DO Primary Care Provider Encounter Details Date Type Department Care Team (Late st Contact Info) Description 01/30/2023 Orders Only [facility] [address] [place] [address] Yue Ham LPN Social History Tobacco Use [...] on filedocumented in this encounter Care Teams Wellness Program Administrator Relationship Specialty Start Date End Date Yue Mei DO [address] [place] [id number] PCP - General Family Medicine 06/03/15 documented as of this encounter
--- OUTSIDE RECORDS SUMMARY | 2025-07-30 15:54 | XMS_ITS | Encounter Summary ---
Author Organization [employer] Address [address] [facility] [address] [place] [address] Care Team Providers Care Distribution Tech Name Role Phone Yue Mei DO Primary Care Provider + [phone] Reason for Visit * Reason Comments Med Refill Encounter Details Date Type Department Care Team ([facility] st Contact Info) Description 03/13/2024 Refill [facility] MEDICINE [address] [place], [place] [phone] Yue Mei DO [address] [place], [place] [phone] Social History Tobacco Use Types Packs/Day Years [...] on filedocumented in this encounter Care Teams Distribution Tech Relationship Specialty Start Date End Date Yue Mei DO [address] [place] [id number] PCP - General Family Medicine 06/03/15 documented as of this encounter
--- OUTSIDE RECORDS SUMMARY | 2025-07-30 15:54 | XMS_ITS | Clinical Summary ---
Author Organization [employer] Address [address] [facility] [address] [place] [address] Care Team Providers Care Fight Manager Name Role Phone Yue Mei DO Primary Care Provider [phone] Allergies No known active allergies Medications fluticasone (Flonase Allergy Relief) 50 MCG/ACT nasal sprayIndications :Nasal congestion Administer 1 spray into each nostril in the morning. Shake gently. Before first use, prime pump. After use, clean tip and replace cap. 16 g 12 3 Active Diclofenac Sodium 1 % gel Apply 2 g topically if needed in the morning and at bedtime (pain). 150 g 3 3 Active acetaminophen (Tylenol) 500 MG tablet Take 2 tablets (1,000 mg) by mouth every 6 (six) hours if needed for moderate pain or fever for up to 25 doses. 50 tablet 4 Active famotidine (Pepcid) 20 MG tablet TAKE 1 TABLET BY MOUTH TWICE DAILY 180 tablet 1 5 Active D3 Super Strength 50 MCG (1999 UT) capsule TAKE 1 CAPSULE BY MOUTH EVERY MORNING 90 capsule 3 5 Active omeprazole (PriLOSEC) [address] capsule TAKE 1 CAPSULE BY MOUTH EVERY MORNING 90 capsule 1 5 Active losartan (Cozaar) 100 MG tabletIndication s:Hypertension, unspecified type TAKE 1 TABLET BY MOUTH EVERY MORNING 90 tablet 1 5 Active hydrALAZINE (Apresoline) 50 MG tabletIndication s:Hypertension, unspecified type TAKE 1 TABLET BY MOUTH TWICE DAILY IN THE MORNING AND IN THE EVENING WITH FOOD 180 tablet 1 5 Active amLODIPine (Norvasc) 10 MG tablet TAKE 1 TABLET BY MOUTH EVERY MORNING 90 tablet 5 Active amLODIPine (Norvasc) 10 MG tablet Take 1 tablet (10 mg) by mouth Once per day. 90 tablet 3 5 02/14/20 26 Active hydroCHLOROthiaz dar (HYDRODiuril) 25 MG tablet TAKE 1 TABLET BY MOUTH EVERY MORNING 90 tablet 5 Active Hospital, Clinic, or Other Facility Administered Medication [...] Encounters Date Type Department Care Team Description 07/30/2025 Telephone [facility] [address] [place] [address] Yue Mei DO ER Follow-up 07/30/2025 Orders Only GENERIC EXTERNAL DATA DEPARTMENT Provider, Generic External Data 05/24/2025 Orders Only GENERIC EXTERNAL DATA DEPARTMENT Provider, Generic External Data 04/29/2025 Refill [facility] [address] [place] [address] Yue Mei DO from Last 3 Months Immunizations Immunization Administration Dates Next Due HPV, Bivalent 11/16/2009 [...] Sign Reading Time Taken Comments Blood Pressure 130/87 04/10/2025 8:49 AM EDT Pulse 94 04/10/2025 8:49 AM EDT Temperature 36.8 C (98.2 F) 04/10/2025 8:49 AM EDT Respiratory Rate 18 04/10/2025 8:49 AM EDT Oxygen Saturation 98% 04/10/2025 8:49 AM EDT Inhaled Oxygen Concentration - - Weight 114 kg (251 lb) 04/10/2025 8:49 AM EDT Height 163.5 cm (5' 4.37 ) 09/08/2022 12:10 AM E DT Body Mass Index 42.59 09/08/2022 12:10 AM EDT Plan of Treatment Health Maintenance Due Date Last Done Comments CT Colonography 1978 Colonoscopy 1978 Colorectal Cancer Screening 1978 FIT DNA/Cologuard 1978 FIT 1978 FOBT 1978 Sigmoidoscopy 1978 Disability Screening 1978 Alcohol/Substance Use Screening 1990 Family Planning (PISQ) 1993 Hepatitis B Vaccines (1 of 3 - 19+ 3-dose series) 1997 01/25/2007 Depression Screening 02/09/2024 02/08/2023, 02/08/2023 SDOH Screening 02/09/2024 02/08/2023 Tobacco Screening 07/12/2025 07/12/2024 COVID-19 Vaccine (4 - 2024-2 6 season) 2025 06/08/2022, 04/01/2021, 03/11/2021 Influenza Vaccine (#1) 2025 Lipid Panel 10/29/2026 10/29/2021 Zoster Vaccines (1 of 2) 2028 DTaP/Tdap/Td Vaccines (3 - T d or Tdap) 03/05/2035 03/05/2025, 06/16/2015, 11/13/2000 RSV Patients and Patients Aged 60 years [...] Years) and At-Risk Patients (6 to 49) Years Aged Out No longer eligible b ased on patient's age to complete this topic RSV under 20 months Aged Out No longe r eligible based on patient's age to complete this topic Rotavirus Vaccines Aged Out No longer eligible based on patient's age to complete this topic Procedures Procedure Name Priority Date/Time Associated Diagnosis Comments URINALYSIS WITH REFLEX MICROSCOPIC Routine 07/30/2025 1:[address] ABDOMEN PELVIS W CONTRAST Routine 07/30/2025 1:06 PM EDT HIGH SENSITIVITY TROPONIN I Routine 07/30/2025 10:57 AM EDT LIPASE Routine 07/30/2025 10:57 AM EDT COMPREHENSIVE METABOLIC PANEL Routine 07/30/2025 10:57 AM EDT APTT Routine 07/30/2025 10:57 AM EDT PROTHROMBIN TIME-INR Routine 07/30/2025 10:57 AM EDT CBC WITH AUTO DIFFERENTIAL Routine 07/30/2025 10:57 AM EDT URINALYSIS WITH REFLEX MICROSCOPIC Routine 05/24/2025 1:19 PM EDT XR LUMBAR SPINE 2-3 VIEWS Routine 05/24/2025 12:36 PM EDT MAGNESIUM Routine 05/24/2025 11:26 AM EDT COMPREHENSIVE METABOLIC PANEL Routine 05/24/2025 11:26 AM EDT CBC WITH AUTO DIFFERENTIAL Routine 05/24/2025 11:26 AM EDT ZZZ HISTORICAL HEPATITIS C ANTIBODY RFLX Routine 10/29/2021 9:30 AM EST ZZZ HISTORICAL HIV AB/AG Routine 10/29/2021 9:30 AM EST ZZZ HISTORICAL LIPID PANEL Routine 10/29/2021 9:30 AM EST from Last 3 Months or Most Recently Relevant to Health Maintenance Results * (ABNORMAL) Urinalysis w/reflex microscopic (07/30/2025 1:46 PM EDT) Only the most recent of2 resultswithin the time period is included. Color Urine Yellow [facility] Appearance Urine Clear [facility] PH 6.5 5.0 - 9.0 [facility] Glucose Urine UA Negative Negative mg/dL [facility] Urine Blood Negative Negative [facility] Specific [place] - Urine >=1.030(H) 1.005 - 1.025 [facility] Urine Protein Negative Neg-Trace mg/dL [facility] Urine Ketones Negative Negative mg/dL [facility] Nitrite Urine Negative Negative [facility] Leukocyte Esterase Urine Negative Negative [facility] 07/30/2025 1:46 PM EDT 07/30/2025 1:51 PM EDT Narrative [facility] - 07/30/2025 1:56 PM EDT [id number], Clean Catch us Generic External Data Provider LAB URINE ORDERAB LES Final Result Performing Organization Address City/State/[facility] Co de Phone Number [facility] [address] [place] [address] [phone] * CT Abdomen Pelvis w/ Contrast (07/30/2025 1:06 PM EDT) Anatomical Region Laterality Modality Body, Pelvis, Abdomen Computed T omography 07/30/2025 1:06 PM EDT Narrative 07/30/2025 1:47 PM EDT [address] [address] [address] Scan Report Signed Patient: Jm King MR#: [id number] : 1980 Acct:[id number] Age/Sex: 44 / M ADM Date: 07/30/25 Loc: HO.ED Attending Dr: Ordering Physician: Reji Sorenson MD Date of Service: 07/30/25 Procedure(s): CT abdomen pelvis w IV con Accession Number(s): [id number] cc: Reji Sorenson MD; Yue Mei DO Report Number: [id number]: Total DLP = 807.00 mGy-cm Reason for Exam: abd. pain, diarrhea, R/ O massive colitis EXAMINATION: CT ABDOMEN AND PELVIS WITH CONTRAST CLINICAL INFORMATION: abd. pain, diarrhea, R/ O colitis; COMPARISON: None available. TECHNIQUE: Multidetector volumetric images were obtained from the superior aspect of the liver through the pubic symphysis following administration 85 mL of Omnipaque 350 intravenous contrast. Sagittal and coronal reformatted images were obtained on the technologist's workstation. Oral contrast: No This CT examination was performed using dose optimization techniques as appropriate, variously including the following: *Automated exposure control *Adjustment of mA and/or kV according to patient size (this includes techniques or standardized protocols for targeted exams where dose is matched to indication/reason for exam; i.e. extremities or head) *Use of iterative reconstruction technique DLP: 807 mGy*cm FINDINGS: LUNG BASES: Clear LIVER, GALLBLADDER, AND BILIARY TREE: There is decreased attenuation of the liver with focal sparing in the posterior inferior left lateral segment The gallbladder contains a small focal punctate area of height density in the dependent portion of the gallbladder. PANCREAS: Unremarkable. SPLEEN: Unremarkable. ADRENAL GLANDS: Unremarkable. KIDNEYS AND URETERS: Left nephrectomy has been performed. The remaining distal left ureter is mildly dilated. The right kidney is unremarkable. BLADDER: There is thickening along the posterior wall of the bladder measuring up to 1 cm in thickness and up to 4 cm wide with an undulating appearance GASTROINTESTINAL TRACT: There are a few scattered pseudodiverticula in the colon. There is no gross wall thickening or fat stranding. The appendix is within normal limits. ABDOMINAL WALL: Small right inguinal hernia contains fat and tents the adjacent adjacent bladder. LYMPH NODES: Normal. VASCULAR: Unremarkable. PELVIC VISCERA: Unremarkable. 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 There is a vague area of sclerosis in the right upper sacrum measuring 2.[address]/CT abdomen pelvis w IV con IMPRESSION: Irregular plaque-like thickening involving posterior wall of the bladder 4 cm wide 1 cm thick raises question of transitional cell carcinoma. This area should be amenable to cystoscopy. There is a vague sclerotic area in the right upper sacrum measuring 2.1 x 3.2 cm. While this may be mechanical in nature, a sclerotic metastasis cannot be ruled out. Left nephrectomy. Hepatic steatosis. Gallstones versus polyp. Fleischner guidelines were followed. Electronically signed by: Alf Amaro MD 07/30/2025 01:44 PM EDT RP Dictated By: Alf Amaro MD Signed By: <Electronically signed by Alf Amaro MD in OV> 07/30/25 1344 DD/ 1306 TD/TT: 07/30/25 1328 Field Manager: Procedure Note Donotuseinterpreter, Image - 07/30/[address] [place] [address] [address] Scan Report Signed Patient: Jm King EMR#: [id number] : 1980Acct:[id number] Age/Sex: 44 / MADM Date: 07/30/25 Loc: HO.ED Attending Dr: Ordering Physician: Reji Sorenson MD Date of Service: 07/30/25 Procedure(s): CT abdomen pelvis w IV con Accession Number(s): [id number] cc: Reji Sorenson MD; Yue Mei DO Report Number: [id number]: Total DLP = 807.00 mGy-cm Reason for Exam: abd. pain, diarrhea, R/ O massive colitis EXAMINATION: CT ABDOMEN AND PELVIS WITH CONTRAST CLINICAL INFORMATION: abd. pain, diarrhea, R/ O colitis; COMPARISON: None available. TECHNIQUE: Multidetector volumetric images were obtained from the superior aspect of the liver through the pubic symphysis following administration 85 mL of Omnipaque 350 intravenous contrast. Sagittal and coronal reformatted images were obtained on the technologist's workstation. Oral contrast: No This CT examination was performed using dose optimization techniques as appropriate, variously including the following: *Automated exposure control *Adjustment of mA and/or kV according to patient size (this includes techniques or standardized protocols for targeted exams where dose is matched to indication/reason for exam; i.e. extremities or head) *Use of iterative reconstruction technique DLP: 807 mGy*cm FINDINGS: LUNG BASES: Clear LIVER, GALLBLADDER, AND BILIARY TREE: There is decreased attenuation of the liver with focal sparing in the posterior inferior left lateral segment The gallbladder contains a small focal punctate area of height density in the dependent portion of the gallbladder. PANCREAS: Unremarkable. SPLEEN: Unremarkable. ADRENAL GLANDS: Unremarkable. KIDNEYS AND URETERS: Left nephrectomy has been performed. The remaining distal left ureter is mildly dilated. The right kidney is unremarkable. BLADDER: There is thickening along the posterior wall of the bladder measuring up to 1 cm in thickness and up to 4 cm wide with an undulating appearance GASTROINTESTINAL TRACT: There are a few scattered pseudodiverticula in the colon. There is no gross wall thickening or fat stranding. The appendix is within normal limits. ABDOMINAL WALL: Small right inguinal hernia contains fat and tents the adjacent adjacent bladder. LYMPH NODES: Normal. VASCULAR: Unremarkable. PELVIC VISCERA: Unremarkable. 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 There is a vague area of sclerosis in the right upper sacrum measuring 2.[address]/CT abdomen pelvis w IV con IMPRESSION: Irregular plaque-like thickening involving posterior wall of the bladder 4 cm wide 1 cm thick raises question of transitional cell carcinoma. This area should be amenable to cystoscopy. There is a vague sclerotic area in the right upper sacrum measuring 2.1 x 3.2 cm. While this may be mechanical in nature, a sclerotic metastasis cannot be ruled out. Left nephrectomy. Hepatic steatosis. Gallstones versus polyp. Fleischner guidelines were followed. Electronically signed by: Alf Amaro MD 07/30/2025 01:44 PM EDT Dictated By: Alf Amaro MD Signed By: <Electronically signed by Alf Amaro MD in OV> 07/30/25 1344 DD/ 1306 TD/TT: 07/30/25 1328 Field Manager: [facility] External Provider IMG CT PROCEDURES Edited Result - Final * High Sensitivity Troponin I (07/30/2025 10:57 AM EDT) [facility] TROPONIN I HIGH SENSITIVITY <2.7 <3.5 - 35.0 ng/L [facility] Comment:The [facility] high sens itivity Troponin-I results should beused in conjunction with other diagnostic information suchas ECG, clinical observations and information, and patientsymptoms to aid in the diagnosis of [place]. 07/30/2025 10:5 7 AM EDT 07/30/2025 11:01 AM EDT us Generic External Data Provider LAB BLOOD ORDERAB LES Final Result [facility] [address] [place] [address] [phone] * CBC auto differential (07/30/2025 10:57 AM EDT) Only the most recent of2 resultswithin the time period is included. [facility] White Blood Count 10.8 4.8 - 10.8 X10*3/uL [facility] Red Blood Count 5.13 4.60 - 5.80 X10*6/uL [facility] Hemoglobin 14.9 14.0 - 18.0 g/dl [facility] Hematocrit 42.0 42.0 - 52.0 % [facility] Mean Corpuscular Volume 81.9 80.0 - 98.0 fL [facility] Mean Corpuscular Hemoglobin 29.0 27.0 - 33.0 pg [facility] Mean Corpuscular HGB Conc 35.5 31.0 - 36.0 g/dl [facility] Red Cell Distribution Width 14.2 11.0 - 16.0 % [facility] Platelet Count 304 160 - 400 X10*3/uL [facility] Mean Platelet Volume 11.7 9.4 - 12.4 fL [facility] Neutrophils Percent Auto 64.2 45 - 73 % [facility] Imm Gran Pct Auto 0.2 0.0 - 0.4 % [facility] Lymphocytes Percent Auto 27.7 20 - 40 % [facility] Monocytes Percent Auto 5.4 2 - 11 % [facility] Eosinophils Percent Auto 1.8 0 - 4 % [facility] Basophils Percent Auto 0.7 0 - 2 % [facility] NRBC Pct Auto 0.0 0.0 - 0.2 /100WBC [facility] Neutrophils Absolute Auto 6.9 2.0 - 8.3 x10*3/uL [facility] Imm Gran Abs Auto 0.02 0.00 - 0.03 X10*3/uL [facility] Lymphocytes Absolute Auto 3.0 1.2 - 4.9 X10*3/uL [facility] Monocytes Absolute Auto 0.6 0.1 - 1.2 X10*3/uL [facility] Eosinophils Absolute Auto 0.2 0.0 - 0.4 X10*3/uL [facility] Basophils Absolute Auto 0.1 0.0 - 0.2 X10*3/uL [facility] NRBC Abs Auto 0.000 0.0 - 0.012 X10*3/uL [facility] 07/30/2025 10:5 7 AM EDT 07/30/2025 11:01 AM EDT us Generic External Data Provider LAB BLOOD ORDERAB LES Final Result Performing Organization Address [facility] Co de Phone Number [facility] [address] [place] [phone] * (ABNORMAL) Partial Thromboplastin Time, Activated (APTT) (07/30/2025 10:57 AM EDT) Partial Thromboplastin Time 37.0(H) 26.7 - 34.1 SEC [facility] 07/30/2025 10:5 7 AM EDT 07/30/2025 11:01 AM EDT us Generic External Data Provider LAB BLOOD ORDERAB LES Final Result [facility] [address] [place] [phone] * Prothrombin Time-INR (07/30/2025 10:57 AM EDT) Pathologist [facility] Prothrombin Time 12.3 10.9 - 12.4 SEC [facility] INTERNATIONAL NORM RATIO 1.1 0.9 - 1.1 [facility] Comment:INTERNATIONAL NORMAL IZED RATIO (INR) REFERENCE RANGES Reference RangeFor patients not on anticoagulant therapy: 0.9 - 1.1INR ranges for oral anticoagulanttherapy:For prevention and treatment of venous thrombosis and pulmonary embolism: 2.0 - 3.0For acute myocardial infarction with aspirin therapy: 2.0 - 3.0For acute myocardial infarction without aspirin therapy: 3.0 - 4.0For patients with mechanical prosthetic heart valves: 2.5 - 3.5 07/30/2025 10:5 7 AM EDT 07/30/2025 11:01 AM EDT us Generic External Data Provider LAB BLOOD ORDERAB LES Final Result Performing Organization Address [facility] Co de Phone Number [facility] [address] [place] [phone] * Lipase (07/30/2025 10:57 AM EDT) [facility] Lipase 24 8 - 78 U/L [facility] 07/30/2025 10:5 7 AM EDT 07/30/2025 11:01 AM EDT us Generic External Data Provider LAB BLOOD ORDERAB LES Final Result Performing Organization Address [facility] Co de Phone Number [facility] [address] [place] [phone] * (ABNORMAL) Comprehensive Metabolic Panel (07/30/2025 10:57 AM EDT) Only the most recent of2 resultswithin the time period is included. Pathologist [facility] Sodium 140 135 - 145 mmol/L [facility] Potassium 3.7 3.3 - 5.1 mmol/L [facility] Chloride 108 96 - 108 mmol/L [facility] Carbon Dioxide 25 22 - 29 mmol/L [facility] Anion Gap 11(L) 12 - 20 [facility] Urea Nitrogen (BUN) 19(H) 9 - 16 mg/dL [facility] Creatinine, Serum 1.30 0.5 - 1.4 mg/dL [facility] Creatinine Clr Calc Pharmacy 80.3 [facility] Comment:eGFR (calculated fro m the MDRD study equation) and eCrCl(calculated from the Cockcroft-Gault equation) are based ondifferent parameters and may not yield comparable results.If eCrCl result is absurd, please check patient'sheight/weight. Estimated Glomerular Filt Rate 59 [facility] Comment:Chronic Kidney Disea se: Estimated GFR < 60 mL/min/1.26b5Axgzkx Kidney Disease: Estimated GFR < 15 mL/min/1.73m2 Glucose 105 60 - 115 mg/dL [facility] Calcium 9.4 8.4 - 10.2 mg/dL [facility] Bilirubin, Total 0.5 0.0 - 1.0 mg/dL [facility] Aspartate Amino Transferase 30 5 - 37 U/L [facility] Alanine Aminotransferase 33 0 - 40 U/L [facility] Total Protein 7.6 6.5 - 8.0 g/dL [facility] Albumin Level 4.9 3.5 - 5.0 g/dL [facility] Alkaline Phosphatase 57 39 - 117 U/L [facility] 07/30/2025 10:5 7 AM EDT 07/30/2025 11:01 AM EDT us Generic External Data Provider LAB BLOOD ORDERAB LES Final Result [facility] [address] [place] [phone] * XR Lumbar Spine 2-3 Views (05/24/2025 12:36 PM EDT) Anatomical Region Laterality Modality Spine, L-spine Radiographic Ivelisse ging 05/24/2025 12:3 6 PM EDT Narrative 05/24/2025 12:37 PM EDT [address] [address] XRay Report Signed Patient: Jm King MR#: [id number] : 1980 Acct:[id number] Age/Sex: 44 / M ADM Date: 05/24/25 Loc: HO.ED Attending Dr: Ordering Physician: Katherin Mcfarlane Date of Service: 05/24/25 Procedure(s): XR lumbar spine 2-3V Accession Number(s): [id number] cc: Yue Mei DO; Katherin Mcfarlane CLINICAL HISTORY: pain 3 views lumbar spine Comparison: None provided Findings: Normal alignment. Lumbar vertebral body heights are preserved. No acute fractures or dislocation. Mild vertebral spondylosis. Intervertebral disc heights are preserved in the lumbar spine. IMPRESSION: No acute findings. This document has been electronically signed by: Jean Lim MD on 05/24/2025 12:36:25 Dictated By: Jean Lim MD Signed By: <Electronically signed by Jean Lim MD in OV> 05/24/25 1236 DD/ 1236 TD/TT: 05/24/25 1236 Field Manager: Procedure Note Donotuseinterpreter, Image - 05/24/[address] [address] XRay Report Signed Patient: Jm King EMR#: [id number] : 1980Acct:[id number] Age/Sex: 44 / MADM Date: 05/24/25 Loc: HO.ED Attending Dr: Ordering Physician: Katherin Mcfarlane Date of Service: 05/24/25 Procedure(s): XR lumbar spine 2-3V Accession Number(s): [id number] cc: Yue Mei DO; Katherin Mcfarlane CLINICAL HISTORY: pain 3 views lumbar spine Comparison: None provided Findings: Normal alignment. Lumbar vertebral body heights are preserved. No acute fractures or dislocation. Mild vertebral spondylosis. Intervertebral disc heights are preserved in the lumbar spine. IMPRESSION: No acute findings. This document has been electronically signed by: Jean Lim MD on 05/24/2025 12:36:25 Dictated By: Jean Lim MD Signed By: <Electronically signed by Jean Lim MD in OV> 05/24/25 1236 DD/ 1236 TD/TT: 05/24/25 1236 Field Manager: [facility] External Provider IMG XR PROCEDURES Edited Result - Final * Magnesium (05/24/2025 11:26 AM EDT) Pathologist [facility] Magnesium 2.2 1.6 - 2.6 mg/dL [facility] 05/24/2025 11:2 6 AM EDT 05/24/2025 11:29 AM EDT Generic External Data Provider LAB BLOOD ORDERAB LES Final Result Performing Organization Address [facility]/ZIP Co de Phone Number [facility] [address] [place] [phone] * HEPATITIS C ANTIBODY RFLX (10/29/2021 9:30 AM EST) Pathologist [facility] Hepatitis C Antibody Nonreactive Nonreactive [facility] Comment: Antibodies to HCV not detected; does not exclude early acute HCV infection. 10/29/2021 9:30 AM EST Yue Mei DO HISTORICAL/NON ORDERABLE LAB S Final Result Performing Organization Address [facility]/ZIP Co de Phone Number [facility] [address] * HIV AB/AG (10/29/2021 9:30 AM EST) Pathologist [facility] HIV AB/AG Nonreactive Nonreactive [facility] Comment: HIV-1 p24 Ag and/or HIV-1/HIV-2 Ab not detected. A test result that is nonreactive does not exclude the possibility of exposure to or infection with HIV-1 and/or HIV-2. Nonreactive results in this assay for individuals with prior exposure to HIV-1 and/or HIV-2 may be due to antigen and antibody levels that are below the limit of detection of this assay. The [facility] [employer] HIV Ag/Ab Combo assay result and supplemental assay results should be interpreted in conjunction with the patient's clinical presentation, history and other laboratory results. If the results are inconsistent with clinical evidence, additional testing is suggested to confirm the result. 10/29/2021 9:30 AM EST us Yue Mei DO HISTORICAL/NON ORDERABLE LAB S Final Result [facility] [address] * (ABNORMAL) LIPID PANEL (10/29/2021 9:30 AM EST) Cholesterol 125 mg/dL [facility] Comment: Desirable Cholesterol: less than 200 mg/dL Borderline High Cholesterol: 200-239 mg/dL High Cholesterol: greater than 239 mg/dL HDL Cholesterol 37 mg/dL [facility] Comment: Desirable HDL: greater than 40 mg/dL Note: This HDL assay may give artificially low results in patients with liver disease. LDL Cholesterol Calculated 64 mg/dl [facility] SYSTEM Comment: Desirable LDL: less than 100 mg/dL Near Optimal/Above Optimal LDL: 110-129 mg/dL Borderline High LDL: 130-159 mg/dL High LDL: 160-189 mg/dL Very High LDL: greater than or equal to 190 mg/dL Triglycerides 122 mg/dL [facility] Comment: Desirable Triglyceride: less than 150 mg/dL Borderline High Triglyceride 150-199 mg/dL High Triglyceride: 200-499 mg/dL Very High Triglyceride: greater than or equal to 5OO mg/dL Thyroid Stimulating Hormone 2.87 0.32 - 4.0 uIU/mL [facility] Comment: Note: A sustained TSH level above 2.5 uIU/mL may warrant further investigation. TSH 3rd Generation ([facility]) Alanine Aminotransferase 22 0 - 40 U/L [facility] Albumin Level 4.2 3.5 - 5.0 g/dL [facility] Alkaline Phosphatase 64 39 - 117 U/L [facility] Aspartate Amino Transferase 15 5 - 37 U/L [facility] Bilirubin Direct <0.2 0.0 - [...] SYSTEM Chloride 105 96 - 108 mmol/L [facility] Creatinine, Serum 1.31 0.5 - 1.4 mg/dL [facility] Estimated Glomerular Filt Rate 60 [facility] Comment: NOTE: For -Bhutanese individuals, multiply the result by 1.210. Chronic Kidney Disease: Estimated GFR < 60 mL/min/1.73m2 Severe Kidney Disease: Estimated GFR < 15 mL/min/1.73m2 Glucose Random 97 60 - 115 mg/dL [facility] Potassium 4.2 3.3 - 5.1 mmol/L [facility] Sodium 140 135 - 145 mmol/L [facility] Vitamin D 25-OH Total 31.7 >30 ng/mL [facility] Comment: Health Based Reference Values* < 20 ng/mL Deficient 20-30 ng/mL Insufficient > 30 ng/mL Sufficient *Faye CHAHAL. N Engl J Med. 2007;357:266-280 Care must be taken in interpreting Vitamin D results from different laboratories and methodologies. Published data demonstrated that results from patients undergoing hemodialysis may show a negative bias when tested with various automated 25-OH vitamin D assays when compared to LC-MS/MS. When testing samples from patients whose predominant form of Vitamin D is Vitamin D2, such as patients receiving Vitamin D2 supplementation, results that are subtherapeutic should be confirmed with another method such as LC-MS/MS. Free T4 (Free Thyroxine) 1.31 0.71 - 1.85 ng/dL [facility] 10/29/2021 9:30 AM EST us Yue Mei DO HISTORICAL/NON ORDERABLE LAB S Final Result [facility] [address] from Last 3 Months or Most Recently Relevant to Health Maintenance Insurance N PARTIAL Care Teams Fight Manager Relationship Specialty Start Date End Date Yue Mei DO [address] [place] [phone] PCP - General Family Medicine 06/03/15
--- OUTSIDE RECORDS SUMMARY | 2025-07-30 15:54 | XMS_ITS | Encounter Summary ---
Author Organization [employer] Address [address] [facility] 7t [place] [address] Care Team Providers Care Semaphore Operator Name Role Phone Yue Mei DO Primary Care Provider [phone] Reason for Visit * Reason Comments Med Refill Encounter Details Date Type Department Care Team ([facility] st Contact Info) Description 11/11/2022 Refill [facility] [address] [place] [address] Yue Mei DO [address] [place], [place] [phone] Chronic GERD (Primary Dx) Social History Tobacco [...] Primary documented in this encounter Care Teams Semaphore Operator Relationship Specialty Start Date End Date Yue Mei DO [address], [place] [phone] PCP - General Family Medicine 06/03/15 documented as of this encounter
--- OUTSIDE RECORDS SUMMARY | 2025-07-30 15:54 | XMS_ITS | Encounter Summary ---
Author Organization [employer] Address [address] [facility] 7t [place] [address] Care Team Providers Care Materials Branch Chief Name Role Phone Yue Mei DO Primary Care Provider [phone] Reason for Visit * Reason Onset Date Comments Med Refill Follow up breast imaging 01/30/2023 Encounter Details Date Type Department Care Team (Late st Contact Info) Description 01/30/2023 Refill [facility] [address] [place] [address] Yue Mei DO [address] [place], [place] [phone] Social History Tobacco Use Types Packs/Day Years [...] he's able to leave work early if [facility] [place] had afternoon appointments. Let patient know that due to his work schedule it might be best for him to call in and arrange the appointment himself . I provided patient with the number and let him know of the Bengali speaking staff that works there , Message forwarded to pcp as fyi. documented in this encounter Plan of Treatment Not on file documented as of this encounter Visit Diagnoses Not on filedocumented in this encounter Care Teams Materials Branch Chief Relationship Specialty Start Date End Date Yue Mei DO [address] [place] [address] PCP - General Family Medicine 06/03/15 documented as of this encounter
--- OUTSIDE RECORDS SUMMARY | 2025-07-30 15:55 | XMS_ITS | Encounter Summary ---
Author Organization [employer] Address [address] [facility] [address] 7[address] [place] [address] Care Team Providers Care Erp Project Manager Name Role Phone Yue Mei DO Primary Care Provider [phone] Encounter Details Date Type Department Care Team (Late st Contact Info) Description 07/30/2025 Orders Only GENERIC EXTERNAL DATA DEPARTMENT Provider, Generic External Data Social History Tobacco Use Types Packs/Day Years [...] TROPONIN I Routine 07/30/2025 10:57 AM EDT CBC WITH AUTO DIFFERENTIAL Routine 07/30/2025 10:57 AM EDT APTT Routine 07/30/2025 10:57 AM EDT PROTHROMBIN TIME-INR Routine 07/30/2025 10:57 AM EDT LIPASE Routine 07/30/2025 10:57 AM EDT COMPREHENSIVE METABOLIC PANEL Routine 07/30/2025 10:57 AM EDT documented in this encounter Results * (ABNORMAL) Urinalysis w/reflex microscopic (07/30/2025 1:46 PM EDT) Color Urine Yellow [facility] Appearance Urine Clear [facility] PH 6.5 5.0 - 9.0 [facility] Glucose Urine UA Negative Negative mg/dL [facility] Urine Blood Negative Negative [facility] Specific [employer] - Urine >=1.030(H) 1.005 - 1.025 [facility] Urine Protein Negative Neg-Trace mg/dL [facility] Urine Ketones Negative Negative mg/dL [facility] Nitrite Urine Negative Negative [facility] Leukocyte Esterase Urine Negative Negative [facility] 07/30/2025 1:46 PM EDT 07/30/2025 1:51 PM EDT Narrative [facility] - 07/30/2025 1:56 PM EDT [id number], [employer] us Generic External Data Provider LAB URINE ORDERAB LES Final Result [facility] [address] [place] [phone] * CT Abdomen Pelvis w/ Contrast (07/30/2025 1:06 PM EDT) Anatomical Region Laterality Modality Body, Pelvis, Abdomen Computed T omography 07/30/2025 1:06 PM EDT Narrative 07/30/2025 1:47 PM EDT [address] [address] [address] Scan Report Signed Patient: mJ King MR#: [id number] : 1980 Acct:[id number] Age/Sex: 44 / M ADM Date: 07/30/25 Loc: HO.ED Attending Dr: Ordering Physician: Reji Sorenson MD Date of Service: 07/30/25 Procedure(s): CT abdomen pelvis w IV con Accession Number(s): [id number] cc: Reji Sorenson MD; Yue Mei DO Report Number: [id number]: Total DLP = 807.00 mGy-cm Reason for [...] 07/30/25 1344 DD/ 1306 TD/TT: 07/30/25 1328 Director Clinical Research: Procedure Note Donotuseinterpreter, Image - 07/30/[address] [address] [address] Scan Report Signed Patient: Jm King EMR#: [id number] : 1980Acct:[id number] Age/Sex: 44 / MADM Date: 07/30/25 Loc: HO.ED Attending Dr: Ordering Physician: Reji Sorenson MD Date of Service: 07/30/25 Procedure(s): CT abdomen pelvis w IV con Accession Number(s): [id number] cc: Reji Sorenson MD; Yue Mei DO Report Number: [id number]: Total DLP = 807.00 mGy-cm Reason for [...] 07/30/25 1344 DD/ 1306 TD/TT: 07/30/25 1328 Director Clinical Research: [facility] External Provider IMG CT PROCEDURES Edited Result - Final * High Sensitivity Troponin I (07/30/2025 10:57 AM EDT) TROPONIN I HIGH SENSITIVITY <2.7 <3.5 - 35.0 ng/L [facility] Comment:The [facility] high sens itivity Troponin-I results should beused in conjunction with other diagnostic information suchas ECG, clinical observations and information, and patientsymptoms to aid in the diagnosis of [place]. 07/30/2025 10:5 7 AM EDT 07/30/2025 11:01 AM EDT Generic External Data Provider LAB BLOOD ORDERAB LES Final Result [facility] [address] [place] [phone] * Lipase (07/30/2025 10:57 AM EDT) Lipase 24 8 - 78 U/L [facility] 07/30/2025 10:5 7 AM EDT 07/30/2025 11:01 AM EDT us Generic External Data Provider LAB BLOOD ORDERAB LES Final Result [facility] [address] [place] [phone] * (ABNORMAL) Comprehensive Metabolic Panel (07/30/2025 10:57 AM EDT) Sodium 140 135 - 145 mmol/L [facility] Potassium 3.7 3.3 - 5.1 mmol/L [facility] Chloride 108 96 - 108 mmol/L [facility] Carbon Dioxide 25 22 - 29 mmol/L [facility] Anion Gap 11(L) 12 - 20 [facility] Urea Nitrogen (BUN) 19(H) 9 - 16 mg/dL [facility] Creatinine, Serum 1.30 0.5 - 1.4 mg/dL [facility] Creatinine Clr Calc Pharmacy 80.3 [facility] Comment:eGFR (calculated fro m the MDRD study equation) and eCrCl(calculated from the Cockcroft-Gault equation) are based ondifferent parameters and may not yield comparable results.If eCrCl result is absurd, please check patient'sheight/weight. Estimated Glomerular Filt Rate 59 [facility] Comment:Chronic Kidney Disea se: Estimated GFR < 60 mL/min/[id number] Kidney Disease: Estimated GFR < 15 mL/min/1.73m2 Glucose 105 60 - 115 mg/dL [facility] Calcium 9.4 8.4 - 10.2 mg/dL [facility] Bilirubin, Total 0.5 0.0 - 1.0 mg/dL [facility] Aspartate Amino Transferase 30 5 - 37 U/L [facility] Alanine Aminotransferase 33 0 - 40 U/L [facility] Total Protein 7.6 6.5 - 8.0 g/dL [facility] Albumin Level 4.9 3.5 - 5.0 g/dL [facility] Alkaline Phosphatase 57 39 - 117 U/L [facility] 07/30/2025 10:5 7 AM EDT 07/30/2025 11:01 AM EDT Generic External Data Provider LAB BLOOD ORDERAB LES Final Result Performing Organization Address [facility] Co de Phone Number [facility] [address] [place] [phone] * (ABNORMAL) Partial Thromboplastin Time, Activated (APTT) (07/30/2025 10:57 AM EDT) Partial Thromboplastin Time 37.0(H) 26.7 - 34.1 SEC [facility] 07/30/2025 10:5 7 AM EDT 07/30/2025 11:01 AM EDT Generic External Data Provider LAB BLOOD ORDERAB LES Final Result Performing Organization Address [facility] de Phone Number [facility] [address] [place] [phone] * Prothrombin Time-INR (07/30/2025 10:57 AM EDT) Prothrombin Time 12.3 10.9 - 12.4 SEC [facility] INTERNATIONAL NORM RATIO 1.1 0.9 - 1.1 [facility] Comment:INTERNATIONAL NORMAL IZED RATIO (INR) REFERENCE [...] Provider LAB BLOOD ORDERAB LES Final Result [facility] [address] [place] [phone] * CBC auto differential (07/30/2025 10:57 AM EDT) White Blood Count 10.8 4.8 - 10.8 X10*3/uL [facility] Red Blood Count 5.13 4.60 - 5.80 X10*6/uL [facility] Hemoglobin 14.9 14.0 - 18.0 g/dl [facility] Hematocrit 42.0 42.0 - 52.0 % [facility] Mean Corpuscular Volume 81.9 80.0 - 98.0 fL [facility] Mean Corpuscular Hemoglobin 29.0 27.0 - 33.0 pg [facility] Mean Corpuscular HGB Conc 35.5 31.0 - 36.0 g/dl [facility] Red Cell Distribution Width 14.2 11.0 - 16.0 % [facility] Platelet Count 304 160 - 400 X10*3/uL [facility] Mean Platelet Volume 11.7 9.4 - 12.4 fL [facility] Neutrophils Percent Auto 64.2 45 - 73 % [facility] Imm Gran Pct Auto 0.2 0.0 - 0.4 % [facility] Lymphocytes Percent Auto 27.7 20 - 40 % [facility] Monocytes Percent Auto 5.4 2 - 11 % [facility] Eosinophils Percent Auto 1.8 0 - 4 % [facility] Basophils Percent Auto 0.7 0 - 2 % [facility] NRBC Pct Auto 0.0 0.0 - 0.2 /100WBC [facility] Neutrophils Absolute Auto 6.9 2.0 - 8.3 x10*3/uL [facility] Imm Gran Abs Auto 0.02 0.00 - 0.03 X10*3/uL [facility] Lymphocytes Absolute Auto 3.0 1.2 - 4.9 X10*3/uL [facility] Monocytes Absolute Auto 0.6 0.1 - 1.2 X10*3/uL [facility] Eosinophils Absolute Auto 0.2 0.0 - 0.4 X10*3/uL [facility] Basophils Absolute Auto 0.1 0.0 - 0.2 X10*3/uL [facility] NRBC Abs Auto 0.000 0.0 - 0.012 X10*3/uL [facility] 07/30/2025 10:5 7 AM EDT 07/30/2025 11:01 AM EDT us Generic External Data Provider LAB BLOOD ORDERAB LES Final Result Performing Organization Address City/State/[facility] Co de Phone Number [facility] [address] [place] [phone] documented in this encounter Visit Diagnoses Not on filedocumented in this encounter Care Teams Erp Project Manager Relationship Specialty Start Date End Date Yue Mei DO [address] [place] [phone] PCP - General Family Medicine 06/03/15 documented as of this encounter
--- OUTSIDE RECORDS SUMMARY | 2025-07-30 15:55 | XMS_ITS | Encounter Summary ---
Author Organization [employer] Address [address] [facility] [address] [place] [address] Care Team Providers Care Funeral Pre Need Consultant Name Role Phone Yue Mei DO Primary Care Provider [phone] Encounter Details Date Type Department Care Team (Late st Contact Info) Description 05/08/2023 Orders Only [facility] [address] [place] [address] Yue Ham LPN Social History Tobacco Use [...] on filedocumented in this encounter Care Teams Funeral Pre Need Consultant Relationship Specialty Start Date End Date Yue Mei DO [address] [place] [address] PCP - General Family Medicine 06/03/15 documented as of this encounter
== END 2025-07-30 14:23 | disposition home or self-care (01) ==
PROVIDERS: Physician Assistant; Emergency Provider Emergency Medicine; PCP Family Medicine
DX: N32.9 Bladder disorder, unspecified (principal); R19.7 Diarrhea, unspecified; R94.31 Abnormal electrocardiogram [ECG] [EKG]; R10.2 Pelvic and perineal pain; Z51.81 Encounter for therapeutic drug level monitoring; Z79.899 Other long term (current) drug therapy
CPT/HCPCS: 36415; 74177; 80053; 81003; 83690; 84484; 85025; 85610; 85730; 93005; 96374; 99285; J1308; Q9967

== ENCOUNTER → 2025-07-30 10:47 | Outpatient (BNV) | payer SELFPAY | PROVIDERS: Emergency Provider Emergency Medicine; PCP Family Medicine; Visit Provider Internal Medicine | DX: R10.84 Generalized abdominal pain (principal) | CPT/HCPCS: 93010 ==

== ENCOUNTER → 2025-07-30 11:48 | Outpatient (BNV) | payer SELFPAY | PROVIDERS: Emergency Provider Emergency Medicine; PCP Family Medicine; Visit Provider Radiology Diagnostic Radiology | DX: R93.5 Abnormal findings on diagnostic imaging of other abdominal regions, including retroperitoneum (principal) | CPT/HCPCS: 74177 ==

== ENCOUNTER 2025-09-19 14:15 | Outpatient (AMB) | payer MEDICAID, SELFPAY ==
--- NOTE | 2025-09-19 14:21 | MHC.OFFVIS ---
Intake Visit Reasons: bladder wall thickening Intake Note: New Patient is Present for Follow Up Bladder Wall Thickening Urology Medication: None Antibiotic Allergies: None Blood Thinners: None PVR: 20ml Actuarial Clerk Required: No Neurodiagnostic Technician: Neurodiagnostic Technician Present Accompanied by: Spouse Allergies No Known Allergies Allergy (Verified 09/19/25 14:25) HPI Comments Details: - bladder wall thickening PVR today is 0 cc PFSH Medical History Hernia Migraines HTN (hypertension) Social History Alcohol intake: former Office Procedures Post Void Residual Post Residual Void Post Void Residual (PVR): 20 [id number] Void Residual by ultrasound Results AMB Urinalysis, Automated UA Leukoctes 0 Amy/uL Last Edit by Yue Diaz [facility] on 09/19/25 14:38 UA Nitrite Negative Last Edit by Yue Diaz [facility] on 09/19/25 14:38 UA Urobilinogen 0.2 mg/dL Last Edit by Yue Diaz [facility] on 09/19/25 14:38 UA Protein 15 mg/dL Last Edit by Yue Diaz [facility] on 09/19/25 14:38 UA pH 6.0 Last Edit by Yue Diaz [facility] on 09/19/25 14:38 UA Blood 0 Charles/uL Last Edit by Yue Diaz [facility] on 09/19/25 14:38 UA Specific [place] 1.015 Last Edit by Yue Diaz [facility] on 09/19/25 14:38 UA Ketone Negative Last Edit by Yue Diaz [facility] on 09/19/25 14:38 UA Bilirubin 0 mg/dL Last Edit by Yue Diaz [facility] on 09/19/25 14:38 UA Glucose 0 mg/dL Last Edit by Yue Diaz [facility] on 09/19/25 14:38 Results Reviewed Results Reviewed: Laboratory Last Values Urine pH (Auto) 6.0 09/19/25 14:37 Specific [place] (Auto) 1.015 09/19/25 14:37 Urine Protein (Auto) 15 mg/dL 09/19/25 14:37 Glucose (UA)(Auto) 0 mg/dL 09/19/25 14:37 Urine Ketones (Auto) Negative 09/19/25 14:37 Urine Blood (Auto) 0 Charles/uL 09/19/25 14:37 Urine Nitrite (Auto) Negative 09/19/25 14:37 Urine Bilirubin (Auto) 0 mg/dL 09/19/25 14:37 Urine Urobilinogen (Auto) 0.2 mg/dL 09/19/25 14:37 Leukocyte Esterase (Auto) 0 Amy/uL 09/19/25 14:37 Assessment & Plan Assessment & Plan Orders: Orders AMB Post Void Residual by ultrasound Today N32.89 - Other specified disorders of bladder AMB Urinalysis Automated Today Z13.9 - Encounter for screening, unspecified Medications: Discontinued naproxen Discontinued Reason: Patient Completed Course 500 mg PO BID PRN 20 tabs 0RF pain azithromycin Discontinued Reason: Patient Completed Course take 500 mg today (day 1), then 250 mg for 4 days (days 2-5) 6 tabs 0RF prednisone Discontinued Reason: Patient Completed Course 40 mg (2 x 20 mg) PO DAILY 5 days 10 tabs 0RF rash amoxicillin-pot clavulanate 875-125 mg Discontinued Reason: Patient Completed Course 1 tab PO BID 7 days 14 tabs 0RF ciprofloxacin HCl Discontinued Reason: Patient Completed Course 500 mg PO BID 2 days 4 tabs 0RF ibuprofen Discontinued Reason: Duplicate 600 mg PO Q6H PRN 30 tabs 0RF pain cyclobenzaprine Discontinued Reason: Patient Completed Course 5 mg PO Q8H PRN 9 tabs 0RF muscle pain Coding CPT Codes Post Residual Void - PVR CPT Code: 30251-[id number] Void Residual by ultrasound ([id number])
--- OUTSIDE RECORDS SUMMARY | 2025-09-19 15:59 | XMS_ITS | Encounter Summary ---
Author Organization [employer] Address [address] [facility] [address]t [place] [address] Care Team Providers Care Family Welfare Social Work Professor Name Role Phone Yue Mei DO Primary Care Provider [phone] Reason for Visit * Reason Onset Date Comments FMLA 09/17/2025 The patient's sp ouse came to the [facility] department, and picked up a copy of his insurance information. I informed her that he is scheduled to see his PCP on 10/06/25 at 9:45 am, to discuss the need for FMLA. I also provided the address and telephone number, to Dr. Savage's office at [facility]. She verbalized understanding, and agreed to relay the information to the patient. Encounter Details Date Type Department Care Team ([facility] st Contact Info) Description 09/17/2025 Telephone [facility] [address] [place] [address] Yue Mei DO [address] [place] [address] FMLA (The patient's spouse came to the [facility] department, and picked up a copy of his insurance information. I informed her that he is scheduled to see his PCP on 10/06/25 at 9:45 am, to discuss the need for FMLA. I also provided the address and telephone number, to Dr. Savage's office at [facility]. She verbalized understanding, and agreed to relay the information to the patient.) Social History Tobacco Use Types Packs/Day Years Used Date Smoking Tobacco: Never Smokeless Tobacco: Never Alcohol Use Standard Drinks/Week Comments Never 0 (1 standard drink = 0.6 oz pur e alcohol) Depression Answer Date Recorded Patient Health Questionnaire-9 Score 0 08/04/2025 Patient Health Questionnaire-9 Score 0 08/04/2025 Last PHQ-9: Questionnaire Data Not on file 0 08/04/2025 Housing Stability Answer Date Recorded What is your housing situation today? I have libby loyola 08/04/[address] you li ve. Do you have problems with any of the following? None of the above 08/04/2025 Food Insecurity Answer Date Recorded Within the past 12 months, y ou worried that your food would run out before you got money to buy more: Never True 08/04/2025 Within the past 12 months,th e food you bought just didn't last and you didn't have enough money to get more: Never True Transportation Answer Date Recorded In the past 12 months, has l ack of transportation kept you from medical appts, meetings, work or from getting things needed for daily living? No 08/04/2025 Utilities Answer Date Recorded In the past 12 months, has t he electric, gas, oil or water company threatened to shut off services in your home? No 08/04/2025 Depression Answer Date Recorded Patient Health Questionnaire-2 Score 0 08/04/2025 Internet Access Answer Date Recorded Internet Access Q1 No 08/04/2025 Internet Access Q2 I do not want or need it 07/15 Sex and Gender Information Value Date Recorded Sex Assigned at Male 09/12/2022 10:18 AM EDT Legal Sex Male 10:18 AM EDT Gender Identity Male 09/12/2022 10:18 AM EDT Sexual Orientation Straight 09/12/2022 10 :18 AM EDT documented as of this encounter Miscellaneous Notes * Telephone Encounter - Jocelynn Persaud [place] - 09/17/2025 4:05 PM EST The patient's spouse came to the HIM department, and picked up a copy of his insurance information.I informed her that he is scheduled to see his PCP on 10/06/25 at 9:45 am, to discuss the need for FMLA. I also provided the address and telephone number, to Dr. Savage's office at [facility]. She verbalized understanding, and agreed to relay the information to the patient. Please refer to the previous telephone call message from today. documented in this encounter Plan of Treatment Upcoming Encounters Date Type Department Care Team (Late st Contact Info) Description 10/06/2025 9:45 AM EST Office Visit [facility] [address] [place] [address] Yue Mei DO [address] [place] [address] documented as of this encounter Visit Diagnoses Not on filedocumented in this encounter Additional Health Concerns Assessment Noted Time PHQ-9 Depression Total Score: 0 08/04/20 25 3:13 PM EDT documented as of this encounter Care Teams Family Welfare Social Work Professor Relationship Specialty Start Date End Date Yue Mei DO [address] [place] [address] PCP - General Family Medicine 06/03/15 documented as of this encounter
--- OUTSIDE RECORDS SUMMARY | 2025-09-19 15:59 | XMS_ITS | Encounter Summary ---
Author Organization [employer] Address [address] [facility] [address] [place] [address] Care Team Providers Care Cash Applications Representative Name Role Phone Yue Mei DO Primary Care Provider [phone] Reason for Visit * Reason Onset Date Comments Med Refill Follow up breast imaging 01/30/2023 Encounter Details Date Type Department Care Team (Late st Contact Info) Description 01/30/2023 Refill [facility] [address] [place] [address] Yue Mei DO [address] [place], [place] [phone] Social History Tobacco Use Types Packs/Day Years [...] he's able to leave work early if [facility] [place] had afternoon appointments. Let patient know that due to his work schedule it might be best for him to call in and arrange the appointment himself . I provided patient with the number and let him know of the Hebrew speaking staff that works there , Message forwarded to pcp as fyi. documented in this encounter Plan of Treatment Upcoming Encounters Date Type Department Care Team (Late st Contact Info) Description 10/06/2025 9:45 AM EST Office Visit [facility] [address] [place] [address] Yue Mei DO [address] [place] [address] documented as of this encounter Visit Diagnoses Not on filedocumented in this encounter Care Teams Cash Applications Representative Relationship Specialty Start Date End Date Yue Mei DO [address] [place] [address] PCP - General Family Medicine 06/03/15 documented as of this encounter
--- OUTSIDE RECORDS SUMMARY | 2025-09-19 15:59 | XMS_ITS | Encounter Summary ---
Author Organization [employer] Address [address] [facility] [address] [place] [address] Care Team Providers Care Service Center Specialist Name Role Phone Yue Mei DO Primary Care Provider Encounter Details Date Type Department Care Team (Late st Contact Info) Description 11/15/2022 Orders Only [facility] [address] [place] [address] Yue Ham LPN Social History Tobacco Use Types Packs/Day Years Used Date Smoking Tobacco: Never Assessed Sex and Gender Information Value Date Recorded Sex Assigned at Male 09/12/2022 10:18 AM EDT Legal Sex Male 10:18 AM EDT Gender Identity Male 09/12/2022 10:18 AM EDT Sexual Orientation Straight 09/12/2022 10 :18 AM EDT documented as of this encounter Plan of Treatment Upcoming Encounters Date Type Department Care Team (Late st Contact Info) Description 10/06/2025 9:45 AM EST Office Visit [facility] [address] [place] [address] Yue Mei DO [address] [place] [address] documented as of this encounter Visit Diagnoses Not on filedocumented in this encounter Care Teams Service Center Specialist Relationship Specialty Start Date End Date Yue Mei DO [address] [place] [address] PCP - General Family Medicine 06/03/15 documented as of this encounter
--- OUTSIDE RECORDS SUMMARY | 2025-09-19 15:59 | XMS_ITS | Encounter Summary ---
Author Organization [employer] Address [address] [facility] [address] [place] [address] Care Team Providers Care Visual Design Lead Name Role Phone Yue Mei DO Primary Care Provider [phone] Encounter Details Date Type Department Care Team (Late st Contact Info) Description 10/09/2023 Orders Only [facility] [address] [place] [address] Lexus Cao LPN Social History Tobacco Use [...] Description 10/06/2025 9:45 AM EST Office Visit [facility] [address] [place], [place] [phone] Yue Mei DO [address] [place] [address] documented as of this encounter Procedures Procedure Name Priority Date/Time Associated Diagnosis Comments COVID-19 ID NOW (NOBLES) Routine 07/08/2024 10:36 AM EDT documented in this encounter Results * COVID-19 ID NOW (NOBLES) (07/08/2024 10:36 AM EDT) IDNOW SERIAL# [id number] [facility] COVID-19 TEST Negative Negative [facility] COVID-19 NOTE See Note [facility] Comment: Results are for the identification of SARS-CoV2 RNA. TheSARS-CoV2 RNA is generally detectable in respiratory samplesduring the acute phase of infection. Positive results areindicative of the presence of SARS-CoV-2 RNA; clinicalcorrelation with patient history and other diagnosticinformation is necessary to determine patient infectionstatus. Positive results do not rule out bacterial infectionor co- infection with other viruses.Testing facilities within the [facility] and itsterritories are required to report all positive results [...] use by authorized laboratories.Testing performed on the [email or web address] ID NOW utilizing NA[employer]. 07/08/2024 10:3 6 AM EDT 07/08/2024 10:39 AM EDT us Generic External Data Provider LAB [facility] ORDERABLES Final Result Performing Organization Address City/State/[facility] Co de Phone Number [facility] [address] [place] [phone] documented in this encounter Visit Diagnoses Not on filedocumented in this encounter Care Teams Visual Design Lead Relationship Specialty Start Date End Date Yue Mei DO [address] [place] [address] PCP - General Family Medicine 06/03/15 documented as of this encounter
--- OUTSIDE RECORDS SUMMARY | 2025-09-19 15:59 | XMS_ITS | Clinical Summary ---
Author Organization [employer] Address [address] [facility] 7t [place] [address] Care Team Providers Care Paper Cleaner Name Role Phone Yue Mei DO Primary [...] (pain). 150 g 3 02/09/20 23 Active D3 Super Strength 50 MCG (2000 UT) capsule TAKE 1 CAPSULE BY MOUTH EVERY MORNING 90 capsule 3 12/03/19 25 Active amLODIPine (Norvasc) 10 MG tablet TAKE 1 TABLET BY MOUTH EVERY MORNING 90 tablet 02/14/20 25 Active amLODIPine (Norvasc) 10 MG tablet Take 1 tablet (10 mg) by mouth Once per day. 90 tablet 3 02/14/20 25 026 Active hydroCHLOROthia zide (HYDRODiuril) 25 MG tablet TAKE 1 TABLET BY MOUTH EVERY MORNING 90 tablet 04/30/20 25 Active acetaminophen (Tylenol) 500 MG tablet Take 1-2 tablets (500-1,000 mg) by mouth every 6 (six) hours if needed for moderate pain or fever. 50 tablet 1 07/31/20 25 026 Active famotidine (Pepcid) 20 MG tablet TAKE 1 TABLET BY MOUTH TWICE DAILY 180 tablet 1 08/21/20 25 Active hydrALAZINE (Apresoline) 50 MG tabletIndicatio ns:Hypertension , unspecified type TAKE 1 TABLET BY MOUTH TWICE DAILY IN THE MORNING AND IN THE EVENING WITH FOOD 180 tablet 1 08/21/20 25 Active losartan (Cozaar) 100 MG tabletIndicatio ns:Hypertension , unspecified type TAKE 1 TABLET BY MOUTH EVERY MORNING 90 tablet 1 08/21/20 25 Active omeprazole (PriLOSEC) [address] capsule TAKE 1 CAPSULE BY MOUTH EVERY MORNING 90 capsule 1 08/21/20 25 Active famotidine (Pepcid) 20 MG tablet TAKE 1 TABLET BY MOUTH TWICE DAILY 180 tablet 1 11/22/19 25 025 Discontinued omeprazole (PriLOSEC) [address] capsule TAKE 1 CAPSULE BY MOUTH EVERY MORNING 90 capsule 1 12/25/19 25 025 Discontinued losartan (Cozaar) 100 MG tabletIndicatio ns:Hypertension , unspecified type TAKE 1 TABLET BY MOUTH EVERY MORNING 90 tablet 1 12/25/19 25 025 Discontinued hydrALAZINE (Apresoline) 50 MG tabletIndicatio ns:Hypertension , unspecified type TAKE 1 TABLET BY MOUTH TWICE DAILY IN THE MORNING AND IN THE EVENING WITH FOOD 180 tablet 1 12/25/19 025 Discontinued Hospital, Clinic, or Other Facility Administered Medication Ordered Dose Route Frequency Start Date End Date Status cloNIDine (Catapres) tablet 0.2 mgIndications:Hypertensive urgency 0.2 mg PO Once 02/05/2024 Active Active Problems Problem Noted Date Diagnosed Date Abnormal CT scan, bladder 08/04/2025 Assessment & Plan (08/04/2025 3:49 PM EDT): Orders: Referral to Urology; Future Morbid obesity ([facility]) 12/19/2022 Status post nephrectomy 12/19/2022 History of migraine 10/15/2022 History of nephrolithiasis 10/15/2022 Overview (10/15/2022): History of calculus of kidney Elevated fasting glucose 03/08/2016 Essential hypertension 03/08/2016 Chronic gastroesophageal reflux disease 03/08/20 16 Resolved Problems Problem Noted Date Diagnosed Date Resolved Date Obesity 03/08/2016 02/08/2023 Encounters Date Type Department Care Team Description 09/17/2025 Telephone [facility] MED[facility]INE [address] [place] [phone] Yue Mei DO FMLA (The patient's spouse came to the [facility] department, and picked up a copy of his insurance information. I informed her that he is scheduled to see his PCP on 10/06/25 at 9:45 am, to discuss the need for FMLA. I also provided the address and telephone number, to Dr. Savage's office at [facility]. She verbalized understanding, and agreed to relay the information to the patient.) 09/17/[address] [address] Yue Mei DO FMLA (I called the patient, regarding an application for FMLA. I informed him that he needs to schedule a PCP appointment, and also an appointment with urology. He stated that he had not scheduled an appointment, because he does not have insurance. He recently applied, and his insurance is now active. He agreed to come to the [facility] department, to picker box operator a print out of the insurance information, and will then contact Dr. Savage's office at [phone].) 08/19/2025 Refill [facility] [address] [place] [address] [phone] Yue Mei DO Hypertension, unspecified type 08/07/[address] [address] Mary Cristina RN ER Follow-up 08/04/2025 3:30 PM EDT Office Visit [address] [address] Isatu Gaming NP Ab[address] CT scan, bladder (Primary Dx) 08/04/2025 Travel [address] [phone] Isatu Gaming NP Chart Prep 07/30/[address] [address] Yue Mei DO 07/30/2025 Orders Only GENERIC EXTERNAL DATA DEPARTMENT Provider, Generic External Data from Last 3 Months Immunizations Immunization Administration Dates Next Due HPV, Bivalent 11/16/2009 Hep B, Adolescent or Pediatric 01/25/2007 Pfizer Covid-19 Vaccine 12+ 06/08/2022,,03/11/2021 TD (adult), 2 Lf tetanus tox oid, [...] Sign Reading Time Taken Comments Blood Pressure 139/89 08/04/2025 3:12 PM EDT Pulse 72 08/04/2025 3:12 PM EDT Temperature 36.1 C (97 F) 08/04/2025 3:12 PM EDT Respiratory Rate 25 08/04/2025 3:12 PM EDT Oxygen Saturation 99% 08/04/2025 3:12 PM EDT Inhaled Oxygen Concentration - - Weight 109 kg (239 lb 12.8 oz) 08/04/2025 3:12 P M EDT Height 162.6 cm (5' 4 ) 08/04/2025 3:12 PM EDT Body Mass Index 41.16 08/04/2025 3:12 PM EDT Plan of Treatment Upcoming Encounters Date Type Department Care Team (Late st Contact Info) Description 10/06/2025 9:45 AM EST Office Visit [facility] MEDICINE [address] [place] [address] Yue Mei DO [address] [place] [address] Health Maintenance Due Date Last Done Comments CT Colonography 1978 Colonoscopy 1978 Colorectal Cancer Screening 1978 FIT DNA/Cologuard 1978 FIT 1978 FOBT 1978 Sigmoidoscopy 1978 Family Planning (PISQ) 1993 Hepatitis B Vaccines (1 of 3 - 19+ 3-dose series) 1997 01/25/2007 COVID-19 Vaccine (4 - 2024-2 6 season) 2025 06/08/2022, 04/01/2021, 03/11/2021 Influenza Vaccine (#1) 2025 Alcohol/Substance Use Screening 08/04/2026 08/04/2025 Depression Screening 08/04/2026 08/04/2025, 08/04/2025 Disability Screening 08/04/2026 08/04/2025 SDOH Screening 08/04/2026 08/04/2025 Tobacco Screening 08/04/2026 08/04/2025 Lipid Panel 10/29/2026 10/29/2021 Zoster Vaccines (1 [...] AUTO DIFFERENTIAL Routine 07/30/2025 10:57 AM EDT ZDIGNA HISTORICAL HEPATITIS C ANTIBODY RFLX Routine 10/29/2021 9:30 AM EST THUAN HISTORICAL HIV AB/AG Routine 10/29/2021 9:30 AM EST THUAN HISTORICAL LIPID PANEL Routine 10/29/2021 9:30 AM EST from Last 3 Months or Most Recently Relevant to Health Maintenance Results * (ABNORMAL) Urinalysis w/reflex microscopic (07/30/2025 1:46 PM EDT) Color Urine Yellow [facility] Appearance Urine Clear [facility] PH 6.5 5.0 - 9.0 [facility] Glucose Urine UA Negative Negative mg/dL [facility] Urine Blood Negative Negative [facility] Specific [place] - Urine >=1.030(H) 1.005 - 1.025 [facility] Urine Protein Negative Neg-Trace mg/dL [facility] Urine Ketones Negative Negative mg/dL [facility] Nitrite Urine Negative Negative [facility] Leukocyte Esterase Urine Negative Negative [facility] 07/30/2025 1:46 PM EDT 07/30/2025 1:51 PM EDT Narrative [facility] - 07/30/2025 1:56 PM EDT [id number], Clean Catch us Generic External Data Provider LAB URINE ORDERAB LES Final Result [facility] [address] [place] [phone] * CT Abdomen Pelvis w/ Contrast (07/30/2025 1:06 PM EDT) Anatomical Region Laterality Modality Body, Pelvis, Abdomen Computed T omography 07/30/2025 1:06 PM EDT Narrative 07/30/2025 1:47 PM EDT [address] [address] [address] Scan Report Signed Patient: Jm King MR#: [id number] : 1980 Acct:[id number] Age/Sex: 44 / M ADM Date: 07/30/25 Loc: .ED Attending Dr: Ordering Physician: Reji Sorenson MD Date of Service: 07/30/25 Procedure(s): CT abdomen pelvis w IV con Accession Number(s): [id number] cc: Reji Sorenson MD; Yue Mei DO Report Number: [id number]: Total DLP = 807.00 mGy-cm Reason for [...] 07/30/25 1344 DD/ 1306 TD/TT: 07/30/25 1328 Diecast Machine Operator: Procedure Note Donotuseinterpreter, Image - 07/30/[address] [place] [address] [address] Scan Report Signed Patient: Jm King EMR#: [id number] : 1980Acct:[id number] Age/Sex: 44 / MADM Date: 07/30/25 Loc: HO.ED Attending Dr: Ordering Physician: Reji Sorenson MD Date of Service: 07/30/25 Procedure(s): CT abdomen pelvis w IV con Accession Number(s): [id number] cc: Reji Sorenson MD; Yue Mei DO Report Number: [id number]: Total DLP = 807.00 mGy-cm Reason for [...] 07/30/25 1344 DD/ 1306 TD/TT: 07/30/25 1328 Diecast Machine Operator: [facility] External Provider IMG CT PROCEDURES Edited Result - Final * High Sensitivity Troponin I (07/30/2025 10:57 AM EDT) [facility] TROPONIN I HIGH SENSITIVITY <2.7 <3.5 - 35.0 ng/L [facility] Comment:The [employer] high sens itivity Troponin-I results should beused in conjunction with other diagnostic information suchas ECG, clinical observations and information, and patientsymptoms to aid in the diagnosis of PA. 07/30/2025 10:5 7 AM EDT 07/30/2025 11:01 AM EDT Generic External Data Provider LAB BLOOD ORDERAB LES Final Result [facility] [address] [place] [phone] * CBC auto differential (07/30/2025 10:57 AM EDT) [facility] White Blood Count 10.8 4.8 - 10.8 X10*3/uL [facility] Red Blood Count 5.13 4.60 - 5.80 X10*6/uL [facility] Hemoglobin 14.9 14.0 - 18.0 g/dl [facility] Hematocrit 42.0 42.0 - 52.0 % [facility] Mean Corpuscular Volume 81.9 80.0 - 98.0 fL [facility] Mean Corpuscular Hemoglobin 29.0 27.0 - 33.0 pg [facility] Mean Corpuscular HGB Conc 35.5 31.0 - 36.0 g/dl [facility] Red Cell Distribution Width 14.2 11.0 - 16.0 % [facility] Platelet Count 304 160 - 400 X10*3/uL [facility] Mean Platelet Volume 11.7 9.4 - 12.4 fL [facility] Neutrophils Percent Auto 64.2 45 - 73 % [facility] Imm Gran Pct Auto 0.2 0.0 - 0.4 % [facility] Lymphocytes Percent Auto 27.7 20 - 40 % [facility] Monocytes Percent Auto 5.4 2 - 11 % [facility] Eosinophils Percent Auto 1.8 0 - 4 % [facility] Basophils Percent Auto 0.7 0 - 2 % [facility] NRBC Pct Auto 0.0 0.0 - 0.2 /100WBC [facility] Neutrophils Absolute Auto 6.9 2.0 - 8.3 x10*3/uL [facility] Imm Gran Abs Auto 0.02 0.00 - 0.03 X10*3/uL [facility] Lymphocytes Absolute Auto 3.0 1.2 - 4.9 X10*3/uL [facility] Monocytes Absolute Auto 0.6 0.1 - 1.2 X10*3/uL [facility] Eosinophils Absolute Auto 0.2 0.0 - 0.4 X10*3/uL [facility] Basophils Absolute Auto 0.1 0.0 - 0.2 X10*3/uL [facility] NRBC Abs Auto 0.000 0.0 - 0.012 X10*3/uL [facility] 07/30/2025 10:5 7 AM EDT 07/30/2025 11:01 AM EDT us Generic External Data Provider LAB BLOOD ORDERAB LES Final Result [facility] [address] [place], [place] [phone] * (ABNORMAL) Partial Thromboplastin Time, Activated (APTT) (07/30/2025 10:57 AM EDT) Partial Thromboplastin Time 37.0(H) 26.7 - 34.1 SEC [facility] 07/30/2025 10:5 7 AM EDT 07/30/2025 11:01 AM EDT Generic External Data Provider LAB BLOOD ORDERAB LES Final Result Performing Organization Address City/[facility]/ZIP Co de Phone Number [facility] [address] [place] [phone] * Prothrombin Time-INR (07/30/2025 10:57 AM EDT) Prothrombin Time 12.3 10.9 - 12.4 SEC [facility] INTERNATIONAL NORM RATIO 1.1 0.9 - 1.1 [facility] Comment:INTERNATIONAL NORMAL IZED RATIO (INR) REFERENCE [...] ORDERAB LES Final Result Performing Organization Address [facility]/ZIP Co de Phone Number [facility] [address] [place] [phone] * Lipase (07/30/2025 10:57 AM EDT) Lipase 24 8 - 78 U/L [facility] 07/30/2025 10:5 7 AM EDT 07/30/2025 11:01 AM EDT us Generic External Data Provider LAB BLOOD ORDERAB LES Final Result [facility] [address] [place], [place] [phone] * (ABNORMAL) Comprehensive Metabolic Panel (07/30/2025 10:57 AM EDT) Sodium 140 135 - 145 mmol/L [facility] Potassium 3.7 3.3 - 5.1 mmol/L [facility] Chloride 108 96 - 108 mmol/L [facility] Carbon Dioxide 25 22 - 29 mmol/L [facility] Anion Gap 11(L) 12 - 20 [facility] Urea Nitrogen (BUN) 19(H) 9 - 16 mg/dL [facility] Creatinine, Serum 1.30 0.5 - 1.4 mg/dL [facility] Creatinine Clr Calc Pharmacy 80.3 [facility] Comment:eGFR (calculated fro m the MDRD study equation) and eCrCl(calculated from the Cockcroft-Gault equation) are based ondifferent parameters and may not yield comparable results.If eCrCl result is absurd, please check patient'sheight/weight. Estimated Glomerular Filt Rate 59 [facility] Comment:Chronic Kidney Disea se: Estimated GFR < 60 mL/min/1.87s6Lhhwsh Kidney Disease: Estimated GFR < 15 mL/min/1.73m2 Glucose 105 60 - 115 mg/dL [facility] Calcium 9.4 8.4 - 10.2 mg/dL [facility] Bilirubin, Total 0.5 0.0 - 1.0 mg/dL [facility] Aspartate Amino Transferase 30 5 - 37 U/L [facility] Alanine Aminotransferase 33 0 - 40 U/L [facility] Total Protein 7.6 6.5 - 8.0 g/dL [facility] Albumin Level 4.9 3.5 - 5.0 g/dL [facility] Alkaline Phosphatase 57 39 - 117 U/L [facility] 07/30/2025 10:5 7 AM EDT 07/30/2025 11:01 AM EDT Generic External Data Provider LAB BLOOD ORDERAB LES Final Result Performing Organization Address [facility] Co de Phone Number [facility] [address] [place] [phone] * HEPATITIS C ANTIBODY RFLX (10/29/2021 9:30 AM EST) Pathologist [facility] Hepatitis C Antibody Nonreactive Nonreactive [facility] Comment: Antibodies to HCV not detected; does not exclude early acute HCV infection. 10/29/2021 9:30 AM EST Yue Mei DO HISTORICAL/NON ORDERABLE LAB S Final Result Performing Organization Address [facility] Phone [facility] [place] [address], * HIV AB/AG (10/29/2021 9:30 AM EST) [facility] HIV AB/AG Nonreactive Nonreactive [facility] [...] of detection of this assay. The [employer] Wire Stitcher Operator HIV Ag/Ab Combo assay result and supplemental assay results should be interpreted in conjunction with the patient's clinical presentation, history and other laboratory results. If the results are inconsistent with clinical evidence, additional testing is suggested to confirm the result. 10/29/2021 9:30 AM EST Yue Mei DO HISTORICAL/NON ORDERABLE LAB S Final Result Performing Organization Address [facility] de Phone Number [facility] [address] [place] [address], * (ABNORMAL) LIPID PANEL (10/29/2021 9:30 AM [...] liver disease. LDL Cholesterol Calculated 64 mg/dl [facility] Comment: Desirable LDL: less than [...] Stimulating Hormone 2.87 0.32 - 4.0 uIU/mL [facility] Comment: Note: A sustained TSH level above 2.5 uIU/mL may warrant further investigation. TSH 3rd Generation ([facility]) Alanine Aminotransferase 22 0 - 40 U/L [facility] Albumin Level 4.2 3.5 - 5.0 g/dL [facility] Alkaline Phosphatase 64 39 - 117 U/L [facility] Aspartate Amino Transferase 15 5 - 37 U/L [facility] Bilirubin Direct <0.2 0.0 - [...] LAB SYSTEM Estimated Glomerular Filt Rate 60 [facility] Comment: NOTE: For -Palestinian individuals, multiply the result by 1.210. Chronic Kidney Disease: Estimated GFR < 60 mL/min/1.73m2 Severe Kidney Disease: Estimated GFR < 15 mL/min/1.73m2 Glucose Random 97 60 - 115 mg/dL [facility] Potassium 4.2 3.3 - 5.1 mmol/L [facility] Sodium 140 135 - 145 mmol/L [facility] Vitamin D 25-OH Total 31.7 >30 ng/mL [facility] Comment: Health Based Reference Values* [...] (Free Thyroxine) 1.31 0.71 - 1.85 ng/dL [facility] 10/29/2021 9:30 AM EST us Yue Mei DO HISTORICAL/NON ORDERABLE LAB S Final Result [facility] [address] from Last 3 Months or Most Recently Relevant to Health Maintenance Care Teams Paper Cleaner Relationship Specialty Start Date End Date Yue Mei DO [address] [place] [phone] PCP - General Family Medicine 06/03/15
--- OUTSIDE RECORDS SUMMARY | 2025-09-19 15:59 | XMS_ITS | Encounter Summary ---
Author Organization [employer] Address [address] [facility] 7t [place] [address] Care Team Providers Care Financial Services Internship Name Role Phone Yue Mei DO Primary Care Provider [phone] Reason for Visit * Reason Comments Med Refill Encounter Details Date Type Department Care Team ([facility] st Contact Info) Description 03/13/2024 Refill [facility] MED[facility] [address] [place], [place] [phone] Yue Mei DO [address] [place], [place] [phone] Social History Tobacco Use Types Packs/Day Years [...] Description 10/06/2025 9:45 AM EST Office Visit [facility] [address] [place] [address] Yue Mei DO [address] [place] [address] documented as of this encounter Visit Diagnoses Not on filedocumented in this encounter Care Teams Financial Services Internship Relationship Specialty Start Date End Date Yue Mei DO [address] [place] [address] PCP - General Family Medicine 06/03/15 documented as of this encounter
--- OUTSIDE RECORDS SUMMARY | 2025-09-19 15:59 | XMS_ITS | Encounter Summary ---
Author Organization [employer] Address [address] [facility] [address] [place] [address] Care Team Providers Care Pulmonary Disease Specialist Name Role Phone Yue Mei DO Primary Care Provider [phone] Reason for Visit * Reason Comments Med Refill Encounter Details Date Type Department Care Team (Late st Contact Info) Description 11/11/2022 Refill [facility] [address] [place] [address] Yue Mei DO [address] [place] [address] Chronic GERD (Primary Dx) Social History Tobacco [...] Description 10/06/2025 9:45 AM EST Office Visit [facility] MED[facility] [address] [place] [address] Yue Mei DO [address] [place] [address] documented as of this encounter Visit Diagnoses Diagnosis Chronic GERD- Primary documented in this encounter Care Teams Pulmonary Disease Specialist Relationship Specialty Start Date End Date Yue Mei DO [address] [place] [address] PCP - General Family Medicine 06/03/15 documented as of this encounter
--- OUTSIDE RECORDS SUMMARY | 2025-09-19 15:59 | XMS_ITS | Encounter Summary ---
Author Organization [employer] Address [address] [facility] [address]t [place] [address] Care Team Providers Care Decating Machine Operator Name Role Phone Yue Mei DO Primary Care Provider [phone] Encounter Details Date Type Department Care Team (Late st Contact Info) Description 01/30/2023 Orders Only [facility] PED[facility] [address] [place] [address] Yue Ham LPN Social History Tobacco Use [...] Description 10/06/2025 9:45 AM EST Office Visit [facility] MEDICINE [address] [place] [address] Yue eMi DO [address] [place] [address] documented as of this encounter Visit Diagnoses Not on filedocumented in this encounter Care Teams Decating Machine Operator Relationship Specialty Start Date End Date Yue Mei DO [address] [place] [address] PCP - General Family Medicine 06/03/15 documented as of this encounter
--- OUTSIDE RECORDS SUMMARY | 2025-09-19 15:59 | XMS_ITS | Clinical Summary ---
Author Organization [employer] [facility] Address [address] [place] [address] Care Team Providers Care Vein Pumper Name Role Phone Unavailable Primary Care Provider [...] of 3 - 19+ 3-dose series) 1997 Depression Screening 11/13/2024 COVID-19 Vaccine (1 - 2023-2 5 season) 2025 Influenza Vaccine (#1) 2025 RSV Immunization Adult Patie nts (1 - 1-dose 75+ series) 2053 HIB Vaccines Aged Out No longer eligi [...]
--- OUTSIDE RECORDS SUMMARY | 2025-09-19 15:59 | XMS_ITS | Encounter Summary ---
Author Organization [employer] Address [address] [facility] 7t [place] [address] Care Team Providers Care Waterside Worker Name Role Phone Sigifredo Yue Primary Care Provider [phone] Reason for Visit * Reason Onset Date Comments FMLA 09/17/2025 I called the pat ient, regarding an application for FMLA. I informed him that he needs to schedule a PCP appointment, and also an appointment with urology. He stated that he had not scheduled an appointment, because he does not have insurance. He recently applied, and his insurance is now active. He agreed to come to the [facility] department, to hop picker a print out of the insurance information, and will then contact Dr. Savage's office at [phone]. Encounter Details Date Type Department Care Team (Late st Contact Info) Description 09/17/2025 Telephone [facility] MEDICINE [address] [place], [place] [phone] Yue Mei [address] [place], [place] [phone] FMLA (I called the patient, regarding an application for FMLA. I informed him that he needs to schedule a PCP appointment, and also an appointment with urology. He stated that he had not scheduled an appointment, because he does not have insurance. He recently applied, and his insurance is now active. He agreed to come to the [facility] department, to hop picker a print out of the insurance information, and will then contact Dr. Savage's office at [phone].) Social History Tobacco Use Types Packs/Day Years [...] Encounter - Jocelynn Persaud [place] - 09/17/2025 3:44 PM EST I called the patient, regarding an application for FMLA. I informed him that he needs to schedule aPCP appointment, and also an appointment with urology. He stated that he had not scheduled an appointment, because he does not have insurance. He recently applied, and his insurance is now active. Heagreed to come to the [facility] department, to hop picker a print out of the insurance information, and willthen contact Dr. Savage's office at [phone], to schedule an appointment. documented in this encounter Plan of Treatment Upcoming Encounters Date Type Department Care Team (Late st Contact Info) Description 10/06/2025 9:45 AM EST Office Visit [facility] [address] [place] [address] Yue Mei DO [address] [place] [address] documented as of this encounter Visit Diagnoses Not on filedocumented in this encounter Additional Health Concerns Assessment Noted Time PHQ-9 Depression Total Score: 0 08/04/20 25 3:13 PM EDT documented as of this encounter Care Teams Waterside Worker Relationship Specialty Start Date End Date Yue Mei DO [address] [place] [id number] PCP - General Family Medicine 06/03/15 documented as of this encounter
--- OUTSIDE RECORDS SUMMARY | 2025-09-19 16:00 | XMS_ITS | Encounter Summary ---
Author Organization [employer] Address [address] [facility] 7t [place] [address] Care Team Providers Care Meat Counter Worker Name Role Phone Yue Mei DO Primary Care Provider [phone] Encounter Details Date Type Department Care Team (Late Contact Info) Description 05/08/2023 Orders Only [facility] CHC MED & PEDS [address] [place] [address] Yue Ham LPN Social History Tobacco Use [...] Description 10/06/2025 9:45 AM EST Office Visit [facility] MEDICINE [address] [place] [address] Yue Mei DO [address] [place] [address] documented as of this encounter Visit Diagnoses Not on filedocumented in this encounter Care Teams Meat Counter Worker Relationship Specialty Start Date End Date Yue Mei DO [address] [place] [address] PCP - General Family Medicine 06/03/15 documented as of this encounter
== END 2025-09-19 15:04 | disposition home or self-care (01) ==
LOC: HO.HUSH 14:16
PROVIDERS: PCP Family Medicine; Visit Provider Urology
DX: Z13.9 Encounter for screening, unspecified (principal)

== ENCOUNTER → 2025-09-19 14:15 | Outpatient (BNVA) | payer MEDICAID, SELFPAY | PROVIDERS: PCP Family Medicine; Visit Provider Urology | DX: N32.89 Other specified disorders of bladder (principal); Z13.9 Encounter for screening, unspecified | CPT/HCPCS: 51798; 81003; 99202 ==

== ENCOUNTER 2025-10-13 08:11 | Outpatient (REF) | payer MEDICAID, SELFPAY ==
--- OUTSIDE RECORDS SUMMARY | 2025-10-13 08:22 | XMS_ITS | Encounter Summary ---
Author Organization [employer] Address [address] [facility] [address] 7[address] [place] [address] Care Team Providers Care Supervisor Erection Shop Name Role Phone Yue Mei DO Primary Care Provider Encounter Details Date Type Department Care Team (Late st Contact Info) Description 11/15/2022 Orders Only [facility] CHC MED & PEDS [address] [place] [address] Yue Ham LPN Social History Tobacco Use [...] on filedocumented in this encounter Care Teams Supervisor Erection Shop Relationship Specialty Start Date End Date Yue Mei DO [address] [place] [address] PCP - General Family Medicine 06/03/15 documented as of this encounter
--- OUTSIDE RECORDS SUMMARY | 2025-10-13 08:22 | XMS_ITS | Encounter Summary ---
Author Organization [employer] Address [address] [facility] [address] [place] [address] Care Team Providers Care Continuous Crusher Operator Name Role Phone Yue Mei DO Primary Care Provider [phone] Encounter Details Date Type Department Care Team (Late st Contact Info) Description 05/08/2023 Orders Only [facility] CHC MED & PEDS [address] [place] [address] Yue Ham LPN Social History Tobacco Use [...] on filedocumented in this encounter Care Teams Continuous Crusher Operator Relationship Specialty Start Date End Date Yue Mei DO [address] [place] [address] PCP - General Family Medicine 06/03/15 documented as of this encounter
--- OUTSIDE RECORDS SUMMARY | 2025-10-13 08:22 | XMS_ITS | Clinical Summary ---
Author Organization [facility] Address [address] [place] [address] Care Team Providers Care Drug Abuse Social Worker Name Role Phone Unavailable Primary Care Provider [...] Depression Screening 11/13/2024 COVID-19 Vaccine (1 - 2024-2 6 season) 2025 Influenza Vaccine (#1) 2025 RSV [...]
--- OUTSIDE RECORDS SUMMARY | 2025-10-13 08:22 | XMS_ITS | Encounter Summary ---
Author Organization [employer] Address [address] [facility] [address] [place] [address] Care Team Providers Care Turntable Worker Name Role Phone Yue Mei DO Primary Care Provider [phone] Reason for Visit * Reason Comments Med Refill Encounter Details Date Type Department Care Team ([facility] st Contact Info) Description 03/13/2024 Refill [facility] MEDICINE [address] [place], [place] [phone] Yue Mei DO [address] [place], [place] [phone] Social History Tobacco Use Types Packs/Day Years [...] on filedocumented in this encounter Care Teams Turntable Worker Relationship Specialty Start Date End Date Yue Mei DO [address] [place] [address] PCP - General Family Medicine 06/03/15 documented as of this encounter
--- OUTSIDE RECORDS SUMMARY | 2025-10-13 08:22 | XMS_ITS | Encounter Summary ---
Author Organization [employer] Address [address] [facility] 7t [place] [address] Care Team Providers Care Voice Over Announcer Name Role Phone Yue Mei DO Primary Care Provider [phone] Reason for Visit * Reason Onset Date Comments Med Refill Follow up breast imaging 01/30/2023 Encounter Details Date Type Department Care Team (Late st Contact Info) Description 01/30/2023 Refill [facility] MEDICINE [address] [place] [address] Yue Mei DO [address] [place], [place] [phone] Social History Tobacco Use Types Packs/Day Years [...] he's able to leave work early if [facility] [place] had afternoon appointments. Let patient know that due to his work schedule it might be best for him to call in and arrange the appointment himself . I provided patient with the number and let him know of the Arabic speaking staff that works there , Message forwarded to pcp as fyi. documented in this encounter Plan of Treatment Not on file documented as of this encounter Visit Diagnoses Not on filedocumented in this encounter Care Teams Voice Over Announcer Relationship Specialty Start Date End Date Yue Mei DO [address] [place] [address] PCP - General Family Medicine 06/03/15 documented as of this encounter
--- OUTSIDE RECORDS SUMMARY | 2025-10-13 08:22 | XMS_ITS | Encounter Summary ---
Author Organization [employer] Address [address] [facility] [address] 7[address] [place] [address] Care Team Providers Care Tire Repair Mechanic Name Role Phone Yue Mei DO Primary Care Provider + [phone] Encounter Details Date Type Department Care Team (Late st Contact Info) Description 10/09/2023 Orders Only [facility] CHC MED & PEDS [address] [place] [address] Lexus Cao LPN Social History Tobacco Use [...] (NOBLES) (07/08/2024 10:36 AM EDT) [employer] SERIAL# [id number] [facility] COVID-19 TEST Negative Negative [facility] COVID-19 NOTE See Note [facility] Comment: Results are for the identification of SARS-CoV2 RNA. TheSARS-CoV2 RNA is generally detectable in respiratory samplesduring the acute phase of infection. Positive results areindicative of the presence of SARS-CoV-2 RNA; clinicalcorrelation with patient history and other diagnosticinformation is necessary to determine patient infectionstatus. Positive results do not rule out bacterial infectionor co- infection with other viruses.Testing facilities within the [facility] and [facility] are required to report all positive [...] LAB MOLECULAR ROBB GNO[employer] ORDERABLES Final Result [facility] [address] [place] [address] [phone] documented in this encounter Visit Diagnoses Not on filedocumented in this encounter Care Teams Tire Repair Mechanic Relationship Specialty Start Date End Date Yue Mei DO [address] [place] [id number] PCP - General Family Medicine 06/03/15 documented as of this encounter
--- OUTSIDE RECORDS SUMMARY | 2025-10-13 08:22 | XMS_ITS | Encounter Summary ---
Author Organization [employer] Address [address] [facility] 7t [place] [address] Care Team Providers Care Shirt Cleaner Name Role Phone Yue Mei DO Primary Care Provider [phone] Reason for Visit * Reason Comments Med Refill Encounter Details Date Type Department Care Team ([facility] st Contact Info) Description 11/11/2022 Refill [facility] CHC MED & PEDS [address] [place] [address] Yue Mei DO [address] [place], [place] [phone] Chronic GERD (Primary Dx) Social History Tobacco [...] Primary documented in this encounter Care Teams Shirt Cleaner Relationship Specialty Start Date End Date Yue Mei DO [address] [place], [place] [phone] PCP - General Family Medicine 06/03/15 documented as of this encounter
--- OUTSIDE RECORDS SUMMARY | 2025-10-13 08:22 | XMS_ITS | Encounter Summary ---
Author Organization [employer] Address [address] [facility] [address] [facility] [address] 7[address] [place] [address] Care Team Providers Care Exchange Floor Manager Name Role Phone Yue Mei DO Primary Care Provider Encounter Details Date Type Department Care Team (Late st Contact Info) Description 01/30/2023 Orders Only [facility] CHC MED & PEDS [address] [place] [address] Yue Ham LPN Social History Tobacco Use [...] on filedocumented in this encounter Care Teams Exchange Floor Manager Relationship Specialty Start Date End Date Yue Mei DO [address] [place] [phone] PCP - General Family Medicine 06/03/15 documented as of this encounter
--- OUTSIDE RECORDS SUMMARY | 2025-10-13 08:22 | XMS_ITS | Clinical Summary ---
Author Organization [employer] Address [address] [facility] [address] [place] [address] Care Team Providers Care Online Project Manager Name Role Phone Yue Mei DO Primary Care Provider [phone] Allergies No known active allergies Medications fluticasone (Flonase Allergy Relief) 50 MCG/ACT nasal sprayIndicatio ns:Nasal congestion Administer 1 spray into each nostril [...] Once per day. 90 tablet 3 5 11:18 AM EST 02/14/20 25 026 Active acetaminophen (Tylenol) 500 MG tablet Take 1-2 tablets (500-1,000 mg) by mouth every 6 (six) hours if needed for moderate pain or fever. 50 tablet 1 07/31/20 25 026 Active famotidine (Pepcid) 20 MG tablet TAKE 1 TABLET BY MOUTH TWICE DAILY 180 tablet 1 08/21/20 25 Active hydrALAZINE (Apresoline) 50 MG tabletIndicati ons:Hypertensi on, unspecified type TAKE 1 TABLET BY MOUTH TWICE DAILY IN THE MORNING AND IN THE EVENING WITH FOOD 180 tablet 1 08/21/20 25 Active losartan (Cozaar) 100 MG tabletIndicati ons:Hypertensi on, unspecified type TAKE 1 TABLET BY MOUTH EVERY MORNING 90 tablet 1 5 11:18 AM EST 08/21/20 25 Active omeprazole (PriLOSEC) [address] capsule TAKE 1 CAPSULE BY MOUTH EVERY MORNING 90 capsule 1 5 11:18 AM EST 08/21/20 25 Active hydroCHLOROthi azide (HYDRODiuril) 25 MG tablet Take 1 tablet (25 mg) by mouth in the morning. 90 tablet 5 11:18 AM EST 09/23/20 25 Active hydroCHLOROthi azide (HYDRODiuril) 25 MG tablet TAKE 1 TABLET BY MOUTH EVERY MORNING 90 tablet 04/30/20 25 025 Discontinued(Re order (will not trigger notification to Pharmacy)) Hospital, Clinic, or Other Facility Administered Medication Ordered Dose Route Frequency Start Date End Date Status cloNIDine (Catapres) tablet 0.2 mgIndications:Hypertensive urgency 0.2 mg PO Once 02/05/2024 Active Active Problems Problem Noted Date Diagnosed Date BMI 40.0-44.9, adult ([facility]) 12/19/2022 Status post nephrectomy 12/19/2022 History of migraine 10/15/2022 History of nephrolithiasis 10/15/2022 Overview (10/15/2022): History of calculus of kidney Elevated fasting glucose 03/08/2016 Essential hypertension 03/08/2016 Chronic gastroesophageal reflux disease 03/08/20 16 Resolved Problems Problem Noted Date Diagnosed Date Resolved Date Abnormal CT scan, bladder 08/04/2025 Assessment & Plan (08/04/2025 3:49 PM EDT): Orders: Referral to Urology; Future Obesity 03/08/2016 02/08/2023 Encounters Date Type Department Care Team Description 10/06/2025 9:45 AM EST Office Visit [facility] [address] [place] [address] Yue Mei DO Routine history and physical examination of adult (Primary Dx); Essential hypertension; Chronic gastroesophageal reflux disease; Bladder mass; Encounter for immunization 10/06/2025 Travel 10/01/[address] [address] Yue Mei DO Chart Prep 09/26/2025 Patient Outreach [address] [address] Yue Mei DO Pre-visit Planning (SDOH screening completed on 08/04/2025) 09/23/[address] [address] Yue Mei DO 09/17/[address] [address] Yue Mei DO FMLA (The patient's spouse came to the [facility] department, and picked up a copy of his insurance information. I informed her that he is scheduled to see his PCP on 10/06/25 at 9:45 am, to discuss the need for FMLA. I also provided the address and telephone number, to Dr. Savage's office at [facility]. She verbalized understanding, and agreed to relay the information to the patient.) 09/17/[address] [phone] Yue Mei DO FMLA (I called the patient, regarding an application for FMLA. I informed him that he needs to schedule a PCP appointment, and also an appointment with urology. He stated that he had not scheduled an appointment, because he does not have insurance. He recently applied, and his insurance is now active. He agreed to come to the [facility] department, to medicinal plant picker a print out of the insurance information, and will then contact Dr. Savage's office at [phone].) 08/19/2025 Refill [facility] [address] [place] [phone] Yue Mei DO Hypertension, unspecified type 08/07/[address] [address] Mary Cristina RN ER Follow-up 08/04/2025 3:30 PM EDT Office Visit [address] [place] [address] Isatu Gaming NP Abnormal CT scan, bladder (Primary Dx) 08/04/2025 Travel 2025 Telephone [facility] [address] [place] [address] Isatu Gaming NP Chart Prep 07/30/2025 Refill [facility] [address] [place], [place] [phone] Yue Mei DO 07/30/2025 Orders Only GENERIC EXTERNAL DATA DEPARTMENT Provider, Generic External Data from Last 3 Months Immunizations Immunization Administration Dates Next Due HPV, Bivalent 11/16/2009 Hep B, Adolescent or Pediatric 01/25/2007 Pfizer Covid-19 Vaccine 12+ 10/06/2025,0 06/08/2022,04/01/2021,2020 TD (adult), 2 Lf tetanus tox oid, preservative free, adsorbed 11/13/2000 Tdap 03/05/2025,06/16/2015 Family History Medical History Relation Name Comments Breast cancer Cousin Heart disease Father Hypertension Father Diabetes Father's Sister Hypertension Mother Diabetes Mother's Sister Relation Name Status Comments Cousin Other Father Father's Sister Mother Mother's Sister Social History Tobacco Use Types Packs/Day Years [...] housing situation today? I have libbyisrrael [employer] 08/04/[address] you [...] Sign Reading Time Taken Comments Blood Pressure 138/90 10/06/2025 9:42 AM EST Pulse 88 10/06/2025 9:42 AM EST Temperature 37.4 C (99.4 F) 10/06/2025 9:42 AM EST Respiratory Rate 20 10/06/2025 9:42 AM EST Oxygen Saturation 99% 10/06/2025 9:42 AM EST Inhaled Oxygen Concentration - - Weight 112 kg (246 lb 4.8 oz) 10/06/2025 9:42 AM EST Height 160 cm (5' 3 ) 10/06/2025 9:42 AM EST Body Mass Index 43.63 10/06/2025 9:42 AM EST Plan of Treatment Health Maintenance Due Date Last Done Comments CT Colonography 1978 Colonoscopy 1978 Colorectal Cancer Screening 1978 FIT DNA/Cologuard 1978 FIT 1978 FOBT 1978 Sigmoidoscopy 1978 Family Planning (PISQ) 1993 Hepatitis B Vaccines (1 of 3 - 19+ 3-dose series) 1997 01/25/2007 Influenza Vaccine (#1) 2025 Alcohol/Substance Use Screening 08/04/2026 08/04/2025 Depression Screening 08/04/2026 08/04/2025, 09/22/20 25 Disability Screening 08/04/2026 08/04/2025 SDOH Screening 08/04/2026 08/04/2025 Tobacco Screening 10/06/2026 10/06/2025 Lipid Panel 10/29/2026 10/29/2021 Zoster Vaccines (1 of 2) 2028 DTaP/Tdap/Td Vaccines (3 - Td or Tdap) 03/05/2035 03/05/2025, 06/16/2015, 11/13/2000 RSV Patients and Patients Aged 60 years or older (1 - 1-dose 75+ series) 2053 HPV Vaccines Aged Out 11/16/2009 No longer eligi ble based on patient's age to complete this topic HIV Screening Completed 10/29/2021 Hepatitis C Screening Completed 10/29/2021 COVID-19 Vaccine Completed 10/06/2025, , 04/01/2021, Additional history exists HIB Vaccines Aged Out No longer eligi [...] 49) Years Aged Out No longer eligible based on [...] AUTO DIFFERENTIAL Routine 07/30/2025 10:57 AM EDT [facility] HISTORICAL HEPATITIS C ANTIBODY RFLX Routine 10/29/2021 9:30 AM EST [facility] HISTORICAL HIV AB/AG Routine 10/29/2021 9:30 AM EST [facility]ZZ HISTORICAL LIPID PANEL Routine 10/29/2021 9:30 AM EST from Last 3 Months or Most Recently Relevant to Health Maintenance Results * (ABNORMAL) Urinalysis w/reflex microscopic (07/30/2025 1:46 PM EDT) Color Urine Yellow [facility] Appearance Urine Clear [facility] PH 6.5 5.0 - 9.0 [facility] Glucose Urine UA Negative Negative mg/dL [facility] Urine Blood Negative Negative [facility] Specific Arthur - Urine >=1.030(H) 1.005 - 1.025 [facility] Urine Protein Negative Neg-Trace mg/dL [facility] Urine Ketones Negative Negative mg/dL [facility] Nitrite Urine Negative Negative [facility] Leukocyte Esterase Urine Negative Negative [facility] 07/30/2025 1:46 PM EDT 07/30/2025 1:51 PM EDT Narrative [facility] - 07/30/2025 1:56 PM EDT [id number], Clean Catch us Generic External Data Provider LAB URINE ORDERAB LES Final Result [facility] [address] [place] [phone] * CT Abdomen Pelvis w/ Contrast (07/30/2025 1:06 PM EDT) Anatomical Region Laterality Modality Body, Pelvis, Abdomen Computed T omography 07/30/2025 1:06 PM EDT Narrative 07/30/2025 1:47 PM EDT [address] [address] [address] Scan Report Signed Patient: Jm King MR#: [id number] : 1980 Acct:[id number] Age/Sex: 44 / M ADM Date: 07/30/25 Loc: HO.ED Attending Dr: Ordering Physician: Reji Sorenson MD Date of Service: 07/30/25 Procedure(s): CT abdomen pelvis w IV con Accession Number(s): [id number] cc: Reji Sorenson MD; Yue Mei DO Report Number: [id number]: Total DLP = 807.00 mGy-cm Reason for [...] 07/30/25 1344 DD/ 1306 TD/TT: 07/30/25 1328 Crab Catcher: Procedure Note Donotuseinterpreter, Image - 07/30/[address] [address] [address] Scan Report Signed Patient: Jm King EMR#: [id number] : 1980Acct:[id number] Age/Sex: 44 / MADM Date: 07/30/25 Loc: HO.ED Attending Dr: Ordering Physician: Reji Sorenson MD Date of Service: 07/30/25 Procedure(s): CT abdomen pelvis w IV con Accession Number(s): [id number] cc: Reji Sorenson MD; JosefaidenYue Ndiaye Report Number: [id number]: Total DLP = 807.00 mGy-cm Reason for [...] 07/30/25 1344 DD/ 1306 TD/TT: 07/30/25 1328 Crab Catcher: [facility] External Provider IMG CT PROCEDURES Edited Result - Final * High Sensitivity Troponin I (07/30/2025 10:57 AM EDT) [facility] TROPONIN I HIGH SENSITIVITY <2.7 <3.5 - 35.0 ng/L [facility] Comment:The [employer] high sens itivity Troponin-I results should beused in conjunction with other diagnostic information suchas ECG, clinical observations and information, and patientsymptoms to aid in the diagnosis of [place]. 07/30/2025 10:5 7 AM EDT 07/30/2025 11:01 AM EDT Generic External Data Provider LAB BLOOD ORDERAB LES Final Result [facility] [address] [place] [phone] * CBC auto differential (07/30/2025 10:57 AM EDT) Pathologist [facility] White Blood Count 10.8 4.8 - 10.8 X10*3/uL [facility] Red Blood Count 5.13 4.60 - 5.80 X10*6/uL [facility] Hemoglobin 14.9 14.0 - 18.0 g/dl [facility] Hematocrit 42.0 42.0 - 52.0 % [facility] Mean Corpuscular Volume 81.9 80.0 - 98.0 fL [facility] Mean Corpuscular Hemoglobin 29.0 27.0 - 33.0 pg [facility] Mean Corpuscular HGB Conc 35.5 31.0 - 36.0 g/dl [facility] Red Cell Distribution Width 14.2 11.0 - 16.0 % [facility] Platelet Count 304 160 - 400 X10*3/uL [facility] Mean Platelet Volume 11.7 9.4 - 12.4 fL [facility] Neutrophils Percent Auto 64.2 45 - 73 % [facility] Imm Gran Pct Auto 0.2 0.0 - 0.4 % [facility] Lymphocytes Percent Auto 27.7 20 - 40 % [facility] Monocytes Percent Auto 5.4 2 - 11 % [facility] Eosinophils Percent Auto 1.8 0 - 4 % [facility] Basophils Percent Auto 0.7 0 - 2 % [facility] NRBC Pct Auto 0.0 0.0 - 0.2 /100WBC [facility] Neutrophils Absolute Auto 6.9 2.0 - 8.3 x10*3/uL [facility] Imm Gran Abs Auto 0.02 0.00 - 0.03 X10*3/uL [facility] Lymphocytes Absolute Auto 3.0 1.2 - 4.9 X10*3/uL [facility] Monocytes Absolute Auto 0.6 0.1 - 1.2 X10*3/uL [facility] Eosinophils Absolute Auto 0.2 0.0 - 0.4 X10*3/uL [facility] Basophils Absolute Auto 0.1 0.0 - 0.2 X10*3/uL [facility] NRBC Abs Auto 0.000 0.0 - 0.012 X10*3/uL [facility] 07/30/2025 10:5 7 AM EDT 07/30/2025 11:01 AM EDT Generic External Data Provider LAB BLOOD ORDERAB LES Final Result Performing Organization Address [facility] Co de Phone Number [facility] [address] [place] [phone] * (ABNORMAL) Partial Thromboplastin Time, Activated (APTT) (07/30/2025 10:57 AM EDT) Partial Thromboplastin Time 37.0(H) 26.7 - 34.1 SEC [facility] 07/30/2025 10:5 7 AM EDT 07/30/2025 11:01 AM EDT Generic External Data Provider LAB BLOOD ORDERAB LES Final Result Performing Organization Address [facility] Phone Number [facility] [address] [place] [phone] * Prothrombin Time-INR (07/30/2025 10:57 AM EDT) Prothrombin Time 12.3 10.9 - 12.4 SEC [facility] INTERNATIONAL NORM RATIO 1.1 0.9 - 1.1 [facility] Comment:INTERNATIONAL NORMAL IZED RATIO (INR) [...] ORDERAB LES Final Result Performing Organization Address [facility] Co de Phone Number [facility] [address] [place] [phone] * Lipase (07/30/2025 10:57 AM EDT) Lipase 24 8 - 78 U/L [facility] 07/30/2025 10:5 7 AM EDT 07/30/2025 11:01 AM EDT us Generic External Data Provider LAB BLOOD ORDERAB LES Final Result [facility] [address] [place] [phone] * (ABNORMAL) Comprehensive Metabolic Panel (07/30/2025 10:57 AM EDT) Sodium 140 135 - 145 mmol/L [facility] Potassium 3.7 3.3 - 5.1 mmol/L [facility] Chloride 108 96 - 108 mmol/L [facility] Carbon Dioxide 25 22 - 29 mmol/L [facility] Anion Gap 11(L) 12 - 20 [facility] Urea Nitrogen (BUN) 19(H) 9 - 16 mg/dL [facility] Creatinine, Serum 1.30 0.5 - 1.4 mg/dL [facility] Creatinine Clr Calc Pharmacy 80.3 [facility] Comment:eGFR (calculated fro m the MDRD study equation) and eCrCl(calculated from the Cockcroft-Gault equation) are based ondifferent parameters and may not yield comparable results.If eCrCl result is absurd, please check patient'sheight/weight. Estimated Glomerular Filt Rate 59 [facility] Comment:Chronic Kidney Disea se: Estimated GFR < 60 mL/min/1.88r6Eyknmy Kidney Disease: Estimated GFR < 15 mL/min/1.73m2 Glucose 105 60 - 115 mg/dL [facility] Calcium 9.4 8.4 - 10.2 mg/dL [facility] Bilirubin, Total 0.5 0.0 - 1.0 mg/dL [facility] Aspartate Amino Transferase 30 5 - 37 U/L [facility] Alanine Aminotransferase 33 0 - 40 U/L [facility] Total Protein 7.6 6.5 - 8.0 g/dL [facility] Albumin Level 4.9 3.5 - 5.0 g/dL [facility] Alkaline Phosphatase 57 39 - 117 U/L [facility] 07/30/2025 10:5 7 AM EDT 07/30/2025 11:01 AM EDT us Generic External Data Provider LAB BLOOD ORDERAB LES Final Result [facility] [address] [place] [phone] * HEPATITIS C ANTIBODY RFLX (10/29/2021 9:30 AM EST) Hepatitis C Antibody Nonreactive Nonreactive [facility] Comment: Antibodies to HCV not detected; does not exclude early acute HCV infection. 10/29/2021 9:30 AM EST Yue Mei DO HISTORICAL/NON ORDERABLE LAB S Final Result Performing Organization Address City/[facility]/ZIP Co de Phone Number [facility] [address] * HIV AB/AG (10/29/2021 9:30 AM [...] of detection of this assay. The [employer]aster Machine Operator HIV Ag/Ab Combo assay result and supplemental assay results should be interpreted in conjunction with the patient's clinical presentation, history and other laboratory results. If the results are inconsistent with clinical evidence, additional testing is suggested to confirm the result. 10/29/2021 9:30 AM EST Yue Sigirfedo DO HISTORICAL/NON ORDERABLE LAB S Final Result [facility] [address] [place] [address], * (ABNORMAL) LIPID PANEL (10/29/2021 9:30 AM [...] liver disease. LDL Cholesterol Calculated 64 mg/dl [facility] Comment: Desirable LDL: less than [...] Stimulating Hormone 2.87 0.32 - 4.0 uIU/mL [facility] Comment: Note: A sustained TSH [...] Rate 60 [facility] Comment: NOTE: For -Danish individuals, multiply the result by 1.210. Chronic Kidney Disease: Estimated GFR < 60 mL/min/1.73m2 Severe Kidney Disease: Estimated GFR < 15 mL/min/1.73m2 Glucose Random 97 60 - 115 mg/dL [facility] Potassium 4.2 3.3 - 5.1 mmol/L [facility] Sodium 140 135 - 145 mmol/L [facility] Vitamin D 25-OH Total 31.7 >30 ng/mL [facility] Comment: Health Based Reference Values* [...] (Free Thyroxine) 1.31 0.71 - 1.85 ng/dL [facility] 10/29/2021 9:30 AM EST us Yue Mei DO HISTORICAL/NON ORDERABLE LAB S Final Result [facility] [address] from Last 3 Months or Most Recently Relevant to Health Maintenance Insurance [facility] [employer] Care Teams Online Project Manager Relationship Specialty Start Date End Date Yue Mei DO [address] [place] [phone] PCP - General Family Medicine 06/03/15
[2025-10-13 11:27] LABS: Hematocrit 42.2 % (42.0-52.0); Hemoglobin 14.3 g/dl (14.0-18.0); Mean Corpuscular HGB Conc 33.9 g/dl (31.0-36.0); Mean Corpuscular Hemoglobin 28.8 pg (27.0-33.0); Mean Corpuscular Volume 84.9 fL (80.0-98.0); NRBC Abs Auto 0.000 X10*3/uL (0.0-0.012); NRBC Pct Auto 0.0 /100WBC (0.0-0.2); Platelet Count 301 X10*3/uL (160-400); Red Blood Count 4.97 X10*6/uL (4.60-5.80); White Blood Count 9.3 X10*3/uL (4.8-10.8)
[2025-10-13 12:22] LABS: Microalbum/Creatinine Ratio Ur 25.6 ug/mg cr (<30)
[2025-10-13 12:27] LABS: Alanine Aminotransferase 26 U/L (0-40); Albumin Level 4.5 g/dL (3.5-5.0); Alkaline Phosphatase 71 U/L (39-117); Anion Gap 10 (12-20); Aspartate Amino Transferase 23 U/L (5-37); Blood Urea Nitrogen 19 mg/dL (9-16); Calcium 9.1 mg/dL (8.4-10.2); Carbon Dioxide 28 mmol/L (22-29); Chloride 109 mmol/L (96-108); Cholesterol 98 mg/dL (<200); Estimated Glomerular Filt Rate > 60; Free T4 (Free Thyroxine) 1.07 ng/dL (0.71-1.85); HDL Cholesterol 35 mg/dL (>40); Potassium 3.7 mmol/L (3.3-5.1); Sodium 143 mmol/L (135-145); Thyroid Stimulating Hormone 2.01 uIU/mL (0.32-4.0); Total Protein 7.1 g/dL (6.5-8.0); Triglycerides 44 mg/dL (<150)
[2025-10-13 12:35] LABS: HBS Num1 21.24 mIU/mL (0-7.99); HBsAGNum1 0.45 S/CO (0.00-0.99); HIV Num 1 0.05 S/CO (0.00-0.99); Hepatitis B Surface Antigen Negative (Negative); ~HepC Num1 0.07 S/CO (0.00-0.79); ~Hepatitis B Surface Antibody REACTIVE (Nonreactive); ~Hepatitis C Antibody Nonreactive (Nonreactive)
== END 2025-10-13 08:12 | disposition home or self-care (01) ==
LOC: HO.HHCL 08:11
PROVIDERS: PCP Family Medicine; Visit Provider Family Medicine
DX: I10 Essential (primary) hypertension (principal); Z11.4 Encounter for screening for human immunodeficiency virus [HIV]; Z11.59 Encounter for screening for other viral diseases; Z01.84 Encounter for antibody response examination
CPT/HCPCS: 36415; 80048; 80061; 80076; 82043; 82306; 82570; 83036; 84439; 84443; 85027; 86592; 86706; 86803; 87340; 87389